=== PATIENT | female | born 1950 | race Caucasian/White ===

== ENCOUNTER 2020-09-05 00:20 | Emergency (ER) | payer MEDICARE ==
[2020-09-05] MEDS ORDERED: TYLENOL 325 MG PO STA (00:49)
[2020-09-05 01:07] LABS: Absolute Neutrophil Ct (ANC) 4.28 (1.4-6.9); BASOPHIL % 0.2 % (0.0-0.4); Basophil (Absolute #) 0.02 (0-0.4); Eosinophil % 3.4 % (0.00-5.0); Eosinophil (Absolute #) 0.28 (0-0.5); Hematocrit 42.3 % (35-47); Hemoglobin 13.6 gm/dl (12.0-16.0); Lymphocyte (Absolute #) 2.92 (1.0-4.6); Lymphocytes % 35.1 % (24.0-44.0); Mean Cell Volume 93.6 fl (78-100); Mean Corpuscular Hemoglobin 30.1 pg (26-32); Mean Corpuscular Hgb Concent. 32.2 g/dl (32-36); Mean Platelet Volume 10.4 fl (7.5-11.0); Monocyte (Absolute #) 0.81 (0.0-1.3); Monocytes % 9.7 % (0.0-12.0); Neutrophil % 51.6 % (36.0-66.0); Platelet Count 196 K/mm3 (150-450); Red Blood Count 4.52 M/mm3 (4.1-5.4); Red Cell Distribution Width 13.3 % (11.5-14.0); White Blood Count 8.3 K/mm3 (4.0-10.5)
[2020-09-05] MEDS ORDERED: TYLENOL 325 MG ONE (01:12)
[2020-09-05 01:13] LABS: INR 1.17 (0.8-3.0); PROTIME 13.2 SECONDS (9.95-12.35)
[2020-09-05 01:15] LABS: PTT 29.7 SECONDS (25.3-37.0)
[2020-09-05 01:17] LABS: ALBUMIN 4.3 g/dL (3.5-5.0); ALKALINE PHOSPHATASE 110 U/L (38-126); ANION GAP 9.4 MEQ/L (5-15); BLOOD UREA NITROGEN 16 mg/dL (7-17); CHLORIDE 99 mmol/L (98-107); Calcium 9.7 mg/dL (8.4-10.2); Carbon Dioxide 31 mmol/L (22-30); Creatinine 1 0.66 mg/dL (0.52-1.04); EST GLOMERULAR FILTRATION RATE > 60.0 ML/MIN; Glucose 156 mg/dL (74-106); Potassium 3.4 mmol/L (3.5-5.1); SGOT/AST 32 U/L (14-36); SGPT/ALT 26 U/L (0-35); SODIUM 136 mmol/L (137-145); Total Protein 7.2 g/dL (6.3-8.2)
--- NOTE | 2020-09-05 02:11 | ERPHSYRPT ---
- History of Present Illness Time Seen by Provider: 09/05/20 00:28 Source: patient Exam Limitations: no limitations Patient Subjective Stated Complaint: pt c/o headache Triage Nursing Assessment: pt c/o headache to rt posterior side, s/p acute right MCA stroke on 08/29/20. Pt was just released on 08/31/20 from [facility]. will obtain med records from [facility]. Pt states, "headache woke me up from sleep, it's an intermittent headache, just a pain, not throbbing or anything". Glascow Coma scale is 0. Physician History: 70 years old female with history of hypertension, hyperlipidemia, diabetes mellitus, hypothyroidism with recent right MCA stroke 08/29/2020 with residual visual symptoms who was discharged from [facility] 08/31/2020 presented in the ER with sudden onset right temporal headache which woke her up from sleep almost an hour prior to arrival. Patient described this as a sharp nature pain moderat e intensity without any significant aggravating or relieving factors. Denies any associated numbness tingling or focal weakness. No difficulty speech. She has visual disturbance from her previous stroke which is not any worse than usual since then. Denies any difficulty walking. No neck pain or stiffness. Denies any fever chills or recent sick contact. Patient reports last time when she had stroke was having headache for almost 2 weeks similar to this. Timing/Duration: hour(s) (1), sudden, worse Quality: sharpness Head Pain Location: parietal Severity of Pain-Max: moderate Severity of Pain-Current: moderate Associated Symptoms: visual disturbance, No confusion, No dizziness, No facial pain, No fever/chills, No light-headedness, No loss of consciousness, No nausea/vomiting, No nasal congestion, No nasal drainage, No neck pain, No nu mbness in legs/feet, No sweating, No seizures, No sinus infection, No sensitive to light, No speech problems, No stiff neck, No trouble walking, No weakness Previous symptoms: same symptoms as today Allergies/Adverse Reactions: erythromycin base Allergy (Verified 09/05/20 01:05) Anaphylactic Reaction iodine Allergy (Verified 09/05/20 01:05) Anaphylactic Reaction procaine [From Novocain] Allergy (Verified 09/05/20 01:03) Anaphylactic Reaction azithromycin [From Zithromax] Adverse Reaction (Verified 09/05/20 01:03) Rash Penicillins Adverse Reaction (Verified 09/05/20 01:03) Rash Sulfa (Sulfonamide Antibiotics) Adverse Reaction (Verified 09/05/20 01:03) Rash Home Medications: Atenolol 50 mg [Tenormin 50 mg] 50 mg DAILY 11/07/15 [History] Metformin HCl 500 mg [Glucophage 500 MG] 500 mg BID 11/07/15 [History] Amlodipine Besylate 5 mg [Norvasc 5 mg] 5 mg PO DAILY 09/05/20 [History] Aspirin 81 mg PO DAILY 09/05/20 [History] Atorvastatin Calcium 80 mg PO HS 09/05/20 [History] Azelastine HCl 1 drop BID PRN 09/05/20 [History] Clopidogrel Bisulfate 75 mg [PLAVIX 75 MG Tablet] 75 mg PO DAILY 09/05/20 [History] Glimepiride 1 mg PO DAILY 09/05/20 [History] Latanoprost/Pf [Latanoprost 0.005% Eye Drop] 1 drop DAILY 09/05/20 [History] Losartan Potassium 50 mg [Cozaar 50 MG] 50 mg PO DAILY 09/05/20 [History] Naproxen Sodium 550 mg PO BID PRN 09/05/20 [History] Hx Tetanus, Diphtheria Vaccination/Date Given: Yes Hx Influenza Vaccination/Date Given: Yes Hx Pneumococcal Vaccination/Date Given: Yes Immunizations Up to Date: No Travel Risk - International Travel Have you traveled outside of the country in past 3 weeks: No - Coronavirus Screening Are you exhibiting any of the following symptoms?: No Close contact with a COVID-19 positive Pt in past 14-21 Days: No - Review of Systems Constitutional: No Symptoms Eyes: Vision Changes, Double Vision Ears, Nose, & Throat: No Symptoms Respiratory: No Symptoms Cardiac: No Symptoms Abdominal/Gastrointestinal: No Symptoms Genitourinary Symptoms: No Symptoms Musculoskeletal: No Symptoms Skin: No Symptoms Neurological: Headache Psychological: No Symptoms Endocrine: No Symptoms Hematologic/Lymphatic: No Symptoms Immunological/Allergic: No Symptoms - Past Medical History Pertinent Past Medical History: Yes Neurological History: Stroke ENT History: Other Cardiac History: High Cholesterol, Hypertension Respiratory History: No Pertinent History Endocrine Medical History: Diabetes Type II, Hypothyroidism Musculoskeletal History: Osteoarthritis GI Medical History: GERD History: No Pertinent History Psycho-Social History: No Pertinent History Female Reproductive Disorders: No Pertinent History Other Medical History: hearing loss - Past Surgical History Past Surgical History: Yes Neuro Surgical History: No Pertinent History Cardiac: No Pertinent History Respiratory: No Pertinent History Gastrointestinal: Cholecystectomy Genitourinary: No Pertinent History Female Surgical History: Section Other Surgical History: tonsils - Social History Smoking Status: Never smoker Exposure to second hand smoke: No Drug Use: none Patient Lives Alone: No - Nursing Vital Signs Nursing Vital Signs: Initial Vital Signs Temperature 98.5 F 09/05/20 00:26 Pulse Rate 72 09/05/20 00:26 Respiratory Rate 18 09/05/20 00:26 Blood Pressure 196/81 09/05/20 00:26 O2 Sat by Pulse Oximetry 99 09/05/20 00:26 Pain Scale Pain Intensity 5 - Physical Exam General Appearance: no apparent distress Eye Exam: PERRL/EOMI, eyes nml inspection Ears, Nose, Throat Exam: normal ENT inspection, TMs normal, pharynx normal Neck Exam: normal inspection, non-tender, supple, full range of motion Respiratory Exam: normal breath sounds, lungs clear Cardiovascular Exam: regular rate/rhythm, normal heart sounds Gastrointestinal/Abdominal Exam: soft, normal bowel sounds Back Exam: normal inspection, normal range of motion Extremity Exam: normal inspection, normal range of motion Mental Status Exam: alert, oriented x 3, 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 Exam: normal hearing, normal speech, PERRL, No abnormal eye position Coordination/Gait Exam: normal finger to nose, normal gait, normal cerebellar function, negative Romberg's sign Motor/Sensory Exam: no motor deficit, no sensory deficit, no pronator drift, negative Babinski's sign DTR Exam: bicep (R): 2+, bicep (L): 2+, knee (R): 2+, knee (L): 2+ Skin Exam: normal color SpO2 Interpretation: normal SpO2: 100 O2 Delivery: Room Air - Course EKG Interpreted by Me: RATE (70), Sinus Rhythm, NORMAL AXIS, NORMAL INTERVALS, Other (Nonspecific ST and T wave changes) Ordered Tests: Active Orders 24 hr Category Date Time Status Alterations Tailor STAT Care 09/05/20 00:36 Active EKG-ER Only STAT Care 09/05/20 00:35 Active IV Insertion STAT Care 09/05/20 00:35 Active NPO (ED) STAT Care 09/05/20 00:35 Active POCT Glucose Check STAT Care 09/05/20 00:35 Active HEAD WITHOUT CONTRAST [CT] Stat Exams 09/05/20 00:36 Taken CBC W DIFF Stat Lab 09/05/20 01:03 Completed CMP Stat Lab 09/05/20 01:03 Completed PROTIME WITH INR Stat Lab 09/05/20 01:03 Completed PTT Stat Lab 09/05/20 01:03 Completed UA W/RFX UR CULTURE Stat Lab 09/05/20 00:35 Ordered Medication Summary Discontinued Medications Generic Name Dose Route Start Last Admin Trade Name Freq PRN Reason Stop Dose Admin Acetaminophen 975 mg 09/05/20 00:49 09/05/20 01:13 Tylenol 325 Mg PO 09/05/20 00:50 975 mg STAT STA Administration Acetaminophen Confirm 09/05/20 01:12 Tylenol 325 Mg Administered 09/05/20 01:13 Dose 975 mg .ROUTE .STK-MED ONE Lab/Rad Data: Laboratory Result Diagrams 09/05/20 01:03 09/05/20 01:03 Laboratory Results 09/05/20 09/05/20 09/05/20 Range/Units 01:03 01:03 01:03 WBC 8.3 (4.0-10.5) K/mm3 RBC 4.52 (4.1-5.4) M/mm3 Hgb 13.6 (12.0-16.0) gm/dl Hct 42.3 (35-47) % MCV 93.6 (78-100) fl MCH 30.1 (26-32) pg MCHC 32.2 (32-36) g/dl RDW 13.3 (11.5-14.0) % Plt Count 196 (150-450) K/mm3 MPV 10.4 (7.5-11.0) fl Gran % 51.6 (36.0-66.0) % Eos # (Auto) 0.28 (0-0.5) Absolute Lymphs (auto) 2.92 (1.0-4.6) Absolute Monos (auto) 0.81 (0.0-1.3) Lymphocytes % 35.1 (24.0-44.0) % Monocytes % 9.7 (0.0-12.0) % Eosinophils % 3.4 (0.00-5.0) % Basophils % 0.2 (0.0-0.4) % Absolute Granulocytes 4.28 (1.4-6.9) Basophils # 0.02 (0-0.4) PT 13.2 H (9.95-12.35) SECONDS INR 1.17 (0.8-3.0) APTT 29.7 (25.3-37.0) SECONDS Sodium 136 L (137-145) mmol/L Potassium 3.4 L (3.5-5.1) mmol/L Chloride 99 (98-107) mmol/L Carbon Dioxide 31 H (22-30) mmol/L Anion Gap 9.4 (5-15) MEQ/L BUN 16 (7-17) mg/dL Creatinine 0.66 (0.52-1.04) mg/dL Estimated GFR > 60.0 ML/MIN Glucose 156 H (74-106) mg/dL Calcium 9.7 (8.4-10.2) mg/dL Total Bilirubin 2.10 H (0.2-1.3) mg/dL AST 32 (14-36) U/L ALT 26 (0-35) U/L Alkaline Phosphatase 110 (38-126) U/L Serum Total Protein 7.2 (6.3-8.2) g/dL Albumin 4.3 (3.5-5.0) g/dL - Progress Progress: improved Air Movement: good Progress Note: 09/05/20 02:15 70 years old is evaluated for sudden onset right parietal headache with symptoms similar to last time when she had MCA stroke almost a week ago. She is made stroke activated. Prompt CT head without contrast is obtained which is negative for intracranial bleed, midline shift or mass-effect. Baseline labs are grossly unremarkable. Given Tylenol, on reevaluation her headache is much better. [facility] neurology consult is obtained commended 81 mg aspirin, ESR/CRP and observation admission with repeat MRI in the morning. I have offered admission to patient in here but she does not want to stay here, wants to go to [facility] where she was treated for her stroke. I have discussed with [facility] hospitalist and patient is accepted for transfer. 01/14/21 02:17 Blood Culture(s) Obtained: No Antibiotics given: No Discussed with DrKaylynn: Other (Dr. Mcgee [facility] neurology) Counseled pt/family regarding: lab results, diagnosis, rad results - Departure Departure Disposition: Transfer Clinical Impression: Stroke-like symptom Condition: Stable Critical Care Time: Yes Critical Care Time(excluding separately billable procedures): Critical 30-74 mins Referrals: Provider,Unknown [Primary Care Provider] -
[2020-09-05] MEDS ORDERED: BABY ASPIRIN 81 MG CHEW PO ONE (02:17)
[2020-09-05 03:01] LABS: Appearance CLEAR (CLEAR); Bacteria MANY /HPF (NEGATIVE); Bilirubin NEGATIVE (NEGATIVE); Blood NEGATIVE Ery/ul (0-5); Epithelial Cells RARE /HPF (FEW); Glucose NEGATIVE (NEGATIVE); Ketones NEGATIVE (NEGATIVE); Leukocyte Esterase SMALL (NEGATIVE); Mucus SLIGHT /HPF (NEGATIVE); Nitrite NEGATIVE (NEGATIVE); Non-Squamous Epithelial Cells RARE /HPF (FEW); Protein,Urine Dip NEGATIVE (Negative); RBC 0-2 /HPF (0-2); Urobilinogen NEGATIVE mg/dL (0-1)
[2020-09-05 03:09] VITALS: BP 164/78; PULSE 64; O2SAT 99
--- NOTE | 2020-09-05 09:21 | XRAY ---
Indication: Right-sided headache with recent stroke 1 week ago. Multiple contiguous axial images obtained through the head without contrast. Comparison: September 23, 2008. Age-appropriate global atrophy with new mild periventricular degenerative micro-ischemia bilaterally. Right temporal lobe demonstrates new patchy subcortical hypoattenuation presumed known infarct as clinically reported. No acute intracranial hemorrhage, abnormal extra-axial fluid collection, or mass effect. Fourth ventricle is midline without hydrocephalus. Bony calvarium intact. Visualized paranasal sinuses and mastoid air cells are clear. Impression: 1. New right temporal lobe subcortical hypoattenuation presumed known infarct. No acute hemorrhage or mass effect. 2. Atrophy and degenerative micro-ischemia within normal limits for patient's age. Comment: Preliminary interpretation was made by [facility]. No critical discrepancy.
== END 2020-09-05 03:22 | disposition short-term general hospital (02) ==
LOC: ED 00:20
DX: R51.9 Headache, unspecified (principal); I10 Essential (primary) hypertension; E78.5 Hyperlipidemia, unspecified; E11.9 Type 2 diabetes mellitus without complications; E03.9 Hypothyroidism, unspecified; I25.2 Old myocardial infarction; E78.00 Pure hypercholesterolemia, unspecified; Z79.899 Other long term (current) drug therapy
CPT/HCPCS: 36000; 36415; 70450; 80053; 81001; 84484; 85025; 85610; 85652; 85730; 86140; 87077; 87086; 87186; 93005; 93041; 99285; 99291; Q3014; A9270-GY

== ENCOUNTER 2024-11-07 14:59 | Emergency (ER) | payer MEDICARE ==
[2024-11-07 15:10] VITALS: TEMP 97.6
--- NOTE | 2024-11-07 15:52 | ERPHSYRPT ---
- History of Present Illness Time Seen by Provider: 11/07/24 15:20 Source: patient Exam Limitations: no limitations Patient Subjective Stated Complaint: Pt states "I have a fx in my right knee and on wednesday night my right hip really started to hurt." Triage Nursing Assessment: Pt presented alert and oriented X 3, skin pwd. Pt ambulates with a cane and a limp PT right hip tender, non bruised. good CSM X 4 Physician History: This is a 74-year-old white female patient brought into the emergency department by private vehicle with a complaint of right hip pain. Patient did fracture her proximal tibia and tore her meniscus in her right knee in the recent past. In the last 2 days, she started having significant pain in her right hip. She has been walking with a cane. She describes the pain as sharp and constant. She states that she did not fall or have trauma to her right hip. Patient has a history of diabetes, hypertension and hyperlipidemia Occurred: days ago (2) Quality: constant, sharpness Severity of Pain-Max: moderate (When ambulating) Severity of Pain-Current: moderate (When ambulating) Lower Extremities Pain: hip: right Modifying Factors: Improves With: movement Associated Symptoms: other (Can bear weight. Hurts to bear weight) Allergies/Adverse Reactions: erythromycin base Allergy (Verified 09/05/20 01:05) Anaphylactic Reaction iodine Allergy (Verified 09/05/20 01:05) Anaphylactic Reaction procaine [From Novocain] Allergy (Verified 09/05/20 01:03) Anaphylactic Reaction azithromycin [From Zithromax] Adverse Reaction (Verified 09/05/20 01:03) Rash Penicillins Adverse Reaction (Verified 09/05/20 01:03) Rash Sulfa (Sulfonamide Antibiotics) Adverse Reaction (Verified 09/05/20 01:03) Rash Home Medications: Atenolol 50 mg [Tenormin 50 mg] 50 mg DAILY 11/07/15 [History] Metformin HCl 500 mg [Glucophage 500 MG] 500 mg BID 11/07/15 [History] Amlodipine Besylate 5 mg [Norvasc 5 mg] 5 mg PO DAILY 09/05/20 [History] Aspirin 81 mg PO DAILY 09/05/20 [History] Atorvastatin Calcium 80 mg PO HS 09/05/20 [History] Azelastine HCl 1 drop BID PRN 09/05/20 [History] Clopidogrel Bisulfate [PLAVIX Tablet] 75 mg PO DAILY 09/05/20 [History] Glimepiride 1 mg PO DAILY 09/05/20 [History] Latanoprost/Pf [Latanoprost 0.005% Eye Drop] 1 drop DAILY 09/05/20 [History] Losartan Potassium 50 mg [Cozaar 50 MG] 50 mg PO DAILY 09/05/20 [History] Naproxen Sodium 550 mg PO BID PRN 09/05/20 [History] Hx Tetanus, Diphtheria Vaccination/Date Given: Yes Hx Influenza Vaccination/Date Given: Yes Hx Pneumococcal Vaccination/Date Given: Yes Immunizations Up to Date: No Travel Risk - International Travel Have you traveled outside of the country in past 3 weeks: No - Emerging Infectious Disease Are you exhibiting symptoms associated with any current EIDs: No - Review of Systems Constitutional: No Symptoms Eyes: No Symptoms Ears, Nose, & Throat: No Symptoms Respiratory: No Symptoms Cardiac: No Symptoms Abdominal/Gastrointestinal: No Symptoms Genitourinary Symptoms: No Symptoms Musculoskeletal: Joint Pain (Right hip pain when ambulating) Skin: No Symptoms Neurological: No Symptoms Psychological: No Symptoms Endocrine: No Symptoms Hematologic/Lymphatic: No Symptoms Immunological/Allergic: No Symptoms All Other Systems: Reviewed and Negative - Past Medical History Pertinent Past Medical History: Yes Neurological History: Stroke ENT History: Other Cardiac History: High Cholesterol, Hypertension Respiratory History: No Pertinent History Endocrine Medical History: Diabetes Type II, Hypothyroidism Musculoskeletal History: Arthritis, Fractures GI Medical History: GERD History: No Pertinent History Psycho-Social History: No Pertinent History Female Reproductive Disorders: No Pertinent History Other Medical History: R DROP FOOT FROM PREVIOUS INJURY >20 YEARS AGO, GALLBLADDER REMOVAL - Past Surgical History Past Surgical History: Yes Neuro Surgical History: No Pertinent History Cardiac: No Pertinent History Respiratory: No Pertinent History Gastrointestinal: Cholecystectomy Genitourinary: No Pertinent History Female Surgical History: Section Other Surgical History: tonsils - Social History Smoking Status: Never smoker Exposure to second hand smoke: No Drug Use: none - Social Determinants of Health Will the patient participate in the screening: Declined to provide - Nursing Vital Signs Nursing Vital Signs: Initial Vital Signs Temperature 97.6 F 11/07/24 15:03 Pulse Rate 67 11/07/24 15:03 Respiratory Rate 18 11/07/24 15:03 Blood Pressure 194/92 11/07/24 15:03 O2 Sat by Pulse Oximetry 98 11/07/24 15:03 Pain Scale Pain Intensity 8 - Physical Exam General Appearance: no apparent distress, alert, anxiety, thin Eyes, Ears, Nose, Throat Exam: normal ENT inspection, moist mucous membranes Neck Exam: normal inspection, non-tender, supple, full range of motion Cardiovascular/Respiratory Exam: chest non-tender, no respiratory distress Back Exam: normal inspection, normal range of motion, No CVA tenderness, No vertebral tenderness Hips Exam: right: bone tenderness, soft tissue tenderness, left: non-tender, bilateral: normal inspection, normal range of motion, no evidence of injury Legs Exam: bilateral leg: non-tender, normal inspection, normal range of motion, no evidence of injury Knees Exam: bilateral knee: non-tender, normal inspection, normal range of motion, no evidence of injury Ankle Exam: bilateral ankle: non-tender, normal inspection, normal range of motion, no evidence of injury Foot Exam: bilateral foot: non-tender, normal inspection, normal range of motion, no evidence of injury Neuro/Tendon Exam: normal sensation, normal motor functions, normal tendon functions Mental Status Exam: alert, oriented x 3, cooperative Skin Exam: normal color, warm, dry SpO2 Interpretation: normal SpO2: 98 O2 Delivery: Room Air - Course Nursing assessment & vital signs reviewed: Yes Ordered Tests: Active Orders 24 hr Category Date Time Status HIP UNI (2V) INCL PEL IF DONE Stat Exams 11/07/24 15:20 Completed - Progress Progress: unchanged Progress Note: 11/07/24 15:51 My medical decision making and the assignment of low complexity to this patient's medical issue today is based on review of the patient's past medical history, review of patient's medication list, reviewed patient drug allergy list, history present illness and physical findings on examination. The workup in this patient includes x-ray of the patient's right hip and pelvis. Differential diagnosis includes but is not limited to fracture/dislocation right hip, right hip contusion, pelvis fracture/dislocation 11/07/24 16:29 The right hip and pelvis x-ray was interpreted by the radiologist and I reviewed the impression. The impression states no acute fracture or dislocation. 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 11/07/24 16:40 I spoke with the patient regarding pain control. She does not want any oral narcotics here she prefers an injection of steroid intramuscularly here in the emergency department. She has had tramadol in the past which has worked well for her. She also has tolerated prednisone in the past. She would like both a prescription for oral tramadol and oral prednisone to be sent to her pharmacy. Counseled pt/family regarding: diagnosis, need for follow-up, rad results Medical Desision Making - Independent Historian Additional History obtained from: Spouse - Diagnostic Testing Diagnostic test were ordered, analyzed, and reviewed by me: Yes Radiological Interpretation: Reviewed by me, Teleradiologist Report - Risk of complications The pt has a mod risk of morbidity or mortality based on: Need for prescription drug management - Departure Departure Disposition: Home Clinical Impression: Right hip pain Condition: Stable Critical Care Time: No Referrals: Darshana VELIZ [Primary Care Provider] - Follow up/PCP as directed Additional Instructions: May alternate ice and heat to tender right hip. Do this 3 times a day for the next 3 days. Call your prescribing provider tomorrow, 11/08/2024, to make arrangements for follow-up appointment for further evaluation management. Take your medications as prescribed. Stop your naproxen while taking the prednisone. Once you complete the prednisone regimen, you may restart your naproxen Prescriptions: Prednisone 10 mg [Deltasone 10 mg] 10 mg PO TID #12 tablet Tramadol HCl 50 mg [Ultram 50 mg] 50 mg PO BID PRN PRN #10 tablet PRN Reason: Moderate To Severe Pain
[2024-11-07 16:08] VITALS: PULSE 59
--- NOTE | 2024-11-07 16:26 | XRAY ---
Indication: Right hip pain. Comparison: None AP pelvis and 2 view right hip demonstrates osteopenia and moderate lower lumbar degenerative spondylosis. No other bony, articular, or soft tissue abnormalities.
[2024-11-07] MEDS ORDERED: solu-MEDROL ONE (16:48)
[2024-11-07] MEDS: solu-MEDROL 125 MG, Sterile H2O 10 ml 2 ML IM ONE (16:52)
[2024-11-07 17:06] VITALS: BP 189/73; O2SAT 100
[2024-11-07 17:07] VITALS: RESP 12
== END 2024-11-07 17:15 | disposition home or self-care (01) ==
LOC: ED 14:59
DX: M25.551 Pain in right hip (principal); E11.9 Type 2 diabetes mellitus without complications; I10 Essential (primary) hypertension; E78.5 Hyperlipidemia, unspecified; Z79.84 Long term (current) use of oral hypoglycemic drugs; Z79.02 Long term (current) use of antithrombotics/antiplatelets; Z79.52 Long term (current) use of systemic steroids; Z79.891 Long term (current) use of opiate analgesic; Z79.899 Other long term (current) drug therapy
CPT/HCPCS: 73502; 96372; 99283; J2919

== ENCOUNTER 2025-06-05 11:34 | Observation (INO) | payer MEDICARE ==
--- NOTE | 2025-06-05 11:49 | ERPHSYRPT ---
- History of Present Illness Time Seen by Provider: 06/05/25 11:37 Physician History: This is a 75-year-old female on "blood thinners" who is fallen 3 times today. Patient denies syncope. Patient does not know why she is falling. She states she struck her head and the back occipital region but is denying headache. Denies neck pain. She denies any chest pain or anginal equivalent type symptoms. No focal neurologic changes. No numbness, tingling, speech or swallowing difficulty. Patient has been moving all extremities. She denies any cough, fever, chills. No nausea, vomiting or diarrhea. Denies urinary symptoms. Patient states she is hard of hearing due to having "wax in my ears". Allergies/Adverse Reactions: erythromycin base Allergy (Verified 06/05/25 11:37) Anaphylactic Reaction iodine Allergy (Verified 06/05/25 11:37) Anaphylactic Reaction procaine [From Novocain] Allergy (Verified 06/05/25 11:37) Anaphylactic Reaction azithromycin [From Zithromax] Adverse Reaction (Verified 06/05/25 11:37) Rash Penicillins Adverse Reaction (Verified 06/05/25 11:37) Rash Sulfa (Sulfonamide Antibiotics) Adverse Reaction (Verified 06/05/25 11:37) Rash Home Medications: Atenolol 50 mg [Tenormin 50 mg] 50 mg PO DAILY 11/07/15 [History] Metformin HCl 500 mg [Glucophage 500 MG] 500 mg PO BID 11/07/15 [History] Aspirin 81 mg PO DAILY 09/05/20 [History] Azelastine HCl 1 drop DROPS BID PRN 09/05/20 [History] Clopidogrel Bisulfate [PLAVIX Tablet] 75 mg PO DAILY 09/05/20 [History] Glimepiride 1.5 mg PO DAILY 09/05/20 [History] Losartan Potassium 50 mg [Cozaar 50 MG] 100 mg PO DAILY 09/05/20 [History] Naproxen Sodium 550 mg PO BID 09/05/20 [History] Cholecalciferol (Vitamin D3) [Vitamin D3] 50 mcg PO DAILY 06/05/25 [History] Cyclobenzaprine HCl 5 mg PO HS PRN 06/05/25 [History] Ezetimibe 10 mg [Zetia 10 MG] 10 mg PO HS 06/05/25 [History] Hydrochlorothiazide 25 mg [hydroDIURIL 25 MG] 25 mg PO DAILY 06/05/25 [History] Levothyroxine Sodium 88 Mcg [Synthroid 88 Mcg] 88 mcg PO DAILY 06/05/25 [History] Hx Tetanus, Diphtheria Vaccination/Date Given: Yes Hx Influenza Vaccination/Date Given: Yes Hx Pneumococcal Vaccination/Date Given: Yes Travel Risk - Emerging Infectious Disease Are you exhibiting symptoms associated with any current EIDs: No - Review of Systems All Other Systems: Reviewed and Negative (As per HPI otherwise negative) - Past Medical History Pertinent Past Medical History: Yes Neurological History: Stroke ENT History: Other Cardiac History: High Cholesterol, Hypertension Respiratory History: No Pertinent History Endocrine Medical History: Diabetes Type II, Hypothyroidism Musculoskeletal History: Arthritis, Fractures GI Medical History: GERD History: No Pertinent History Psycho-Social History: No Pertinent History Female Reproductive Disorders: No Pertinent History Other Medical History: R DROP FOOT FROM PREVIOUS INJURY >20 YEARS AGO, GALLBLADDER REMOVAL - Past Surgical History Past Surgical History: Yes Neuro Surgical History: No Pertinent History Cardiac: No Pertinent History Respiratory: No Pertinent History Gastrointestinal: Cholecystectomy Genitourinary: No Pertinent History Female Surgical History: Section Other Surgical History: tonsils - Social History Smoking Status: Never smoker Exposure to second hand smoke: No Drug Use: none - Social Determinants of Health Will the patient participate in the screening: Declined to provide - Nursing Vital Signs Nursing Vital Signs: Initial Vital Signs Temperature 96.8 F 06/05/25 11:38 Pulse Rate 64 06/05/25 11:38 Respiratory Rate 18 06/05/25 11:38 Blood Pressure 211/94 06/05/25 11:38 O2 Sat by Pulse Oximetry 98 06/05/25 11:38 Pain Scale Pain Intensity 5 - Physical Exam SpO2: 98 Comments: 06/05/25 11:48 General: Well-nourished well-developed. No apparent distress. Strong urine smell. HEENT: Normocephalic atraumatic no obvious facial or neck deformity or injury. Cerumen in right ear. Left ear some cerumen around the TM. Neck: Supple. No deformity or mass noted. CV: RRR NL Perfusion. No edema Resp: No Respiratory distress or adventitious breath sounds Abd: ND SNT MSK: No deformity. Patient has bruising of bilateral knee Patellar region as well as bruising in her right proximal tibia. She has most of her tenderness over the right patella and proximal tibia. Patient otherwise has full range of motion of all joints without pain including the spine. Neuro: Alert and [place] x4. No gross focal neurologic changes Psych: No SI, HI or grave disability Ordered Tests: Active Orders 24 hr Category Date Time Status EKG-ER Only STAT Care 06/05/25 11:42 Active IV Insertion STAT Care 06/05/25 11:42 Active Observation [Place in Observation] ROUTINE Care 06/05/25 14:31 Active Pulse Oximetry (ED) STAT Care 06/05/25 11:42 Active Pulse Oximetry (ED) STAT Care 06/05/25 12:27 Active Straigth Cath [Cath for Specimen-Straight] STAT Care 06/05/25 11:44 Active Telemetry q6h Care 06/05/25 14:33 Active CERVICAL SPINE WO CONTRAST [CT] Stat Exams 06/05/25 11:40 Completed CHEST 1 VIEW (PORTABLE) Stat Exams 06/05/25 11:38 Completed HEAD WITHOUT CONTRAST [CT] Stat Exams 06/05/25 11:40 Completed KNEE (3 VIEWS) Stat Exams 06/05/25 11:38 Completed KNEE (3 VIEWS) Stat Exams 06/05/25 11:39 Completed LOWER LEG Stat Exams 06/05/25 11:41 Completed CBC W DIFF Stat Lab 06/05/25 12:05 Completed CMP Stat Lab 06/05/25 12:05 Completed CULTURE,URINE Stat Lab 06/05/25 11:43 Received ETHYL ALCOHOL Stat Lab 06/05/25 12:05 Completed Lactic Acid Stat Lab 06/05/25 11:42 Completed MAGNESIUM Stat Lab 06/05/25 12:05 Completed PROTIME WITH INR Stat Lab 06/05/25 12:05 Completed PTT Stat Lab 06/05/25 12:05 Completed TROPONIN Q4H Lab 06/05/25 12:05 Completed TROPONIN Q4H Lab 06/05/25 15:45 Ordered UA W/RFX UR CULTURE Stat Lab 06/05/25 11:43 Completed Medication Summary Generic Name Dose Route Start Last Admin Trade Name Freq PRN Reason Stop Dose Admin Ceftriaxone Sodium 1 gm in 100 mls @ 200 mls/hr 06/06/25 10:00 Rocephin 1 Gm / 100 Ml Nacl IV 07/06/25 09:59 [id number] [facility] Lab/Rad Data: Laboratory Result Diagrams 06/05/25 12:05 06/05/25 12:05 Laboratory Results 06/05/25 06/05/25 06/05/25 Range/Units 12:05 12:05 12:05 WBC (3.98-10.04) x10^3/uL RBC (3.93-5.22) x10^6/uL Hgb (11.2-15.7) g/dL Hct (34.1-44.9) % MCV (79.4-94.8) fL MCH (25.6-32.2) pg MCHC (32.2-35.5) g/dL RDW (11.7-14.4) % Plt Count (182-369) x10^3/uL MPV (9.4-12.3) fL Gran % (34.0-71.1) % Immature Gran % (Auto) (0.001-0.429) % Nucleat RBC Rel Count (0.00-0.2) % Eos # (Auto) (0.04-0.36) x10^3/uL Immature Gran # (Auto) (0.001-0.031) x10^3u/L Absolute Lymphs (auto) (1.18-3.74) x10^3/uL Absolute Monos (auto) (0.24-0.86) x10^3/uL Absolute Nucleated RBC (0.00-0.012) x10^3u/L Lymphocytes % (19.3-51.7) % Monocytes % (4.7-12.5) % Eosinophils % (0.7-5.8) % Basophils % (0.1-1.2) % Absolute Granulocytes (1.56-6.13) x10^3/uL Basophils # (0.01-0.08) x10^3/uL PT 10.8 (9.4-12.5) SECONDS INR 0.96 (0.8-3.0) APTT 22.6 L (25.1-36.5) SECONDS Sodium 136 (135-145) mmol/L Potassium 4.3 (3.5-5.1) mmol/L Chloride 98 (98-107) mmol/L Carbon Dioxide 30 (22-30) mmol/L Anion Gap 12.2 (5-15) MEQ/L BUN 19 H (7-17) mg/dL Creatinine 0.89 (0.52-1.04) mg/dL Estimated GFR 67.6 ML/MIN Glucose 222 H (74-106) mg/dL Lactic Acid (0.4-2.0) Calcium 9.5 (8.4-10.2) mg/dL Magnesium 1.6 (1.6-2.3) mg/dL Total Bilirubin 2.00 H (0.2-1.3) mg/dL AST 37 H (14-36) U/L ALT 39 H (0-35) U/L Alkaline Phosphatase 162 H (38-126) U/L Troponin I < 0.012 (0.000-0.033) ng/mL Serum Total Protein 6.8 (6.3-8.2) g/dL Albumin 4.1 (3.5-5.0) g/dL Urine Color (Yellow) Urine Appearance (Clear) Urine pH (4.6-8.0) Ur Specific [place] (1.005-1.030) Urine Protein (Negative) Urine Glucose (UA) (Negative) mg/dL Urine Ketones (Negative) Urine Blood (Negative) Urine Nitrite (Negative) Urine Bilirubin (Negative) Urine Urobilinogen (0.2) mg/dL Ur Leukocyte Esterase (Negative) U Hyaline Cast (Auto) (0-2) /LPF Urine Microscopic RBC (0-5) /HPF Urine Microscopic WBC (0-5) /HPF Ur Epithelial Cells (None Seen) /HPF Urine Bacteria (None Seen) /HPF Urine Culture Reflexed (NO) Ethyl Alcohol < 10 (0-10) mg/dL 06/05/25 06/05/25 06/05/25 Range/Units 12:05 11:43 11:42 WBC 10.9 H (3.98-10.04) x10^3/uL RBC 4.16 (3.93-5.22) x10^6/uL Hgb 12.5 (11.2-15.7) g/dL Hct 39.0 (34.1-44.9) % MCV 93.8 (79.4-94.8) fL MCH 30.0 (25.6-32.2) pg MCHC 32.1 L (32.2-35.5) g/dL RDW 13.2 (11.7-14.4) % Plt Count 204 (182-369) x10^3/uL MPV 9.6 (9.4-12.3) fL Gran % 72.3 H (34.0-71.1) % Immature Gran % (Auto) 0.4 (0.001-0.429) % Nucleat RBC Rel Count 0.0 (0.00-0.2) % Eos # (Auto) 0.31 (0.04-0.36) x10^3/uL Immature Gran # (Auto) 0.04 H (0.001-0.031) x10^3u/L Absolute Lymphs (auto) 1.92 (1.18-3.74) x10^3/uL Absolute Monos (auto) 0.70 (0.24-0.86) x10^3/uL Absolute Nucleated RBC 0.00 (0.00-0.012) x10^3u/L Lymphocytes % 17.6 L (19.3-51.7) % Monocytes % 6.4 (4.7-12.5) % Eosinophils % 2.8 (0.7-5.8) % Basophils % 0.5 (0.1-1.2) % Absolute Granulocytes 7.86 H (1.56-6.13) x10^3/uL Basophils # 0.05 (0.01-0.08) x10^3/uL PT (9.4-12.5) SECONDS INR (0.8-3.0) APTT (25.1-36.5) SECONDS Sodium (135-145) mmol/L Potassium (3.5-5.1) mmol/L Chloride (98-107) mmol/L Carbon Dioxide (22-30) mmol/L Anion Gap (5-15) MEQ/L BUN (7-17) mg/dL Creatinine (0.52-1.04) mg/dL Estimated GFR ML/MIN Glucose (74-106) mg/dL Lactic Acid 1.7 (0.4-2.0) Calcium (8.4-10.2) mg/dL Magnesium (1.6-2.3) mg/dL Total Bilirubin (0.2-1.3) mg/dL AST (14-36) U/L ALT (0-35) U/L Alkaline Phosphatase (38-126) U/L Troponin I (0.000-0.033) ng/mL Serum Total Protein (6.3-8.2) g/dL Albumin (3.5-5.0) g/dL Urine Color Dark Yellow A (Yellow) Urine Appearance Clear (Clear) Urine pH 5.0 (4.6-8.0) Ur Specific [place] 1.025 (1.005-1.030) Urine Protein 100 A (Negative) Urine Glucose (UA) 100 A (Negative) mg/dL Urine Ketones Negative (Negative) Urine Blood Negative (Negative) Urine Nitrite Negative (Negative) Urine Bilirubin Negative (Negative) Urine Urobilinogen 1.0 A (0.2) mg/dL Ur Leukocyte Esterase Negative (Negative) U Hyaline Cast (Auto) 3-5 A (0-2) /LPF Urine Microscopic RBC 0-2 (0-5) /HPF Urine Microscopic WBC 0-2 (0-5) /HPF Ur Epithelial Cells Rare (None Seen) /HPF Urine Bacteria Moderate A (None Seen) /HPF Urine Culture Reflexed ORDERED SEPARATELY (NO) Ethyl Alcohol (0-10) mg/dL - Progress Progress Note: 06/05/25 14:30 Patient having unwitnessed syncopal versus presyncopal episodes. She has a bruise that she cannot explain. I feel she needs to be evaluated for monitoring and stability as I do not feel she can be on her own at home. She has had no family arrive or other caregivers. I also feel she could benefit from echocardiogram overnight monitoring. Blood pressure will be addressed. I have spoken to hospitalist who accept patient for observation admission. 06/05/25 14:52 2:50 PM: Spoke with patient on follow-up in a friend's now available. Apparently this morning she had some numbness in the forearm and hand. Initially denied any numbness or tingling on exam. Symptoms have resolved. Patient does have history of hypertension. Did not take her medications today. Will give a single dose of hydralazine. Will not lower the pressure greatly due to patient may have had a TIA as she does have a history of strokes. Currently NIH stroke scale is 0. 06/05/25 14:54 - Departure Departure Disposition: Observation Clinical Impression: Falls frequently, Tingling of left upper extremity Syncope Qualifiers: Syncope type: unspecified Qualified Code(s): R55 - Syncope and collapse UTI (urinary tract infection) Qualifiers: Urinary tract infection type: site unspecified Hematuria presence: without hematuria Qualified Code(s): N39.0 - Urinary tract infection, site not specified Hypertension Qualifiers: Hypertension type: unspecified Qualified Code(s): I10 - Essential (primary) hypertension Condition: Stable Critical Care Time: Yes Critical Care Time(excluding separately billable procedures): Critical 30-74 mins Referrals: Darshana VELIZ [Primary Care Provider, UNKNOWN] - Follow up/PCP as directed
[2025-06-05 12:09] LABS: BASOPHIL % 0.5 % (0.1-1.2); Basophil (Absolute #) 0.05 x10^3/uL (0.01-0.08); Eosinophil (Absolute #) 0.31 x10^3/uL (0.04-0.36); Hematocrit 39.0 % (34.1-44.9); Hemoglobin 12.5 g/dL (11.2-15.7); IMMATURE GRAN # 0.04 x10^3u/L (0.001-0.031); IMMATURE GRAN % 0.4 % (0.001-0.429); Lymphocyte (Absolute #) 1.92 x10^3/uL (1.18-3.74); Mean Corpuscular Hemoglobin 30.0 pg (25.6-32.2); Mean Corpuscular Hgb Concent. 32.1 g/dL (32.2-35.5); Monocyte (Absolute #) 0.70 x10^3/uL (0.24-0.86); NUCLEATED RBC # 0.00 x10^3u/L (0.00-0.012); NUCLEATED RBC % 0.0 % (0.00-0.2); Platelet Count 204 x10^3/uL (182-369); Red Blood Count 4.16 x10^6/uL (3.93-5.22); White Blood Count 10.9 x10^3/uL (3.98-10.04)
[2025-06-05 12:23] LABS: INR 0.96 (0.8-3.0); PROTIME 10.8 SECONDS (9.4-12.5); PTT 22.6 SECONDS (25.1-36.5)
[2025-06-05 12:30] LABS: Calcium 9.5 mg/dL (8.4-10.2); Carbon Dioxide 30 mmol/L (22-30); Creatinine 1 0.89 mg/dL (0.52-1.04); EST GLOMERULAR FILTRATION RATE 67.6 ML/MIN; ETHYL ALCOHOL < 10 mg/dL (0-10); Glucose 222 mg/dL (74-106); Potassium 4.3 mmol/L (3.5-5.1); SGOT/AST 37 U/L (14-36); SGPT/ALT 39 U/L (0-35); Total Protein 6.8 g/dL (6.3-8.2)
[2025-06-05 13:08] LABS: Glucose, Urine 100 mg/dL (Negative); Protein,Urine Dip 100 (Negative); RBC 0-2 /HPF (0-5); WBC 0-2 /HPF (0-5)
--- NOTE | 2025-06-05 13:56 | XRAY ---
Indication: Fall. Comparison: None 3 view left knee demonstrates osteopenia, minimal medial joint space narrowing, and tiny suprapatella spurring. Tiny lateral supracondylar heterotopic ossifications either degenerative versus sequela old injury/inflammation. No acute findings.
--- NOTE | 2025-06-05 13:57 | XRAY ---
Indication: Fall. Comparison: None 3 view right knee demonstrates osteopenia, moderate/advanced tricompartmental degenerative changes greatest medial compartment, tiny nonspecific effusion, and anterior medial subcutaneous soft tissue swelling/edema. No other bony, articular, or soft tissue abnormalities.
--- NOTE | 2025-06-05 13:59 | XRAY ---
Indication: Pain following fall. Comparison: None 2 view right lower leg demonstrates osteopenia, right knee degenerative arthropathy reported separately, and tiny plantar heel spur. No other bony, articular, or soft tissue abnormalities.
--- NOTE | 2025-06-05 13:59 | XRAY ---
Indication: Syncope. Comparison: May 30, 2019 Portable chest inflated with a few tiny calcified granulomas. No focal infiltrate, consolidation, or large effusion. Heart not enlarged for AP portable technique. Bony thorax intact again with osteopenia and mild degenerative changes. Impression: Nonacute chest with chronic features.
--- NOTE | 2025-06-05 14:03 | XRAY ---
Indication: Fall. Head injury. Blood thinner therapy. Multiple contiguous axial images obtained through the head without contrast. Comparison: September 05, 2020 Again age-appropriate global atrophy and mild periventricular degenerative microischemia bilaterally. Previous right temporal lobe infarct has matured with progressive encephalomalacia. No acute intracranial hemorrhage, hydrocephalus, or mass effect. 4th ventricle is midline. Bony calvarium intact. Visualized paranasal sinuses and mastoid air cells are clear. Impression: Nonacute senile brain with remote right temporal lobe infarct.
--- NOTE | 2025-06-05 14:05 | XRAY ---
Indication: Fall. Trauma. Multiple contiguous axial images obtained through the cervical spine. Sagittal and coronal reformatted images obtained. Comparison: Cervical radiograph November 03, 2018. Osseous structures remain demineralized. Axial images negative for acute fracture, suspicious bony lesions, or spinal canal stenosis. Mild multilevel degenerative facet hypertrophy, [id number]. Sagittal and coronal reformatted images demonstrates minimal lordotic reversal, positional versus paraspinal spasm. Progressive worsening C5-C6 disc space narrowing with minimal endplate spurring. No acute compression fracture, subluxation, or jumped facet. Normal appearing craniocervical junction. Visualized noncontrasted soft tissues demonstrates mild bilateral carotid calcifications. Lung apices clear. Impression: Negative acute fracture/subluxation. Lordotic reversal, positional versus paraspinal spasm. Chronic findings including osteopenia, C5-C6 degenerative disc disease, and bilateral carotid calcifications.
[2025-06-05] MEDS ORDERED: APRESOLINE 20 MG/ML INJ ONE (14:56)
[2025-06-05] MEDS ORDERED: ROCEPHIN 1 GM / 100 ML NaCl 1 GM/100 ML IVPB IV ONE (14:57)
[2025-06-05] MEDS: APRESOLINE 20 MG/ML INJ IV ONE (15:04)
[2025-06-05] MEDS: ROCEPHIN 1 GM / 100 ML NaCl 1 GM/100 ML IVPB IV SCH (15:16)
[2025-06-05] MEDS ORDERED: TYLENOL EXTRA STRENGTH 500 MG ONE (15:19)
[2025-06-05] MEDS: TYLENOL EXTRA STRENGTH 500 MG PO STA (15:20)
--- NOTE | 2025-06-05 16:28 | PCM.HP ---
<ISRRAEL ALVARADO - Last Filed: 06/05/25 16:23> History of Present Illness - Chief Complaint Chief Complaint: multipule falls/Left arm numbness, dizziness Date: 06/05/25 History of Present Illness: is a 75 year old female with a pmhx of prior cerebrovascular accident, hypertension, hyperlipidemia, type 2 diabetes mellitus, hypothyroidism, GERD, and arthritis, who presented to the emergency department on 06/05/25, after experiencing 2falls earlier in the day. She reports that the first episode occurred when she stood up to use the restroom, at which time she became lightheaded and dizzy, and upon taking a few steps, she fell to the ground. 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 She denies any loss of consciousness or head strike with either fall but does report striking her back. She has since experienced intermittent left arm numbness but denies any other focal neurological symptoms, including slurred speech, word-finding difficulty, vision changes, or weakness. No chest pain, palpitations, or shortness of breath were reported. She denies dysuria or urinary frequency. On arrival to the ED, she was alert, oriented, and hemodynamically stable aside from severe hypertension (BP 225/79 mmHg). She received hydralazine 10 mg IV with partial improvement. She does report that she has not had her HTN meds today. Neurologic exam revealed no focal deficits and intact strength in all extremities. CT head showed no acute intracranial process, but did reveal remote right temporal lobe encephalomalacia consistent with prior infarct. Chest X-ray, bilateral knee, and tibia/fibula X-rays showed no acute findings. Laboratory studies revealed mild leukocytosis (WBC 10.9 ) and mild cholestatic liver enzyme elevation (total bilirubin 2.0 , AST 37 , ALT 39 , alkaline phosphatase 162 ) similar to prior visits. Electrolytes and renal function were normal. Urinalysis demonstrated moderate bacteria without pyuria or nitrites. She received hydralazine and ceftriaxone in ED. Admission for evaluation dizziness, recurrent falls, left arm numbness, and hypertensive urgency. - Review of Systems Constitutional: No Symptoms Eyes: No Symptoms Ears, Nose, & Throat: No Symptoms Respiratory: No Symptoms Cardiac: No Symptoms Abdominal/Gastrointestinal: No Symptoms Genitourinary Symptoms: No Symptoms Musculoskeletal: Other (Left leg pain) Skin: No Symptoms Neurological: Dizziness, Parasthesia (left arm) Psychological: No Symptoms Endocrine: No Symptoms Hematologic/Lymphatic: No Symptoms Immunological/Allergic: No Symptoms Medications & Allergies Home Medications: Home Medication List Atenolol 50 mg [Tenormin 50 mg] 50 mg PO DAILY 11/07/15 [History Confirmed 06/05/25] Metformin HCl 500 mg [Glucophage 500 MG] 500 mg PO BID 11/07/15 [History Confirmed 06/05/25] Aspirin 81 mg PO DAILY 09/05/20 [History Confirmed 06/05/25] Azelastine HCl 1 drop DROPS BID PRN 09/05/20 [History Confirmed 06/05/25] Clopidogrel Bisulfate [PLAVIX Tablet] 75 mg PO DAILY 09/05/20 [History Confirmed 06/05/25] Glimepiride 1.5 mg PO DAILY 09/05/20 [History Confirmed 06/05/25] Losartan Potassium 50 mg [Cozaar 50 MG] 100 mg PO DAILY 09/05/20 [History Confirmed 06/05/25] Naproxen Sodium 550 mg PO BID 09/05/20 [History Confirmed 06/05/25] Cholecalciferol (Vitamin D3) [Vitamin D3] 50 mcg PO DAILY 06/05/25 [History Confirmed 06/05/25] Cyclobenzaprine HCl 5 mg PO HS PRN 06/05/25 [History Confirmed 06/05/25] Ezetimibe 10 mg [Zetia 10 MG] 10 mg PO HS 06/05/25 [History Confirmed 06/05/25] Hydrochlorothiazide 25 mg [hydroDIURIL 25 MG] 25 mg PO DAILY 06/05/25 [History Confirmed 06/05/25] Levothyroxine Sodium 88 Mcg [Synthroid 88 Mcg] 88 mcg PO DAILY 06/05/25 [History Confirmed 06/05/25] Allergies/Adverse Reactions: Allergies Allergy/AdvReac Type Severity Reaction Status Date / Time erythromycin base Allergy Anaphylactic Verified 06/05/25 11:37 Reaction iodine Allergy Anaphylactic Verified 06/05/25 11:37 Reaction procaine [From Novocain] Allergy Anaphylactic Verified 06/05/25 11:37 Reaction azithromycin [From Zithromax] AdvReac Rash Verified 06/05/25 11:37 Penicillins AdvReac Rash Verified 06/05/25 11:37 Sulfa (Sulfonamide AdvReac Rash Verified 06/05/25 11:37 Antibiotics) - Past Medical History Past Medical History: Yes Neurological History: Stroke ENT History: Other Cardiac History: High Cholesterol, Hypertension Respiratory History: No Pertinent History Endocrine Medical History: Diabetes Type II, Hypothyroidism Musculoskelatal History: Arthritis, Fractures GI Medical History: GERD History: No Pertinent History Pyscho-Social History: No Pertinent History Reproductive Disorders: No Pertinent History Comment: broken fibia two years ago / right leg - Past Surgical History Past Surgical History: Yes Neuro Surgical History: No Pertinent History Cardiac History: No Pertinent History Respiratory Surgery: No Pertinent History GI Surgical History: Cholecystectomy Genitourinary Surgical Hx: No Pertinent History Female Surgical History: Section Other Surgical History: tonsils Significant Family History: heart disease - Social History Smoking Status: Never smoker Exposure to second hand smoke: No Alcohol: None Drug Use: none - Social Determinants of Health Will the patient participate in the screening: Declined to provide - Physical Exam Vital Signs: Vital Signs - 24 hr Temp Pulse Resp BP BP Pulse Ox 06/05/25 15:33 97.9 F 77 16 193/82 98 06/05/25 15:27 188/73 06/05/25 14:55 98 06/05/25 14:45 216/84 98 06/05/25 13:01 201/76 06/05/25 13:00 63 12 100 06/05/25 12:50 60 19 87 L 06/05/25 12:40 96 06/05/25 12:32 66 15 98 06/05/25 12:30 98 06/05/25 12:10 63 15 225/79 96 06/05/25 11:42 98 06/05/25 11:40 61 14 208/69 98 06/05/25 11:38 96.8 F 64 18 211/94 98 General Appearance: no apparent distress Neurologic Exam: alert, oriented x 3, cooperative, sensory deficit (left arm) Eye Exam: PERRL/EOMI Ears, Nose, Throat Exam: normal ENT inspection Neck Exam: normal inspection Respiratory Exam: normal breath sounds, lungs clear Cardiovascular Exam: regular rate/rhythm, normal heart sounds Gastrointestinal/Abdomen Exam: soft, normal bowel sounds Pelvic Exam: not done Rectal Exam: deferred Back Exam: normal inspection Extremity Exam: normal inspection Skin Exam: normal color Results - Labs Lab/Micro Results: Lab Results-Last 24 Hours 06/05/25 06/05/25 06/05/25 Range/Units 11:42 11:43 12:05 WBC 10.9 H (3.98-10.04) x10^3/uL RBC 4.16 (3.93-5.22) x10^6/uL Hgb 12.5 (11.2-15.7) g/dL Hct 39.0 (34.1-44.9) % MCV 93.8 (79.4-94.8) fL MCH 30.0 (25.6-32.2) pg MCHC 32.1 L (32.2-35.5) g/dL RDW 13.2 (11.7-14.4) % Plt Count 204 (182-369) x10^3/uL MPV 9.6 (9.4-12.3) fL Gran % 72.3 H (34.0-71.1) % Immature Gran % (Auto) 0.4 (0.001-0.429) % Nucleat RBC Rel Count 0.0 (0.00-0.2) % Eos # (Auto) 0.31 (0.04-0.36) x10^3/uL Immature Gran # (Auto) 0.04 H (0.001-0.031) x10^3u/L Absolute Lymphs (auto) 1.92 (1.18-3.74) x10^3/uL Absolute Monos (auto) 0.70 (0.24-0.86) x10^3/uL Absolute Nucleated RBC 0.00 (0.00-0.012) x10^3u/L Lymphocytes % 17.6 L (19.3-51.7) % Monocytes % 6.4 (4.7-12.5) % Eosinophils % 2.8 (0.7-5.8) % Basophils % 0.5 (0.1-1.2) % Absolute Granulocytes 7.86 H (1.56-6.13) x10^3/uL Basophils # 0.05 (0.01-0.08) x10^3/uL PT (9.4-12.5) SECONDS INR (0.8-3.0) APTT (25.1-36.5) SECONDS Sodium (135-145) mmol/L Potassium (3.5-5.1) mmol/L Chloride (98-107) mmol/L Carbon Dioxide (22-30) mmol/L Anion Gap (5-15) MEQ/L BUN (7-17) mg/dL Creatinine (0.52-1.04) mg/dL Estimated GFR ML/MIN Glucose (74-106) mg/dL Lactic Acid 1.7 (0.4-2.0) Calcium (8.4-10.2) mg/dL Magnesium (1.6-2.3) mg/dL Total Bilirubin (0.2-1.3) mg/dL AST (14-36) U/L ALT (0-35) U/L Alkaline Phosphatase (38-126) U/L Troponin I (0.000-0.033) ng/mL Serum Total Protein (6.3-8.2) g/dL Albumin (3.5-5.0) g/dL Urine Color Dark Yellow A (Yellow) Urine Appearance Clear (Clear) Urine pH 5.0 (4.6-8.0) Ur Specific [place] 1.025 (1.005-1.030) Urine Protein 100 A (Negative) Urine Glucose (UA) 100 A (Negative) mg/dL Urine Ketones Negative (Negative) Urine Blood Negative (Negative) Urine Nitrite Negative (Negative) Urine Bilirubin Negative (Negative) Urine Urobilinogen 1.0 A (0.2) mg/dL Ur Leukocyte Esterase Negative (Negative) U Hyaline Cast (Auto) 3-5 A (0-2) /LPF Urine Microscopic RBC 0-2 (0-5) /HPF Urine Microscopic WBC 0-2 (0-5) /HPF Ur Epithelial Cells Rare (None Seen) /HPF Urine Bacteria Moderate A (None Seen) /HPF Urine Culture Reflexed ORDERED SEPARATELY (NO) Ethyl Alcohol (0-10) mg/dL 06/05/25 06/05/25 06/05/25 Range/Units 12:05 12:05 12:05 WBC (3.98-10.04) x10^3/uL RBC (3.93-5.22) x10^6/uL Hgb (11.2-15.7) g/dL Hct (34.1-44.9) % MCV (79.4-94.8) fL MCH (25.6-32.2) pg MCHC (32.2-35.5) g/dL RDW (11.7-14.4) % Plt Count (182-369) x10^3/uL MPV (9.4-12.3) fL Gran % (34.0-71.1) % Immature Gran % (Auto) (0.001-0.429) % Nucleat RBC Rel Count (0.00-0.2) % Eos # (Auto) (0.04-0.36) x10^3/uL Immature Gran # (Auto) (0.001-0.031) x10^3u/L Absolute Lymphs (auto) (1.18-3.74) x10^3/uL Absolute Monos (auto) (0.24-0.86) x10^3/uL Absolute Nucleated RBC (0.00-0.012) x10^3u/L Lymphocytes % (19.3-51.7) % Monocytes % (4.7-12.5) % Eosinophils % (0.7-5.8) % Basophils % (0.1-1.2) % Absolute Granulocytes (1.56-6.13) x10^3/uL Basophils # (0.01-0.08) x10^3/uL PT 10.8 (9.4-12.5) SECONDS INR 0.96 (0.8-3.0) APTT 22.6 L (25.1-36.5) SECONDS Sodium 136 (135-145) mmol/L Potassium 4.3 (3.5-5.1) mmol/L Chloride 98 (98-107) mmol/L Carbon Dioxide 30 (22-30) mmol/L Anion Gap 12.2 (5-15) MEQ/L BUN 19 H (7-17) mg/dL Creatinine 0.89 (0.52-1.04) mg/dL Estimated GFR 67.6 ML/MIN Glucose 222 H (74-106) mg/dL Lactic Acid (0.4-2.0) Calcium 9.5 (8.4-10.2) mg/dL Magnesium 1.6 (1.6-2.3) mg/dL Total Bilirubin 2.00 H (0.2-1.3) mg/dL AST 37 H (14-36) U/L ALT 39 H (0-35) U/L Alkaline Phosphatase 162 H (38-126) U/L Troponin I < 0.012 (0.000-0.033) ng/mL Serum Total Protein 6.8 (6.3-8.2) g/dL Albumin 4.1 (3.5-5.0) g/dL Urine Color (Yellow) Urine Appearance (Clear) Urine pH (4.6-8.0) Ur Specific [place] (1.005-1.030) Urine Protein (Negative) Urine Glucose (UA) (Negative) mg/dL Urine Ketones (Negative) Urine Blood (Negative) Urine Nitrite (Negative) Urine Bilirubin (Negative) Urine Urobilinogen (0.2) mg/dL Ur Leukocyte Esterase (Negative) U Hyaline Cast (Auto) (0-2) /LPF Urine Microscopic RBC (0-5) /HPF Urine Microscopic WBC (0-5) /HPF Ur Epithelial Cells (None Seen) /HPF Urine Bacteria (None Seen) /HPF Urine Culture Reflexed (NO) Ethyl Alcohol < 10 (0-10) mg/dL 10/14/25 Range/Units 15:14 WBC (3.98-10.04) x10^3/uL RBC (3.93-5.22) x10^6/uL Hgb (11.2-15.7) g/dL Hct (34.1-44.9) % MCV (79.4-94.8) fL MCH (25.6-32.2) pg MCHC (32.2-35.5) g/dL RDW (11.7-14.4) % Plt Count (182-369) x10^3/uL MPV (9.4-12.3) fL Gran % (34.0-71.1) % Immature Gran % (Auto) (0.001-0.429) % Nucleat RBC Rel Count (0.00-0.2) % Eos # (Auto) (0.04-0.36) x10^3/uL Immature Gran # (Auto) (0.001-0.031) x10^3u/L Absolute Lymphs (auto) (1.18-3.74) x10^3/uL Absolute Monos (auto) (0.24-0.86) x10^3/uL Absolute Nucleated RBC (0.00-0.012) x10^3u/L Lymphocytes % (19.3-51.7) % Monocytes % (4.7-12.5) % Eosinophils % (0.7-5.8) % Basophils % (0.1-1.2) % Absolute Granulocytes (1.56-6.13) x10^3/uL Basophils # (0.01-0.08) x10^3/uL PT (9.4-12.5) SECONDS INR (0.8-3.0) APTT (25.1-36.5) SECONDS Sodium (135-145) mmol/L Potassium (3.5-5.1) mmol/L Chloride (98-107) mmol/L Carbon Dioxide (22-30) mmol/L Anion Gap (5-15) MEQ/L BUN (7-17) mg/dL Creatinine (0.52-1.04) mg/dL Estimated GFR ML/MIN Glucose (74-106) mg/dL Lactic Acid (0.4-2.0) Calcium (8.4-10.2) mg/dL Magnesium (1.6-2.3) mg/dL Total Bilirubin (0.2-1.3) mg/dL AST (14-36) U/L ALT (0-35) U/L Alkaline Phosphatase (38-126) U/L Troponin I < 0.012 (0.000-0.033) ng/mL Serum Total Protein (6.3-8.2) g/dL Albumin (3.5-5.0) g/dL Urine Color (Yellow) Urine Appearance (Clear) Urine pH (4.6-8.0) Ur Specific [place] (1.005-1.030) Urine Protein (Negative) Urine Glucose (UA) (Negative) mg/dL Urine Ketones (Negative) Urine Blood (Negative) Urine Nitrite (Negative) Urine Bilirubin (Negative) Urine Urobilinogen (0.2) mg/dL Ur Leukocyte Esterase (Negative) U Hyaline Cast (Auto) (0-2) /LPF Urine Microscopic RBC (0-5) /HPF Urine Microscopic WBC (0-5) /HPF Ur Epithelial Cells (None Seen) /HPF Urine Bacteria (None Seen) /HPF Urine Culture Reflexed (NO) Ethyl Alcohol (0-10) mg/dL - Radiology Impressions Radiology Exams & Impressions: Radiology Procedures Category Date Time Status CERVICAL SPINE WO CONTRAST [CT] Stat Exams 06/05/25 11:40 Completed CHEST 1 VIEW (PORTABLE) Stat Exams 06/05/25 11:[address] ANGIOGRAPHY NECK [CT] Stat Exams 06/05/25 16:03 Ordered CTA HEAD W AND/OR WO CONTRAST [CT] Stat Exams 06/05/25 16:03 Ordered ECHO W/2D AND DOPPLER [US] Stat Exams 06/05/25 16:04 Ordered HEAD WITHOUT CONTRAST [CT] Stat Exams 06/05/25 11:40 Completed KNEE (3 VIEWS) Stat Exams 06/05/25 11:38 Completed KNEE (3 VIEWS) Stat Exams 06/05/25 11:39 Completed LOWER LEG Stat Exams 06/05/25 11:41 Completed MRI BRAIN W/O CONTRAST [MRI] Stat Exams 06/05/25 16:03 Ordered Assessment/Plan (1) Near syncope Current Visit: Yes Status: Acute Assessment & Plan: - positional dizziness and lightheadedness upon standing, raising concern for an orthostatic component, though neurologic cause cannot be excluded given left arm paresthesia. -CT head negative for acute process, prior infarct noted. -Tele -MRI brain and CTA head/neck to evaluate for ischemia or vascular stenosis -Echocardiogram -Orthostatic vitals -Neurology consultation for evaluation of transient left arm numbness and prior stroke. -Neuro checks every 4 hours; fall precautions. -PT/OT evaluation for balance and gait safety. (2) Tingling of left upper extremity Current Visit: Yes Status: Acute Assessment & Plan: -see near syncope for plan Code(s): R20.2 - PARESTHESIA OF SKIN (3) Hypertensive urgency Current Visit: Yes Status: Acute Assessment & Plan: -SBP peaked at 225 mmHg; improved following hydralazine 10 mg IV. No evidence of end-organ damage. -Resume home antihypertensives -PRN IV hydralazine for SBP >180 mmHg. -Avoid rapid BP reduction; gradual goal <160 systolic within 24 hours. -Monitor neurologic status during BP management. Code(s): I16.0 - HYPERTENSIVE URGENCY (4) Fall Current Visit: Yes Status: Acute Assessment & Plan: -CT head showed no acute intracranial process, but did reveal remote right temporal lobe encephalomalacia consistent with prior infarct. - Chest X-ray, bilateral knee, and tibia/fibula X-rays showed no acute findings -PT/OT -See plan for near syncopal episode Code(s): W19.XXXA - UNSPECIFIED FALL, INITIAL ENCOUNTER (5) Transaminitis Current Visit: Yes Status: Acute Assessment & Plan: -Mild cholestatic pattern without symptoms. -CMP -trend -Review medications for hepatotoxicity. -Consider RUQ ultrasound if bilirubin or ALP rises Code(s): R74.01 - ELEVATION OF LEVELS OF LIVER TRANSAMINASE LEVELS (6) DMII (diabetes mellitus, type 2) Current Visit: Yes Status: Acute Assessment & Plan: -ADA diet -SSI -A1c (7) Hypothyroid Current Visit: Yes Status: Acute Assessment & Plan: -Check TSH -Continue levothyroxine- adjust as needed Code(s): E03.9 - HYPOTHYROIDISM, UNSPECIFIED (8) Remote history of stroke Current Visit: Yes Status: Acute Assessment & Plan: -continue plavix, ASA, and Zetia Code(s): Z86.73 - PRSNL HX OF TIA (TIA), AND CEREB INFRC W/O RESID DEFICITS (9) HLD (hyperlipidemia) Current Visit: Yes Status: Acute Assessment & Plan: -continue zetia Code(s): E78.5 - HYPERLIPIDEMIA, UNSPECIFIED (10) Arthritis Current Visit: Yes Status: Acute Assessment & Plan: -continue home meds Code(s): M19.90 - UNSPECIFIED OSTEOARTHRITIS, UNSPECIFIED SITE (11) UTI (urinary tract infection) Current Visit: Yes Status: Acute Qualifiers: Urinary tract infection type: site unspecified Hematuria presence: without hematuria Qualified Code(s): N39.0 - Urinary tract infection, site not specified Assessment & Plan: -treated in ED with ceftriaxone, UA with demonstrated moderate bacteria without pyuria or nitrites. -Patient asymptomatic -Hold further antibiotics- follow culture VTE: Plavix/ASA/SCD PPI: protonix Dispo: 1-2 days Code status: Full Code Plan of care time spent > 40 mins Code(s): N39.0 - URINARY TRACT INFECTION, SITE NOT SPECIFIED Telemedicine Encounter - Telemedicine Encounter Telemedicine Encounter: "The entirety of this encounter was performed via Telemedicine" This visit was performed using real-time audio and video connection between my location and thepatients locationwith the assistance of a surrogateat the patients location. Written or verbal consent was obtained from the patient/guardian to perform this visit usingsynchrAttention Sciencestelemedicine technology. Any patient questions regarding the telemedicine interaction were answered. <SHIVA SENIOR - Last Filed: 06/05/25 19:43> History of Present Illness - Chief Complaint History of Present Illness: is a 75 year old female. - Physical Exam Vital Signs: Vital Signs - 24 hr Temp Pulse Resp BP BP Pulse Ox 06/05/25 17:21 92 H 152/72 06/05/25 15:33 97.9 F 77 16 193/82 98 06/05/25 15:27 188/73 06/05/25 14:55 98 06/05/25 14:45 216/84 98 06/05/25 13:01 201/76 06/05/25 13:00 63 12 100 06/05/25 12:50 60 19 87 L 06/05/25 12:40 96 06/05/25 12:32 66 15 98 06/05/25 12:30 98 06/05/25 12:10 63 15 225/79 96 06/05/25 11:42 98 06/05/25 11:40 61 14 208/69 98 06/05/25 11:38 96.8 F 64 18 211/94 98 Results - Labs Lab/Micro Results: Lab Results-Last 24 Hours 06/05/25 06/05/25 06/05/25 Range/Units 11:42 11:42 11:43 WBC (3.98-10.04) x10^3/uL RBC (3.93-5.22) x10^6/uL Hgb (11.2-15.7) g/dL Hct (34.1-44.9) % MCV (79.4-94.8) fL MCH (25.6-32.2) pg MCHC (32.2-35.5) g/dL RDW (11.7-14.4) % Plt Count (182-369) x10^3/uL MPV (9.4-12.3) fL Gran % (34.0-71.1) % Immature Gran % (Auto) (0.001-0.429) % Nucleat RBC Rel Count (0.00-0.2) % Eos # (Auto) (0.04-0.36) x10^3/uL Immature Gran # (Auto) (0.001-0.031) x10^3u/L Absolute Lymphs (auto) (1.18-3.74) x10^3/uL Absolute Monos (auto) (0.24-0.86) x10^3/uL Absolute Nucleated RBC (0.00-0.012) x10^3u/L Lymphocytes % (19.3-51.7) % Monocytes % (4.7-12.5) % Eosinophils % (0.7-5.8) % Basophils % (0.1-1.2) % Absolute Granulocytes (1.56-6.13) x10^3/uL Basophils # (0.01-0.08) x10^3/uL PT (9.4-12.5) SECONDS INR (0.8-3.0) APTT (25.1-36.5) SECONDS Sodium (135-145) mmol/L Potassium (3.5-5.1) mmol/L Chloride (98-107) mmol/L Carbon Dioxide (22-30) mmol/L Anion Gap (5-15) MEQ/L BUN (7-17) mg/dL Creatinine (0.52-1.04) mg/dL Estimated GFR ML/MIN Glucose (74-106) mg/dL Lactic Acid 1.7 (0.4-2.0) Calcium (8.4-10.2) mg/dL Magnesium (1.6-2.3) mg/dL Total Bilirubin (0.2-1.3) mg/dL AST (14-36) U/L ALT (0-35) U/L Alkaline Phosphatase (38-126) U/L Troponin I (0.000-0.033) ng/mL Serum Total Protein (6.3-8.2) g/dL Albumin (3.5-5.0) g/dL TSH 3rd Generation 4.781 H (0.470-4.680) mIU/L Urine Color Dark Yellow A (Yellow) Urine Appearance Clear (Clear) Urine pH 5.0 (4.6-8.0) Ur Specific [place] 1.025 (1.005-1.030) Urine Protein 100 A (Negative) Urine Glucose (UA) 100 A (Negative) mg/dL Urine Ketones Negative (Negative) Urine Blood Negative (Negative) Urine Nitrite Negative (Negative) Urine Bilirubin Negative (Negative) Urine Urobilinogen 1.0 A (0.2) mg/dL Ur Leukocyte Esterase Negative (Negative) U Hyaline Cast (Auto) 3-5 A (0-2) /LPF Urine Microscopic RBC 0-2 (0-5) /HPF Urine Microscopic WBC 0-2 (0-5) /HPF Ur Epithelial Cells Rare (None Seen) /HPF Urine Bacteria Moderate A (None Seen) /HPF Urine Culture Reflexed ORDERED SEPARATELY (NO) Ethyl Alcohol (0-10) mg/dL 06/05/25 06/05/25 06/05/25 Range/Units 12:05 12:05 12:05 WBC 10.9 H (3.98-10.04) x10^3/uL RBC 4.16 (3.93-5.22) x10^6/uL Hgb 12.5 (11.2-15.7) g/dL Hct 39.0 (34.1-44.9) % MCV 93.8 (79.4-94.8) fL MCH 30.0 (25.6-32.2) pg MCHC 32.1 L (32.2-35.5) g/dL RDW 13.2 (11.7-14.4) % Plt Count 204 (182-369) x10^3/uL MPV 9.6 (9.4-12.3) fL Gran % 72.3 H (34.0-71.1) % Immature Gran % (Auto) 0.4 (0.001-0.429) % Nucleat RBC Rel Count 0.0 (0.00-0.2) % Eos # (Auto) 0.31 (0.04-0.36) x10^3/uL Immature Gran # (Auto) 0.04 H (0.001-0.031) x10^3u/L Absolute Lymphs (auto) 1.92 (1.18-3.74) x10^3/uL Absolute Monos (auto) 0.70 (0.24-0.86) x10^3/uL Absolute Nucleated RBC 0.00 (0.00-0.012) x10^3u/L Lymphocytes % 17.6 L (19.3-51.7) % Monocytes % 6.4 (4.7-12.5) % Eosinophils % 2.8 (0.7-5.8) % Basophils % 0.5 (0.1-1.2) % Absolute Granulocytes 7.86 H (1.56-6.13) x10^3/uL Basophils # 0.05 (0.01-0.08) x10^3/uL PT 10.8 (9.4-12.5) SECONDS INR 0.96 (0.8-3.0) APTT 22.6 L (25.1-36.5) SECONDS Sodium 136 (135-145) mmol/L Potassium 4.3 (3.5-5.1) mmol/L Chloride 98 (98-107) mmol/L Carbon Dioxide 30 (22-30) mmol/L Anion Gap 12.2 (5-15) MEQ/L BUN 19 H (7-17) mg/dL Creatinine 0.89 (0.52-1.04) mg/dL Estimated GFR 67.6 ML/MIN Glucose 222 H (74-106) mg/dL Lactic Acid (0.4-2.0) Calcium 9.5 (8.4-10.2) mg/dL Magnesium 1.6 (1.6-2.3) mg/dL Total Bilirubin 2.00 H (0.2-1.3) mg/dL AST 37 H (14-36) U/L ALT 39 H (0-35) U/L Alkaline Phosphatase 162 H (38-126) U/L Troponin I (0.000-0.033) ng/mL Serum Total Protein 6.8 (6.3-8.2) g/dL Albumin 4.1 (3.5-5.0) g/dL TSH 3rd Generation (0.470-4.680) mIU/L Urine Color (Yellow) Urine Appearance (Clear) Urine pH (4.6-8.0) Ur Specific [place] (1.005-1.030) Urine Protein (Negative) Urine Glucose (UA) (Negative) mg/dL Urine Ketones (Negative) Urine Blood (Negative) Urine Nitrite (Negative) Urine Bilirubin (Negative) Urine Urobilinogen (0.2) mg/dL Ur Leukocyte Esterase (Negative) U Hyaline Cast (Auto) (0-2) /LPF Urine Microscopic RBC (0-5) /HPF Urine Microscopic WBC (0-5) /HPF Ur Epithelial Cells (None Seen) /HPF Urine Bacteria (None Seen) /HPF Urine Culture Reflexed (NO) Ethyl Alcohol < 10 (0-10) mg/dL 06/05/25 06/05/25 Range/Units 12:05 15:14 WBC (3.98-10.04) x10^3/uL RBC (3.93-5.22) x10^6/uL Hgb (11.2-15.7) g/dL Hct (34.1-44.9) % MCV (79.4-94.8) fL MCH (25.6-32.2) pg MCHC (32.2-35.5) g/dL RDW (11.7-14.4) % Plt Count (182-369) x10^3/uL MPV (9.4-12.3) fL Gran % (34.0-71.1) % Immature Gran % (Auto) (0.001-0.429) % Nucleat RBC Rel Count (0.00-0.2) % Eos # (Auto) (0.04-0.36) x10^3/uL Immature Gran # (Auto) (0.001-0.031) x10^3u/L Absolute Lymphs (auto) (1.18-3.74) x10^3/uL Absolute Monos (auto) (0.24-0.86) x10^3/uL Absolute Nucleated RBC (0.00-0.012) x10^3u/L Lymphocytes % (19.3-51.7) % Monocytes % (4.7-12.5) % Eosinophils % (0.7-5.8) % Basophils % (0.1-1.2) % Absolute Granulocytes (1.56-6.13) x10^3/uL Basophils # (0.01-0.08) x10^3/uL PT (9.4-12.5) SECONDS INR (0.8-3.0) APTT (25.1-36.5) SECONDS Sodium (135-145) mmol/L Potassium (3.5-5.1) mmol/L Chloride (98-107) mmol/L Carbon Dioxide (22-30) mmol/L Anion Gap (5-15) MEQ/L BUN (7-17) mg/dL Creatinine (0.52-1.04) mg/dL Estimated GFR ML/MIN Glucose (74-106) mg/dL Lactic Acid (0.4-2.0) Calcium (8.4-10.2) mg/dL Magnesium (1.6-2.3) mg/dL Total Bilirubin (0.2-1.3) mg/dL AST (14-36) U/L ALT (0-35) U/L Alkaline Phosphatase (38-126) U/L Troponin I < 0.012 < 0.012 (0.000-0.033) ng/mL Serum Total Protein (6.3-8.2) g/dL Albumin (3.5-5.0) g/dL TSH 3rd Generation (0.470-4.680) mIU/L Urine Color (Yellow) Urine Appearance (Clear) Urine pH (4.6-8.0) Ur Specific [place] (1.005-1.030) Urine Protein (Negative) Urine Glucose (UA) (Negative) mg/dL Urine Ketones (Negative) Urine Blood (Negative) Urine Nitrite (Negative) Urine Bilirubin (Negative) Urine Urobilinogen (0.2) mg/dL Ur Leukocyte Esterase (Negative) U Hyaline Cast (Auto) (0-2) /LPF Urine Microscopic RBC (0-5) /HPF Urine Microscopic WBC (0-5) /HPF Ur Epithelial Cells (None Seen) /HPF Urine Bacteria (None Seen) /HPF Urine Culture Reflexed (NO) Ethyl Alcohol (0-10) mg/dL - Radiology Impressions Radiology Exams & Impressions: Radiology Procedures Category Date Time Status CAROTID BILATERAL [US] Stat Exams 06/06/25 07:00 Ordered CERVICAL SPINE WO CONTRAST [CT] Stat Exams 06/05/25 11:40 Completed CHEST 1 VIEW (PORTABLE) Stat Exams 06/05/25 11:38 Completed ECHO W/2D AND DOPPLER [US] Stat Exams 06/06/25 07:00 Ordered HEAD WITHOUT CONTRAST [CT] Stat Exams 06/05/25 11:40 Completed KNEE (3 VIEWS) Stat Exams 06/05/25 11:38 Completed KNEE (3 VIEWS) Stat Exams 06/05/25 11:39 Completed LOWER LEG Stat Exams 06/05/25 11:41 Completed MRI BRAIN W/O CONTRAST [MRI] Stat Exams 06/06/25 07:00 Ordered - Other Procedures and Tests Respiratory Therapy 06/05/25 16:44 EKG REPEAT IN AM Telemedicine Encounter - Telemedicine Encounter Telemedicine Encounter: "The entirety of this encounter was performed via Telemedicine" This visit was performed using real-time audio and video connection between my location and thepatients locationwith the assistance of a surrogateat the patients location. Written or verbal consent was obtained from the patient/guardian to perform this visit using[employer] technology. Any patient questions regarding the telemedicine interaction were answered. CAREN Encounter - CAREN Encounter Attestation CAREN Encounter Attestation: "MALI Banda andhavediscussed pertinent aspects of their care with Isrrael Galeas agree with the history, physical exam (any modifications based on my personal exam will be noted below), assessment, and plan as outlined in original note. Please see immediately below for my summary of findings and additional assessment and plan along with any meaningful corrections/explanations to the Subjective/Objective portions of the CAREN note will be noted." My portion of the encounter took place via telemedicine. -Patient presenting with dizziness, multiple falls and left arm numbness that started this morning. History of prior stroke, will order MRI to rule out a possible acute stroke. Patient reports compliance with aspirin and plavix. ?syncope, will monitor on tele and check orthostatics.
[2025-06-05] MEDS ORDERED: Zofran 4 MG/2 ML VIAL IV PRN (16:44)
[2025-06-05] MEDS ORDERED: APRESOLINE 20 MG/ML INJ IV PRN (16:44)
[2025-06-05] MEDS ORDERED: Cyclobenzaprine 10 MG PO PRN (16:55)
[2025-06-05] MEDS ORDERED: MEDICATION INTERVENTION MC SCH (17:00)
[2025-06-05] MEDS ORDERED: NON-FORMULARY ITEM (Azelastine Hcl [Azelastine Hcl] 6 ML Drops) DROPS SCH (17:00)
[2025-06-05] MEDS: ECOTRIN 81 MG PO SCH (17:15)
[2025-06-05] MEDS: Protonix 40MG Tablet PO SCH (17:15)
[2025-06-05] MEDS: Cozaar 50 MG PO SCH (17:15)
[2025-06-05] MEDS: PLAVIX Tablet PO SCH (17:15)
[2025-06-05] MEDS: hydroDIURIL 25 MG PO SCH (17:15)
[2025-06-05] MEDS: SYNTHROID 88 MCG PO SCH (17:16)
[2025-06-05] MEDS: TENORMIN 50 MG PO SCH (17:21)
[2025-06-05] MEDS: Zetia 10 MG PO SCH (21:01)
[2025-06-05] MEDS: HUMALOG SQ PRN (21:01)
[2025-06-06] MEDS: TYLENOL 325 MG PO PRN (01:24)
[2025-06-06] MEDS: Lidoderm Patch 5% TOP ONE (04:28)
[2025-06-06 04:56] LABS: BASOPHIL % 0.4 % (0.1-1.2); Basophil (Absolute #) 0.04 x10^3/uL (0.01-0.08); Eosinophil (Absolute #) 0.28 x10^3/uL (0.04-0.36); Hematocrit 37.0 % (34.1-44.9); Hemoglobin 11.8 g/dL (11.2-15.7); IMMATURE GRAN # 0.05 x10^3u/L (0.001-0.031); IMMATURE GRAN % 0.5 % (0.001-0.429); Lymphocyte (Absolute #) 2.85 x10^3/uL (1.18-3.74); Mean Corpuscular Hemoglobin 30.1 pg (25.6-32.2); Mean Corpuscular Hgb Concent. 31.9 g/dL (32.2-35.5); Monocyte (Absolute #) 0.96 x10^3/uL (0.24-0.86); NUCLEATED RBC # 0.00 x10^3u/L (0.00-0.012); NUCLEATED RBC % 0.0 % (0.00-0.2); Platelet Count 209 x10^3/uL (182-369); Red Blood Count 3.92 x10^6/uL (3.93-5.22); White Blood Count 10.4 x10^3/uL (3.98-10.04)
[2025-06-06 05:03] LABS: Calcium 9.3 mg/dL (8.4-10.2); Carbon Dioxide 29.0 mmol/L (22-30); Creatinine 1 1.08 mg/dL (0.52-1.04); EST GLOMERULAR FILTRATION RATE 53.6 ML/MIN; Glucose 150.0 mg/dL (74-106); Potassium 3.7 mmol/L (3.5-5.1); SGOT/AST 28.0 U/L (14-36); SGPT/ALT 32.0 U/L (0-35); Total Protein 6.5 g/dL (6.3-8.2)
--- NOTE | 2025-06-06 08:51 | PCM.CONS ---
History of Present Illness - Reason for Consult Chief Complaint: multipule falls/Left arm numbness, dizziness Date of Consultation Date: 06/06/25 Reason for Consult: Stroke Requesting Provider: SHIVA DUDLEY MD Consulting Provider: EL NAZARIO MD History of Present Illness: [facility] Consultation Reason for Consultation: Stroke Chief complaint: Fall LKW: 06/05/2025 at 9 AM HPI: This is a 75-year-old right-handed white female with past medical history of hypertension, diabetes, CVA about 4 years ago (right temporal head region) without any residual deficits presented to the hospital because of falls. According to patient, yesterday morning at around 9 AM she fell and could not get up. Prior to fall, she was dizzy and with the fall she hit her head on the dresser. She asked her for the help and with the help of walker, she went to the restroom and fell again because of the wheels of the walker gave way. She did not pass out. In the ER, reportedly her blood pressure was high with systolic more than 200. She was initially treated for suspected UTI. She had elevation of total bilirubin and alkaline phosphatase with total bilirubin of 1.60 and ALP of 144. Labs reviewed from today which showed WBC of 10.4 hemoglobin 11.8 hematocrit 37.0 platelet count of 209. Sodium 136 potassium 3.7 chloride 91 bicarb 29. BUN 20 creatinine 1.08. She got a CAT scan which was negative for acute process but it did show old right temporal stroke. Echocardiogram, carotid Doppler and MRI brain is pending. She was not a candidate for thrombolytic because symptom onset is more than 4- 1/2 hours. : Med Hx, Surgical Hx, Family Hx, Social hx reviewed Labs, Vitals, imaging personally reviewed. Review of Systems: 12-point review of systems is negative unless mentioned in HPI Physical Exam: (done with the help of RN) Constitutional: Gen: NAD, pleasant, well nourished HEENT: NC/AT MAGGI, Neurologic Exam: Higher Functions: AA&Ox3; Tracks; Regards Follows simple and complex commands Communicates fluently and appropriately Language : Comprehension is intact; no aphasia; no dysarthria; repetition is intact; naming is normal; CN II : Visual elkins are full; CN III, IV, : EOMI; pursuit is smooth; no nystagmus CN V : Facial sensation is full and symmetric CN VII : Facial movement is full and symmetric CN VIII : hearing intact BL CN IX, X : unable to assess CN XI : SCM 5/5 BL CN XII : Tongue protrudes midline Sensory : intact to soft touch Motor : Strength 5/5 UE and LE BL, 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 Level of consciousness (LOC): 0=alert;1=arousable by minor stimulation;2=obtunded or needs strong stimulation to attend;3=unresponsive or reflex responses only (0) 1b. LOC Questions: 0=answers both;1=answers one;2=answers neither (0) 1c. LOC Commands: 0=performs both tasks;1=performs one task;2=performs neither task (0) 2. Best Gaze: 0=normal;1=partial gaze palsy;2=forced deviation or total gaze paresis (0) 3. Visual: 0=normal;1=partial hemianopia;2=complete hemianopia;3=blind (0) 4. Facial palsy: 0=normal;1=minor paresis;2=partial paralysis;3=complete paralysis FOR 5 AND 6 BELOW: 0=normal;1=drifts but maintains in air;2=unable to maintain in air;3=moves but unable to lift against gravity;4=no movement (1)0 (_)1 (_)2 (_)3 (_)4 (_)NA 5a. Motor arm-left (0)0 (_)1 (_)2 (_)3 (_)4 (_)NA 5b. Motor arm-right (0)0 (_)1 (_)2 (_)3 (_)4 (_)NA 6a. Motor leg-left (0)0 (_)1 (_)2 (_)3 (_)4 (_)NA 6ba. Motor leg-right (1) 7. Limb ataxia:0=absent;1=unilateral;2=bilateral; NA=unable to test (0) 8. Sensory: 0=normal;1=mild-moderate loss;2-severe or total loss (0) 9. Best language: 0=normal;1=mild-moderate aphasia, some deficits apparent but able to communicate;2=severe aphasia, fragmentary expression only, unable to communicate well;3=global aphasia, mute and no comprehension (0) 10. Dysarthria: 0=normal;1=mild-moderate, slurs some words;2=severe, speech mostly unintelligible; NA=unable to test (e.g.,intubation) (0) 11. Extinction/Inattention: 0=normal;1=visual,tactile,auditory or other extinction to bilateral simultaneous stimulation, but no severe neglect;2=answers neither Assessment: 75-year-old female presented to the hospital with repeated falls yesterday. 1. Fall: Patient fell twice yesterday. Prior to falling, patient felt dizzy and fell on the ground and was having trouble getting up. She asked her for help and then with the help of walker, she went to the restroom and fell again. She did not pass out. Denies lateralizing weakness prior to fall. 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 Had a stroke in the past. CAT scan negative for acute process Carotid Doppler echocardiogram and MRI brain is pending. Possible new stroke versus stroke recrudescence versus metabolic etiology vs hypertensive urgency She is on aspirin and Plavix along with Zetia which she takes as her home medications 2. Elevated T. bili and alk phos Plan: Stroke workup is pending Resume home antiplatelet therapy The above anti-platelet recommendation may change pending the stroke workup such as echo and MRI Stroke labs Stroke education Risk factor modification PT OT ST DVT prophylaxis-CULLEN/SCDs Communicated plan with Dr. Dudley Thank you for allowing us to participate in this patients care. Please call [facility] with questions, concerns, or change in patients neurological status. This consult was performed via secure telemedicine 2 way audio/visual platform, patient consent obtained. This note was partially generated using a Dictation system, and there may be some incorrect words, spellings, and punctuation that were not noted in checking the note before saving. For clarifications, please call [facility]. Medications & Allergies Home Medications: Home Medication List Atenolol 50 mg [Tenormin 50 mg] 50 mg PO DAILY 11/07/15 [History Confirmed 06/05/25] Metformin HCl 500 mg [Glucophage 500 MG] 500 mg PO BID 11/07/15 [History Confirmed 06/05/25] Aspirin 81 mg PO DAILY 09/05/20 [History Confirmed 06/05/25] Azelastine HCl 1 drop DROPS BID PRN 09/05/20 [History Confirmed 06/05/25] Clopidogrel Bisulfate [PLAVIX Tablet] 75 mg PO DAILY 09/05/20 [History Confirmed 06/05/25] Glimepiride 1.5 mg PO DAILY 09/05/20 [History Confirmed 06/05/25] Losartan Potassium 50 mg [Cozaar 50 MG] 100 mg PO DAILY 09/05/20 [History Confirmed 06/05/25] Naproxen Sodium 550 mg PO BID 09/05/20 [History Confirmed 06/05/25] Cholecalciferol (Vitamin D3) [Vitamin D3] 50 mcg PO DAILY 06/05/25 [History Confirmed 06/05/25] Cyclobenzaprine HCl 5 mg PO HS PRN 06/05/25 [History Confirmed 06/05/25] Ezetimibe 10 mg [Zetia 10 MG] 10 mg PO HS 06/05/25 [History Confirmed 06/05/25] Hydrochlorothiazide 25 mg [hydroDIURIL 25 MG] 25 mg PO DAILY 06/05/25 [History Confirmed 06/05/25] Levothyroxine Sodium 88 Mcg [Synthroid 88 Mcg] 88 mcg PO DAILY 06/05/25 [History Confirmed 06/05/25] Allergies/Adverse Reactions: Allergies Allergy/AdvReac Type Severity Reaction Status Date / Time erythromycin base Allergy Anaphylactic Verified 06/05/25 11:37 Reaction iodine Allergy Anaphylactic Verified 06/05/25 11:37 Reaction procaine [From Novocain] Allergy Anaphylactic Verified 06/05/25 11:37 Reaction azithromycin [From Zithromax] AdvReac Rash Verified 06/05/25 11:37 Penicillins AdvReac Rash Verified 06/05/25 11:37 Sulfa (Sulfonamide AdvReac Rash Verified 06/05/25 11:37 Antibiotics) - Past Medical History Past Medical History: Yes Neurological History: Stroke ENT History: Other Cardiac History: High Cholesterol, Hypertension Respiratory History: No Pertinent History Endocrine Medical History: Diabetes Type II, Hypothyroidism Musculoskelatal History: Arthritis, Fractures GI Medical History: GERD History: No Pertinent History Pyscho-Social History: No Pertinent History Reproductive Disorders: No Pertinent History Comment: broken fibia two years ago / right leg - Past Surgical History Past Surgical History: Yes Neuro Surgical History: No Pertinent History Cardiac History: No Pertinent History Respiratory Surgery: No Pertinent History GI Surgical History: Cholecystectomy Genitourinary Surgical Hx: No Pertinent History Female Surgical History: Section Other Surgical History: tonsils Significant Family History: heart disease - Social History Smoking Status: Never smoker Exposure to second hand smoke: No Alcohol: None Drug Use: none - Social Determinants of Health Will the patient participate in the screening: Declined to provide - Physical Exam Vital Signs: Vital Signs - 24 hr Temp Pulse Resp BP BP Pulse Ox 06/06/25 07:14 98.2 F 67 16 131/60 98 06/06/25 04:00 98.3 F 69 12 134/62 95 06/05/25 23:48 98.4 F 70 17 187/82 96 06/05/25 19:51 98.4 F 80 19 179/72 98 06/05/25 17:21 92 H 152/72 06/05/25 15:33 97.9 F 77 16 193/82 98 06/05/25 15:27 188/73 06/05/25 14:55 98 06/05/25 14:45 216/84 98 06/05/25 13:01 201/76 06/05/25 13:00 63 12 100 06/05/25 12:50 60 19 87 L 06/05/25 12:40 96 06/05/25 12:32 66 15 98 06/05/25 12:30 98 06/05/25 12:10 63 15 225/79 96 06/05/25 11:42 98 06/05/25 11:40 61 14 208/69 98 06/05/25 11:38 96.8 F 64 18 211/94 98 Results - Labs Lab/Micro Results: Lab Results-Last 24 Hours 10/14/25 10/14/25 10/14/25 Range/Units 11:42 11:42 11:43 WBC (3.98-10.04) x10^3/uL RBC (3.93-5.22) x10^6/uL Hgb (11.2-15.7) g/dL Hct (34.1-44.9) % MCV (79.4-94.8) fL MCH (25.6-32.2) pg MCHC (32.2-35.5) g/dL RDW (11.7-14.4) % Plt Count (182-369) x10^3/uL MPV (9.4-12.3) fL Gran % (34.0-71.1) % Immature Gran % (Auto) (0.001-0.429) % Nucleat RBC Rel Count (0.00-0.2) % Eos # (Auto) (0.04-0.36) x10^3/uL Immature Gran # (Auto) (0.001-0.031) x10^3u/L Absolute Lymphs (auto) (1.18-3.74) x10^3/uL Absolute Monos (auto) (0.24-0.86) x10^3/uL Absolute Nucleated RBC (0.00-0.012) x10^3u/L Lymphocytes % (19.3-51.7) % Monocytes % (4.7-12.5) % Eosinophils % (0.7-5.8) % Basophils % (0.1-1.2) % Absolute Granulocytes (1.56-6.13) x10^3/uL Basophils # (0.01-0.08) x10^3/uL PT (9.4-12.5) SECONDS INR (0.8-3.0) APTT (25.1-36.5) SECONDS Sodium (135-145) mmol/L Potassium (3.5-5.1) mmol/L Chloride (98-107) mmol/L Carbon Dioxide (22-30) mmol/L Anion Gap (5-15) MEQ/L BUN (7-17) mg/dL Creatinine (0.52-1.04) mg/dL Estimated GFR ML/MIN Glucose (74-106) mg/dL POC Glucometer (74 to 106) mg/dL Hemoglobin A1c (4.5-6.0) % Lactic Acid 1.7 (0.4-2.0) Calcium (8.4-10.2) mg/dL Magnesium (1.6-2.3) mg/dL Total Bilirubin (0.2-1.3) mg/dL AST (14-36) U/L ALT (0-35) U/L Alkaline Phosphatase (38-126) U/L Troponin I (0.000-0.033) ng/mL Serum Total Protein (6.3-8.2) g/dL Albumin (3.5-5.0) g/dL TSH 3rd Generation 4.781 H (0.470-4.680) mIU/L Urine Color Dark Yellow A (Yellow) Urine Appearance Clear (Clear) Urine pH 5.0 (4.6-8.0) Ur Specific [place] 1.025 (1.005-1.030) Urine Protein 100 A (Negative) Urine Glucose (UA) 100 A (Negative) mg/dL Urine Ketones Negative (Negative) Urine Blood Negative (Negative) Urine Nitrite Negative (Negative) Urine Bilirubin Negative (Negative) Urine Urobilinogen 1.0 A (0.2) mg/dL Ur Leukocyte Esterase Negative (Negative) U Hyaline Cast (Auto) 3-5 A (0-2) /LPF Urine Microscopic RBC 0-2 (0-5) /HPF Urine Microscopic WBC 0-2 (0-5) /HPF Ur Epithelial Cells Rare (None Seen) /HPF Urine Bacteria Moderate A (None Seen) /HPF Urine Culture Reflexed ORDERED SEPARATELY (NO) Ethyl Alcohol (0-10) mg/dL 06/05/25 06/05/25 06/05/25 Range/Units 12:05 12:05 12:05 WBC 10.9 H (3.98-10.04) x10^3/uL RBC 4.16 (3.93-5.22) x10^6/uL Hgb 12.5 (11.2-15.7) g/dL Hct 39.0 (34.1-44.9) % MCV 93.8 (79.4-94.8) fL MCH 30.0 (25.6-32.2) pg MCHC 32.1 L (32.2-35.5) g/dL RDW 13.2 (11.7-14.4) % Plt Count 204 (182-369) x10^3/uL MPV 9.6 (9.4-12.3) fL Gran % 72.3 H (34.0-71.1) % Immature Gran % (Auto) 0.4 (0.001-0.429) % Nucleat RBC Rel Count 0.0 (0.00-0.2) % Eos # (Auto) 0.31 (0.04-0.36) x10^3/uL Immature Gran # (Auto) 0.04 H (0.001-0.031) x10^3u/L Absolute Lymphs (auto) 1.92 (1.18-3.74) x10^3/uL Absolute Monos (auto) 0.70 (0.24-0.86) x10^3/uL Absolute Nucleated RBC 0.00 (0.00-0.012) x10^3u/L Lymphocytes % 17.6 L (19.3-51.7) % Monocytes % 6.4 (4.7-12.5) % Eosinophils % 2.8 (0.7-5.8) % Basophils % 0.5 (0.1-1.2) % Absolute Granulocytes 7.86 H (1.56-6.13) x10^3/uL Basophils # 0.05 (0.01-0.08) x10^3/uL PT 10.8 (9.4-12.5) SECONDS INR 0.96 (0.8-3.0) APTT 22.6 L (25.1-36.5) SECONDS Sodium 136 (135-145) mmol/L Potassium 4.3 (3.5-5.1) mmol/L Chloride 98 (98-107) mmol/L Carbon Dioxide 30 (22-30) mmol/L Anion Gap 12.2 (5-15) MEQ/L BUN 19 H (7-17) mg/dL Creatinine 0.89 (0.52-1.04) mg/dL Estimated GFR 67.6 ML/MIN Glucose 222 H (74-106) mg/dL POC Glucometer (74 to 106) mg/dL Hemoglobin A1c (4.5-6.0) % Lactic Acid (0.4-2.0) Calcium 9.5 (8.4-10.2) mg/dL Magnesium 1.6 (1.6-2.3) mg/dL Total Bilirubin 2.00 H (0.2-1.3) mg/dL AST 37 H (14-36) U/L ALT 39 H (0-35) U/L Alkaline Phosphatase 162 H (38-126) U/L Troponin I (0.000-0.033) ng/mL Serum Total Protein 6.8 (6.3-8.2) g/dL Albumin 4.1 (3.5-5.0) g/dL TSH 3rd Generation (0.470-4.680) mIU/L Urine Color (Yellow) Urine Appearance (Clear) Urine pH (4.6-8.0) Ur Specific [place] (1.005-1.030) Urine Protein (Negative) Urine Glucose (UA) (Negative) mg/dL Urine Ketones (Negative) Urine Blood (Negative) Urine Nitrite (Negative) Urine Bilirubin (Negative) Urine Urobilinogen (0.2) mg/dL Ur Leukocyte Esterase (Negative) U Hyaline Cast (Auto) (0-2) /LPF Urine Microscopic RBC (0-5) /HPF Urine Microscopic WBC (0-5) /HPF Ur Epithelial Cells (None Seen) /HPF Urine Bacteria (None Seen) /HPF Urine Culture Reflexed (NO) Ethyl Alcohol < 10 (0-10) mg/dL 06/05/25 06/05/25 06/05/25 Range/Units 12:05 12:05 15:14 WBC (3.98-10.04) x10^3/uL RBC (3.93-5.22) x10^6/uL Hgb (11.2-15.7) g/dL Hct (34.1-44.9) % MCV (79.4-94.8) fL MCH (25.6-32.2) pg MCHC (32.2-35.5) g/dL RDW (11.7-14.4) % Plt Count (182-369) x10^3/uL MPV (9.4-12.3) fL Gran % (34.0-71.1) % Immature Gran % (Auto) (0.001-0.429) % Nucleat RBC Rel Count (0.00-0.2) % Eos # (Auto) (0.04-0.36) x10^3/uL Immature Gran # (Auto) (0.001-0.031) x10^3u/L Absolute Lymphs (auto) (1.18-3.74) x10^3/uL Absolute Monos (auto) (0.24-0.86) x10^3/uL Absolute Nucleated RBC (0.00-0.012) x10^3u/L Lymphocytes % (19.3-51.7) % Monocytes % (4.7-12.5) % Eosinophils % (0.7-5.8) % Basophils % (0.1-1.2) % Absolute Granulocytes (1.56-6.13) x10^3/uL Basophils # (0.01-0.08) x10^3/uL PT (9.4-12.5) SECONDS INR (0.8-3.0) APTT (25.1-36.5) SECONDS Sodium (135-145) mmol/L Potassium (3.5-5.1) mmol/L Chloride (98-107) mmol/L Carbon Dioxide (22-30) mmol/L Anion Gap (5-15) MEQ/L BUN (7-17) mg/dL Creatinine (0.52-1.04) mg/dL Estimated GFR ML/MIN Glucose (74-106) mg/dL POC Glucometer (74 to 106) mg/dL Hemoglobin A1c 7.09 H (4.5-6.0) % Lactic Acid (0.4-2.0) Calcium (8.4-10.2) mg/dL Magnesium (1.6-2.3) mg/dL Total Bilirubin (0.2-1.3) mg/dL AST (14-36) U/L ALT (0-35) U/L Alkaline Phosphatase (38-126) U/L Troponin I < 0.012 < 0.012 (0.000-0.033) ng/mL Serum Total Protein (6.3-8.2) g/dL Albumin (3.5-5.0) g/dL TSH 3rd Generation (0.470-4.680) mIU/L Urine Color (Yellow) Urine Appearance (Clear) Urine pH (4.6-8.0) Ur Specific [place] (1.005-1.030) Urine Protein (Negative) Urine Glucose (UA) (Negative) mg/dL Urine Ketones (Negative) Urine Blood (Negative) Urine Nitrite (Negative) Urine Bilirubin (Negative) Urine Urobilinogen (0.2) mg/dL Ur Leukocyte Esterase (Negative) U Hyaline Cast (Auto) (0-2) /LPF Urine Microscopic RBC (0-5) /HPF Urine Microscopic WBC (0-5) /HPF Ur Epithelial Cells (None Seen) /HPF Urine Bacteria (None Seen) /HPF Urine Culture Reflexed (NO) Ethyl Alcohol (0-10) mg/dL 06/05/25 06/06/25 06/06/25 Range/Units 20:58 04:35 04:35 WBC 10.4 H (3.98-10.04) x10^3/uL RBC 3.92 L (3.93-5.22) x10^6/uL Hgb 11.8 (11.2-15.7) g/dL Hct 37.0 (34.1-44.9) % MCV 94.4 (79.4-94.8) fL MCH 30.1 (25.6-32.2) pg MCHC 31.9 L (32.2-35.5) g/dL RDW 13.6 (11.7-14.4) % Plt Count 209 (182-369) x10^3/uL MPV 9.9 (9.4-12.3) fL Gran % 59.6 (34.0-71.1) % Immature Gran % (Auto) 0.5 H (0.001-0.429) % Nucleat RBC Rel Count 0.0 (0.00-0.2) % Eos # (Auto) 0.28 (0.04-0.36) x10^3/uL Immature Gran # (Auto) 0.05 H (0.001-0.031) x10^3u/L Absolute Lymphs (auto) 2.85 (1.18-3.74) x10^3/uL Absolute Monos (auto) 0.96 H (0.24-0.86) x10^3/uL Absolute Nucleated RBC 0.00 (0.00-0.012) x10^3u/L Lymphocytes % 27.5 (19.3-51.7) % Monocytes % 9.3 (4.7-12.5) % Eosinophils % 2.7 (0.7-5.8) % Basophils % 0.4 (0.1-1.2) % Absolute Granulocytes 6.18 H (1.56-6.13) x10^3/uL Basophils # 0.04 (0.01-0.08) x10^3/uL PT (9.4-12.5) SECONDS INR (0.8-3.0) APTT (25.1-36.5) SECONDS Sodium 136 (135-145) mmol/L Potassium 3.7 (3.5-5.1) mmol/L Chloride 99 (98-107) mmol/L Carbon Dioxide 29 (22-30) mmol/L Anion Gap 11.9 (5-15) MEQ/L BUN 21 H (7-17) mg/dL Creatinine 1.08 H (0.52-1.04) mg/dL Estimated GFR 53.6 ML/MIN Glucose 150 H (74-106) mg/dL POC Glucometer 329 H (74 to 106) mg/dL Hemoglobin A1c (4.5-6.0) % Lactic Acid (0.4-2.0) Calcium 9.3 (8.4-10.2) mg/dL Magnesium (1.6-2.3) mg/dL Total Bilirubin 1.60 H (0.2-1.3) mg/dL AST 28 (14-36) U/L ALT 32 (0-35) U/L Alkaline Phosphatase 144 H (38-126) U/L Troponin I (0.000-0.033) ng/mL Serum Total Protein 6.5 (6.3-8.2) g/dL Albumin 3.8 (3.5-5.0) g/dL TSH 3rd Generation (0.470-4.680) mIU/L Urine Color (Yellow) Urine Appearance (Clear) Urine pH (4.6-8.0) Ur Specific [place] (1.005-1.030) Urine Protein (Negative) Urine Glucose (UA) (Negative) mg/dL Urine Ketones (Negative) Urine Blood (Negative) Urine Nitrite (Negative) Urine Bilirubin (Negative) Urine Urobilinogen (0.2) mg/dL Ur Leukocyte Esterase (Negative) U Hyaline Cast (Auto) (0-2) /LPF Urine Microscopic RBC (0-5) /HPF Urine Microscopic WBC (0-5) /HPF Ur Epithelial Cells (None Seen) /HPF Urine Bacteria (None Seen) /HPF Urine Culture Reflexed (NO) Ethyl Alcohol (0-10) mg/dL 06/06/25 Range/Units 07:30 WBC (3.98-10.04) x10^3/uL RBC (3.93-5.22) x10^6/uL Hgb (11.2-15.7) g/dL Hct (34.1-44.9) % MCV (79.4-94.8) fL MCH (25.6-32.2) pg MCHC (32.2-35.5) g/dL RDW (11.7-14.4) % Plt Count (182-369) x10^3/uL MPV (9.4-12.3) fL Gran % (34.0-71.1) % Immature Gran % (Auto) (0.001-0.429) % Nucleat RBC Rel Count (0.00-0.2) % Eos # (Auto) (0.04-0.36) x10^3/uL Immature Gran # (Auto) (0.001-0.031) x10^3u/L Absolute Lymphs (auto) (1.18-3.74) x10^3/uL Absolute Monos (auto) (0.24-0.86) x10^3/uL Absolute Nucleated RBC (0.00-0.012) x10^3u/L Lymphocytes % (19.3-51.7) % Monocytes % (4.7-12.5) % Eosinophils % (0.7-5.8) % Basophils % (0.1-1.2) % Absolute Granulocytes (1.56-6.13) x10^3/uL Basophils # (0.01-0.08) x10^3/uL PT (9.4-12.5) SECONDS INR (0.8-3.0) APTT (25.1-36.5) SECONDS Sodium (135-145) mmol/L Potassium (3.5-5.1) mmol/L Chloride (98-107) mmol/L Carbon Dioxide (22-30) mmol/L Anion Gap (5-15) MEQ/L BUN (7-17) mg/dL Creatinine (0.52-1.04) mg/dL Estimated GFR ML/MIN Glucose (74-106) mg/dL POC Glucometer 177 H (74 to 106) mg/dL Hemoglobin A1c (4.5-6.0) % Lactic Acid (0.4-2.0) Calcium (8.4-10.2) mg/dL Magnesium (1.6-2.3) mg/dL Total Bilirubin (0.2-1.3) mg/dL AST (14-36) U/L ALT (0-35) U/L Alkaline Phosphatase (38-126) U/L Troponin I (0.000-0.033) ng/mL Serum Total Protein (6.3-8.2) g/dL Albumin (3.5-5.0) g/dL TSH 3rd Generation (0.470-4.680) mIU/L Urine Color (Yellow) Urine Appearance (Clear) Urine pH (4.6-8.0) Ur Specific [place] (1.005-1.030) Urine Protein (Negative) Urine Glucose (UA) (Negative) mg/dL Urine Ketones (Negative) Urine Blood (Negative) Urine Nitrite (Negative) Urine Bilirubin (Negative) Urine Urobilinogen (0.2) mg/dL Ur Leukocyte Esterase (Negative) U Hyaline Cast (Auto) (0-2) /LPF Urine Microscopic RBC (0-5) /HPF Urine Microscopic WBC (0-5) /HPF Ur Epithelial Cells (None Seen) /HPF Urine Bacteria (None Seen) /HPF Urine Culture Reflexed (NO) Ethyl Alcohol (0-10) mg/dL Microbiology 06/05/25 11:43 Urine Culture - Preliminary Catherized NO GROWTH TO DATE Accuchecks Date 06/06/25 Time 07:31 - Radiology Impressions Radiology Exams & Impressions: Radiology Procedures Category Date Time Status CAROTID BILATERAL [US] Stat Exams 06/06/25 07:00 Ordered CERVICAL SPINE WO CONTRAST [CT] Stat Exams 06/05/25 11:40 Completed CHEST 1 VIEW (PORTABLE) Stat Exams 06/05/25 11:38 Completed ECHO W/2D AND DOPPLER [US] Stat Exams 06/06/25 07:00 Ordered HEAD WITHOUT CONTRAST [CT] Stat Exams 06/05/25 11:40 Completed KNEE (3 VIEWS) Stat Exams 06/05/25 11:38 Completed KNEE (3 VIEWS) Stat Exams 06/05/25 11:39 Completed LOWER LEG Stat Exams 06/05/25 11:41 Completed MRI BRAIN W/O CONTRAST [MRI] Stat Exams 06/06/25 07:00 Ordered
[2025-06-06] MEDS ORDERED: ROCEPHIN 1 GM / 100 ML NaCl 1 GM/100 ML IVPB IV SCH (10:00)
--- NOTE | 2025-06-06 11:03 | XRAY ---
Indication: Dizziness. Two-dimensional sonogram and color Doppler imaging carotid arteries of the neck performed. Comparison: None Examination right carotid circulation demonstrates minimal calcified plaquing carotid bulb. Widely patent common carotid, internal carotid, and external carotid arteries. PSV CCA is 76 cm/sec. PSV ICA is 109 cm/sec. ICA/CCA ratio is 1.4. Normal antegrade vertebral artery flow. Examination left carotid circulation demonstrates mild heterogeneous plaquing carotid bulb slightly extending into origin/proximal internal carotid artery. Widely patent common carotid and external carotid arteries. PSV CCA is 54 cm/sec. PSV ICA is 80 cm/sec. ICA/CCA ratio is 1.5. Normal antegrade vertebral artery flow. Impression: Minimal/mild scattered arteriosclerotic disease bilaterally as detailed. Velocity measurements and ratios are negative for hemodynamically significant flow-limiting stenosis.
--- NOTE | 2025-06-06 16:06 | XRAY ---
Indication: Left arm numbness. Dizziness. Sagittal, coronal, and axial MRI brain performed without contrast using T1, T2, FLAIR, diffusion, and ADC sequences. Comparison: None Age-appropriate global atrophy and mild periventricular degenerative microischemia signal bilaterally. Lesser degenerative micro ischemia signal seen brainstem. Right frontal lobe demonstrates small focus old infarct with surrounding gliosis. Diffusion images demonstrates 11 x 7 mm focus restricted signal right thalamus favoring acute ischemia. No acute intracranial hemorrhage, hydrocephalus, or mass effect. 4th ventricle is midline. 7/8 cranial nerve complex bilaterally symmetric. Normal flow void signal within the major intracerebral circulation. Normal appearing craniocervical junction and sella turcica. Paranasal sinuses are clear. Impression: 1. Small 11 x 7 mm focus acute ischemia right thalamus. No acute hemorrhage/mass effect. 2. Atrophy, degenerative microischemia, and remote right temporal lobe infarct.
--- NOTE | 2025-06-06 17:20 | PCM.NOTE ---
Date and Time: 06/06/25 1715 Subjective Assessment: Ms. Villarreal is a 75-year-old female with a history of prior cerebrovascular accident, hypertension, hyperlipidemia, type 2 diabetes mellitus, hypothyroidism, gastroesophageal reflux disease, and arthritis, who presented to the emergency department on 06/05/25 after experiencing two falls earlier in the day. The first occurred upon standing to use the restroom when she became lightheaded and dizzy, and the second when her walker rolled forward, causing her to lose balance. She denied loss of consciousness or head strike but reported striking her back. Since then, she has experienced intermittent left arm numbness without other focal neurological symptoms. On arrival, she was alert and oriented, hemodynamically stable aside from severe hypertension (BP 225/79 mmHg), which improved with IV hydralazine and is now well controlled with resumption of her home antihypertensive medications. Neurologic examination revealed no focal weakness or deficits. CT head showed no acute intracranial process but did demonstrate remote right temporal lobe encephalomalacia consistent with prior infarct. MRI brain revealed a small 11 7 mm focus of acute ischemia in the right thalamus without hemorrhage or mass effect, along with atrophy, chronic microvascular ischemic changes, and remote temporal lobe infarct. Carotid ultrasound demonstrated mild to minimal scattered atherosclerotic disease bilaterally with no hemodynamically significant stenosis. Laboratory studies were overall unremarkable, with total bilirubin now 1.6 mg/dL (improved from 2.0), AST and ALT within normal limits, and alkaline phosphatase 144 U/L (reduced from 162). Electrolytes and renal function remain normal, and urine culture was negative despite moderate bacteria on urinalysis. Neurology reviewed the imaging and recommended a CTA of the head and neck, for which the patient will be premedicated due to her iodine contrast allergy, and advised continuation of Plavix, aspirin, and Zetia. They also recommended an outpatient CASSI (not available at this facility) and a 30-day cardiac event monitor to be placed prior to discharge with cardiology follow-up. Occupational therapy evaluated the patient and recommended outpatient therapy, which will be arranged prior to discharge. Possible discharge tomorrow is anticipated pending CTA results and neurology follow-up. 06/06/25: Met with patient bedside. Endorses continued numbness and weakness in her LUE. PT/OT has evaluated patient with recommendations for OP PT/OT. Neurology consulted on MRI findings as stated above. Plan for potential discharge tomorrow with OP follow up with cardiology and neurology pending CTA head/neck and further recommendations from neurology. - Review of Systems Constitutional: No Symptoms Eyes: No Symptoms Ears, Nose, & Throat: No Symptoms Respiratory: No Symptoms Cardiac: No Symptoms Abdominal/Gastrointestinal: No Symptoms Genitourinary Symptoms: No Symptoms Musculoskeletal: No Symptoms Skin: No Symptoms Neurological: Parasthesia (LUE) Psychological: No Symptoms Endocrine: No Symptoms Hematologic/Lymphatic: No Symptoms Immunological/Allergic: No Symptoms Objective Exam General Appearance: no apparent distress Neurologic Exam: alert, oriented x 3, cooperative, other (Weakness to LUE 3/5 photoflash powder mixer strength) Skin Exam: normal color Eye Exam: PERRL Ears, Nose, Throat Exam: normal ENT inspection Neck Exam: normal inspection Respiratory Exam: normal breath sounds, lungs clear Cardiovascular Exam: regular rate/rhythm, normal heart sounds Gastrointestinal/Abdomen Exam: soft, normal bowel sounds Extremity Exam: normal inspection Back Exam: normal inspection Pelvic Exam: deferred Rectal Exam: deferred Objective Data Vital Signs: Vital Signs - 24 hr Temp Pulse Resp BP BP Pulse Ox 06/06/25 16:00 98.5 F 68 16 132/60 95 06/06/25 11:26 98.5 F 70 16 135/60 97 06/06/25 09:01 72 143/64 06/06/25 07:14 98.2 F 67 16 131/60 98 06/06/25 04:00 98.3 F 69 12 134/62 95 06/05/25 23:48 98.4 F 70 17 187/82 96 06/05/25 19:51 98.4 F 80 19 179/72 98 06/05/25 17:21 92 H 152/72 Pain Assessment - Last Documented Pain Intensity 3 Pain Scale Used 0-10 Pain Scale Intake and Output: Intake & Output 06/04/25 06/05/25 06/06/25 06/07/25 11:59 11:59 11:59 11:59 Intake Total 780 480 Output Total 845 Balance -65 480 Weight 88.4 kg 88.4 kg Lab Results: Lab Results-Last 24 Hours 06/05/25 06/05/25 06/05/25 Range/Units 11:42 12:05 20:58 WBC (3.98-10.04) x10^3/uL RBC (3.93-5.22) x10^6/uL Hgb (11.2-15.7) g/dL Hct (34.1-44.9) % MCV (79.4-94.8) fL MCH (25.6-32.2) pg MCHC (32.2-35.5) g/dL RDW (11.7-14.4) % Plt Count (182-369) x10^3/uL MPV (9.4-12.3) fL Gran % (34.0-71.1) % Immature Gran % (Auto) (0.001-0.429) % Nucleat RBC Rel Count (0.00-0.2) % Eos # (Auto) (0.04-0.36) x10^3/uL Immature Gran # (Auto) (0.001-0.031) x10^3u/L Absolute Lymphs (auto) (1.18-3.74) x10^3/uL Absolute Monos (auto) (0.24-0.86) x10^3/uL Absolute Nucleated RBC (0.00-0.012) x10^3u/L Lymphocytes % (19.3-51.7) % Monocytes % (4.7-12.5) % Eosinophils % (0.7-5.8) % Basophils % (0.1-1.2) % Absolute Granulocytes (1.56-6.13) x10^3/uL Basophils # (0.01-0.08) x10^3/uL Sodium (135-145) mmol/L Potassium (3.5-5.1) mmol/L Chloride (98-107) mmol/L Carbon Dioxide (22-30) mmol/L Anion Gap (5-15) MEQ/L BUN (7-17) mg/dL Creatinine (0.52-1.04) mg/dL Estimated GFR ML/MIN Glucose (74-106) mg/dL POC Glucometer 329 H (74 to 106) mg/dL Hemoglobin A1c 7.09 H (4.5-6.0) % Calcium (8.4-10.2) mg/dL Total Bilirubin (0.2-1.3) mg/dL AST (14-36) U/L ALT (0-35) U/L Alkaline Phosphatase (38-126) U/L Serum Total Protein (6.3-8.2) g/dL Albumin (3.5-5.0) g/dL TSH 3rd Generation 4.781 H (0.470-4.680) mIU/L 06/06/25 06/06/25 06/06/25 Range/Units 04:35 04:35 07:30 WBC 10.4 H (3.98-10.04) x10^3/uL RBC 3.92 L (3.93-5.22) x10^6/uL Hgb 11.8 (11.2-15.7) g/dL Hct 37.0 (34.1-44.9) % MCV 94.4 (79.4-94.8) fL MCH 30.1 (25.6-32.2) pg MCHC 31.9 L (32.2-35.5) g/dL RDW 13.6 (11.7-14.4) % Plt Count 209 (182-369) x10^3/uL MPV 9.9 (9.4-12.3) fL Gran % 59.6 (34.0-71.1) % Immature Gran % (Auto) 0.5 H (0.001-0.429) % Nucleat RBC Rel Count 0.0 (0.00-0.2) % Eos # (Auto) 0.28 (0.04-0.36) x10^3/uL Immature Gran # (Auto) 0.05 H (0.001-0.031) x10^3u/L Absolute Lymphs (auto) 2.85 (1.18-3.74) x10^3/uL Absolute Monos (auto) 0.96 H (0.24-0.86) x10^3/uL Absolute Nucleated RBC 0.00 (0.00-0.012) x10^3u/L Lymphocytes % 27.5 (19.3-51.7) % Monocytes % 9.3 (4.7-12.5) % Eosinophils % 2.7 (0.7-5.8) % Basophils % 0.4 (0.1-1.2) % Absolute Granulocytes 6.18 H (1.56-6.13) x10^3/uL Basophils # 0.04 (0.01-0.08) x10^3/uL Sodium 136 (135-145) mmol/L Potassium 3.7 (3.5-5.1) mmol/L Chloride 99 (98-107) mmol/L Carbon Dioxide 29 (22-30) mmol/L Anion Gap 11.9 (5-15) MEQ/L BUN 21 H (7-17) mg/dL Creatinine 1.08 H (0.52-1.04) mg/dL Estimated GFR 53.6 ML/MIN Glucose 150 H (74-106) mg/dL POC Glucometer 177 H (74 to 106) mg/dL Hemoglobin A1c (4.5-6.0) % Calcium 9.3 (8.4-10.2) mg/dL Total Bilirubin 1.60 H (0.2-1.3) mg/dL AST 28 (14-36) U/L ALT 32 (0-35) U/L Alkaline Phosphatase 144 H (38-126) U/L Serum Total Protein 6.5 (6.3-8.2) g/dL Albumin 3.8 (3.5-5.0) g/dL TSH 3rd Generation (0.470-4.680) mIU/L 06/06/25 06/06/25 Range/Units 11:33 16:23 WBC (3.98-10.04) x10^3/uL RBC (3.93-5.22) x10^6/uL Hgb (11.2-15.7) g/dL Hct (34.1-44.9) % MCV (79.4-94.8) fL MCH (25.6-32.2) pg MCHC (32.2-35.5) g/dL RDW (11.7-14.4) % Plt Count (182-369) x10^3/uL MPV (9.4-12.3) fL Gran % (34.0-71.1) % Immature Gran % (Auto) (0.001-0.429) % Nucleat RBC Rel Count (0.00-0.2) % Eos # (Auto) (0.04-0.36) x10^3/uL Immature Gran # (Auto) (0.001-0.031) x10^3u/L Absolute Lymphs (auto) (1.18-3.74) x10^3/uL Absolute Monos (auto) (0.24-0.86) x10^3/uL Absolute Nucleated RBC (0.00-0.012) x10^3u/L Lymphocytes % (19.3-51.7) % Monocytes % (4.7-12.5) % Eosinophils % (0.7-5.8) % Basophils % (0.1-1.2) % Absolute Granulocytes (1.56-6.13) x10^3/uL Basophils # (0.01-0.08) x10^3/uL Sodium (135-145) mmol/L Potassium (3.5-5.1) mmol/L Chloride (98-107) mmol/L Carbon Dioxide (22-30) mmol/L Anion Gap (5-15) MEQ/L BUN (7-17) mg/dL Creatinine (0.52-1.04) mg/dL Estimated GFR ML/MIN Glucose (74-106) mg/dL POC Glucometer 275 H 249 H (74 to 106) mg/dL Hemoglobin A1c (4.5-6.0) % Calcium (8.4-10.2) mg/dL Total Bilirubin (0.2-1.3) mg/dL AST (14-36) U/L ALT (0-35) U/L Alkaline Phosphatase (38-126) U/L Serum Total Protein (6.3-8.2) g/dL Albumin (3.5-5.0) g/dL TSH 3rd Generation (0.470-4.680) mIU/L Radiology Exams: Radiology Procedures Category Date Time Status CAROTID BILATERAL [US] Stat Exams 06/06/25 07:00 Completed CERVICAL SPINE WO CONTRAST [CT] Stat Exams 06/05/25 11:40 Completed CHEST 1 VIEW (PORTABLE) Stat Exams 06/05/25 11:[address] ANGIOGRAPHY NECK [CT] Routine Exams 06/07/25 09:00 Ordered CTA HEAD W AND/OR WO CONTRAST [CT] Routine Exams 06/07/25 09:00 Ordered ECHO W/2D AND DOPPLER [US] Stat Exams 06/06/25 07:00 Taken HEAD WITHOUT CONTRAST [CT] Stat Exams 06/05/25 11:40 Completed KNEE (3 VIEWS) Stat Exams 06/05/25 11:38 Completed KNEE (3 VIEWS) Stat Exams 06/05/25 11:39 Completed LOWER LEG Stat Exams 06/05/25 11:41 Completed MRI BRAIN W/O CONTRAST [MRI] Stat Exams 06/06/25 07:00 Completed Medications: Medications Generic Name Dose Route Start Last Admin Trade Name Brennanq PRN Reason Stop Dose Admin Acetaminophen 650 mg 06/05/25 16:44 06/06/25 14:56 Acetaminophen 325 Mg Tablet PO 07/05/25 16:43 650 mg Q4H PRN PRN Administration PAIN, FEVER, HEADACHE Aspirin 81 mg 06/05/25 17:00 06/06/25 09:00 Aspirin 81 Mg Tablet.Ec PO 07/05/25 16:59 81 mg DAILY MARCELA Administration Atenolol 50 mg 06/05/25 17:00 06/06/25 09:01 Atenolol 50 Mg Tablet PO 07/05/25 16:59 50 mg DAILY MARCELA Administration Clopidogrel Bisulfate 75 mg 06/05/25 17:00 06/06/25 09:00 Clopidogrel Bisulfate 75 Mg Tablet PO 07/05/25 16:59 75 mg DAILY MARCELA Administration Cyclobenzaprine HCl 5 mg 06/05/25 16:55 Cyclobenzaprine Hcl 10 Mg Tablet PO 07/05/25 16:54 HS PRN PRN INSOMNIA Diphenhydramine HCl 50 mg 06/07/25 08:00 Diphenhydramine Hcl 50 Mg/Ml Vial IV 06/07/25 08:01 0800 MARCELA Ezetimibe 10 mg 06/05/25 22:00 06/05/25 21:01 Ezetimibe 10 Mg Tab PO 07/05/25 21:59 10 mg HS MARCELA Administration Hydrochlorothiazide 25 mg 06/05/25 17:00 06/06/25 09:03 Hydrochlorothiazide 25 Mg Tablet PO 07/05/25 16:59 25 mg DAILY MARCELA Administration Insulin Human Lispro 0 unit 06/05/25 16:44 06/06/25 16:35 Insulin Lispro 1 Unit SQ 07/05/25 16:43 5 unit UD PRN Administration HYPERGLYCEMIA Levothyroxine Sodium 88 mcg 06/05/25 17:00 06/06/25 09:04 Levothyroxine Sodium 88 Mcg Tablet PO 07/05/25 16:59 88 mcg DAILY MARCELA Administration Losartan Potassium 100 mg 06/05/25 17:00 06/06/25 09:00 Losartan Potassium 50 Mg Tablet PO 07/05/25 16:59 100 mg DAILY MARCELA Administration Miscellaneous Information 1 each 06/05/25 17:00 Medication Intervention 1 Each Each 07/05/25 16:59 .RN TO CHECK MARCELA Ondansetron HCl 4 mg 06/05/25 16:44 Ondansetron Hcl 4 Mg/2 Ml Vial IV 07/05/25 16:43 Q6H PRN PRN NAUSEA/VOMITING Pantoprazole Sodium 40 mg 06/05/25 17:00 06/06/25 09:03 Protonix (Pantoprazole) 40 Mg Tablet PO 07/05/25 16:59 40 mg DAILY MARCELA Administration Prednisone 50 mg 06/06/25 18:00 Prednisone 20 Mg Tablet PO 06/07/25 08:01 0200,0800,1800 MARCELA Discontinued Medications Generic Name Dose Route Start Last Admin Trade Name Freq PRN Reason Stop Dose Admin Acetaminophen 1,000 mg 06/05/25 15:10 06/05/25 15:20 Acetaminophen 500 Mg Tablet PO 06/05/25 15:11 1,000 mg STAT STA Administration Acetaminophen Confirm 06/05/25 15:19 Acetaminophen 500 Mg Tablet Administered 06/05/25 15:20 Dose 1,000 mg .ROUTE .STK-MED ONE Hydralazine HCl 10 mg 06/05/25 14:51 06/05/25 15:04 Hydralazine Hcl 20 Mg/Ml Vial IV 06/05/25 14:52 10 mg STAT ONE Administration Hydralazine HCl Confirm 06/05/25 14:56 Hydralazine Hcl 20 Mg/Ml Vial Administered 06/05/25 14:57 Dose 20 mg .ROUTE .STK-MED ONE Hydralazine HCl 5 mg 06/05/25 16:44 Hydralazine Hcl 20 Mg/Ml Vial IV 07/05/25 16:43 Q4HPRN PRN HYPERTENSION Ceftriaxone Sodium 1 gm in 100 mls @ 200 mls/hr 06/06/25 10:00 06/05/25 15:16 Rocephin 1 Gm / 100 Ml Nacl IV 07/06/25 09:59 200 mls/hr Q24H10 MARCELA 200 mls/hr Administration Ceftriaxone Sodium Confirm 06/05/25 14:57 Rocephin 1 Gm / 100 Ml Nacl Administered 06/05/25 14:58 Dose 1 gm in 100 mls @ ud IV .STK-MED ONE Ceftriaxone Sodium 1 gm in 100 mls @ 200 mls/hr 06/06/25 10:00 Rocephin 1 Gm / 100 Ml Nacl IV 07/06/25 09:59 Q24H10 MARCELA Lidocaine 1 patch 06/06/25 04:30 06/06/25 04:28 Lidocaine Hcl 1 Patch Patch TOP 06/06/25 04:31 1 patch ONCE ONE Administration Multi-Disciplinary Progress Notes: Multi-Disciplinary Progress Notes 06/06/25 12:21 Radiology Note by PEE KEVIN TRANSTHORACIC ECHOCARDIOGRAM 06/06/2025 1. Normal biventricular wall thickness, chamber size, and systolic function. 2. Estimated left ventricular ejection fraction is 65%. 3. Normal diastolic function profile. 4. Mild aortic sclerosis without stenosis. Valves are otherwise structurally normal without evidence of a vegetation. 5. Doppler: No significant valvular regurgtiation. 6. Unable to estimate PA systolic pressure. 7. Normal right atrial pressure. 8. No pericardial effusion. 9. Impression: No obvious cardiac source of emboli. Pee Kevin MD [facility] Initialized on 06/06/25 12:21 - END OF NOTE 06/06/25 10:57 Case Management Note by Charmaine De Paz [employer] ORDERED VIA [facility] - PER ORDER AND PT'S CHOICE OF PROVIDER. THEY WILL DELIVER TO PT'S HOME. Initialized on 06/06/25 10:57 - END OF NOTE Assessment/Plan (1) Acute stroke due to ischemia Current Visit: Yes Status: Acute Assessment & Plan: - positional dizziness and lightheadedness upon standing, raising concern for an orthostatic component, though neurologic cause cannot be excluded given left arm paresthesia. -CT head negative for acute process, prior infarct noted. -Tele -MRI brain and CTA head/neck to evaluate for ischemia or vascular stenosis -Echocardiogram -Orthostatic vitals -Neurology consultation for evaluation of transient left arm numbness and prior stroke. -Neuro checks every 4 hours; fall precautions. -PT/OT evaluation for balance and gait safety. 06/06: -MRI findings revealed a small 11 7 mm focus of acute ischemia in the right thalamus without hemorrhage or mass effect, along with atrophy, chronic microvascular ischemic changes, and remote temporal lobe infarct. -Carotid ultrasound demonstrated mild to minimal scattered atherosclerotic disease bilaterally with no hemodynamically significant stenosis. -Neurology consulted - agree with plan- continue ASA/Plavix/Zetia- patient will need CASSI as OP and 30 day event monitor placed on discharge with cardiology/neurology follow up - Will get CTA head/neck- patient will need pre- medicated due to allergy per protocol - Prednisone 50mg at 15hours, 7hours, and 1 hour prior to exam at 9 a.m . Benadryl 50mg 1 hour prior to exams. Nursing notified and pharmacy has scheduled premedication (2) Tingling of left upper extremity Current Visit: Yes Status: Acute Assessment & Plan: -see near syncope for plan Code(s): R20.2 - PARESTHESIA OF SKIN (3) Hypertensive urgency Current Visit: Yes Status: Acute Assessment & Plan: -SBP peaked at 225 mmHg; improved following hydralazine 10 mg IV. No evidence of end-organ damage. -Resume home antihypertensives -PRN IV hydralazine for SBP >180 mmHg. -Avoid rapid BP reduction; gradual goal <160 systolic within 24 hours. -Monitor neurologic status during BP management. 06/06: - BP now stable with home medications Code(s): I16.0 - HYPERTENSIVE URGENCY (4) Fall Current Visit: Yes Status: Acute Assessment & Plan: -CT head showed no acute intracranial process, but did reveal remote right temporal lobe encephalomalacia consistent with prior infarct. - Chest X-ray, bilateral knee, and tibia/fibula X-rays showed no acute findings -PT/OT -See plan for near syncopal episode 06/06: -PT/OT have evaluated patient with recs for continued OP therapy Code(s): W19.XXXA - UNSPECIFIED FALL, INITIAL ENCOUNTER (5) Transaminitis Current Visit: Yes Status: Acute Assessment & Plan: -Mild cholestatic pattern without symptoms. -CMP -trend -Review medications for hepatotoxicity. -Consider RUQ ultrasound if bilirubin or ALP rises 06/06: -Reviewed -Tbili down-trending now at 1.60 AST and ALT WNL, ALP down-trending Code(s): R74.01 - ELEVATION OF LEVELS OF LIVER TRANSAMINASE LEVELS (6) DMII (diabetes mellitus, type 2) Current Visit: Yes Status: Acute Assessment & Plan: -ADA diet -SSI -A1c (7) Hypothyroid Current Visit: Yes Status: Acute Assessment & Plan: -Check TSH -Continue levothyroxine- adjust as needed Code(s): E03.9 - HYPOTHYROIDISM, UNSPECIFIED (8) Remote history of stroke Current Visit: Yes Status: Acute Assessment & Plan: -continue plavix, ASA, and Zetia Code(s): Z86.73 - PRSNL HX OF TIA (TIA), AND CEREB INFRC W/O RESID DEFICITS (9) HLD (hyperlipidemia) Current Visit: Yes Status: Acute Assessment & Plan: -continue zetia Code(s): E78.5 - HYPERLIPIDEMIA, UNSPECIFIED (10) Arthritis Current Visit: Yes Status: Acute Assessment & Plan: -continue home meds Code(s): M19.90 - UNSPECIFIED OSTEOARTHRITIS, UNSPECIFIED SITE (11) UTI (urinary tract infection) Current Visit: Yes Status: Acute Qualifiers: Urinary tract infection type: site unspecified Hematuria presence: without hematuria Qualified Code(s): N39.0 - Urinary tract infection, site not specified Assessment & Plan: -treated in ED with ceftriaxone, UA with demonstrated moderate bacteria without pyuria or nitrites. -Patient asymptomatic -Hold further antibiotics- follow culture 06/06: -Negative Ucult - no symptoms VTE: Plavix/ASA/SCD PPI: protonix Dispo: 1-2 days Code status: Full Code Plan of care time spent > 40 mins Code(s): I63.9 - CEREBRAL INFARCTION, UNSPECIFIED (2) Near syncope Current Visit: Yes Status: Acute (3) Tingling of left upper extremity Current Visit: Yes Status: Acute Code(s): R20.2 - PARESTHESIA OF SKIN (4) Hypertensive urgency Current Visit: Yes Status: Acute Code(s): I16.0 - HYPERTENSIVE URGENCY (5) Fall Current Visit: Yes Status: Acute Code(s): W19.XXXA - UNSPECIFIED FALL, INITIAL ENCOUNTER (6) Transaminitis Current Visit: Yes Status: Acute Code(s): R74.01 - ELEVATION OF LEVELS OF LIVER TRANSAMINASE LEVELS (7) DMII (diabetes mellitus, type 2) Current Visit: Yes Status: Acute (8) Hypothyroid Current Visit: Yes Status: Acute Code(s): E03.9 - HYPOTHYROIDISM, UNSPECIFIED (9) Remote history of stroke Current Visit: Yes Status: Acute Code(s): Z86.73 - PRSNL HX OF TIA (TIA), AND CEREB INFRC W/O RESID DEFICITS (10) HLD (hyperlipidemia) Current Visit: Yes Status: Acute Code(s): E78.5 - HYPERLIPIDEMIA, UNSPECIFIED (11) Arthritis Current Visit: Yes Status: Acute Code(s): M19.90 - UNSPECIFIED OSTEOARTHRITIS, UNSPECIFIED SITE (12) UTI (urinary tract infection) Current Visit: Yes Status: Acute Qualifiers: Urinary tract infection type: site unspecified Hematuria presence: without hematuria Qualified Code(s): N39.0 - Urinary tract infection, site not specified Code(s): N39.0 - URINARY TRACT INFECTION, SITE NOT SPECIFIED
[2025-06-06] MEDS: DELTASONE 20 MG PO SCH (17:41)
[2025-06-07 04:59] LABS: BASOPHIL % 0.2 % (0.1-1.2); Basophil (Absolute #) 0.02 x10^3/uL (0.01-0.08); Eosinophil (Absolute #) 0 x10^3/uL (0.04-0.36); Hematocrit 37.1 % (34.1-44.9); Hemoglobin 12.0 g/dL (11.2-15.7); IMMATURE GRAN # 0.06 x10^3u/L (0.001-0.031); IMMATURE GRAN % 0.5 % (0.001-0.429); Lymphocyte (Absolute #) 1.01 x10^3/uL (1.18-3.74); Mean Corpuscular Hemoglobin 30.2 pg (25.6-32.2); Mean Corpuscular Hgb Concent. 32.3 g/dL (32.2-35.5); Monocyte (Absolute #) 0.11 x10^3/uL (0.24-0.86); NUCLEATED RBC # 0.00 x10^3u/L (0.00-0.012); NUCLEATED RBC % 0.0 % (0.00-0.2); Platelet Count 222 x10^3/uL (182-369); Red Blood Count 3.98 x10^6/uL (3.93-5.22); White Blood Count 11.6 x10^3/uL (3.98-10.04)
[2025-06-07 05:12] LABS: Calcium 9.3 mg/dL (8.4-10.2); Carbon Dioxide 26.0 mmol/L (22-30); Creatinine 1 1.11 mg/dL (0.52-1.04); EST GLOMERULAR FILTRATION RATE 51.8 ML/MIN; Glucose 333.0 mg/dL (74-106); Potassium 4.0 mmol/L (3.5-5.1); SGOT/AST 24.0 U/L (14-36); SGPT/ALT 31.0 U/L (0-35); Total Protein 6.7 g/dL (6.3-8.2)
[2025-06-07] MEDS: HUMALOG SQ PRN (08:21)
[2025-06-07] MEDS: BENADRYL 50 MG/ML IV SCH (08:22)
--- NOTE | 2025-06-07 09:29 | PCM.NOTE ---
Date and Time: 06/07/25928 Subjective Assessment: Patient reports persistent left hand weakness. No new symptoms including new focal neurologic symptoms. HPI: This is a 75-year-old right-handed white female with past medical history of hypertension, diabetes, CVA about 4 years ago (right temporal head region) without any residual deficits presented to the hospital because of falls. According to patient, yesterday morning at around 9 AM she fell and could not get up. Prior to fall, she was dizzy and with the fall she hit her head on the dresser. She asked her for the help and with the help of walker, she went to the restroom and fell again because of the wheels of the walker gave way. She did not pass out. In the ER, reportedly her blood pressure was high with systolic more than 200. She was initially treated for suspected UTI. She had elevation of total bilirubin and alkaline phosphatase with total bilirubin of 1.60 and ALP of 144. Labs reviewed from today which showed WBC of 10.4 hemoglobin 11.8 hematocrit 37.0 platelet count of 209. Sodium 136 potassium 3.7 chloride 91 bicarb 29. BUN 20 creatinine 1.08. She got a CAT scan which was negative for acute process but it did show old right temporal stroke. Echocardiogram, carotid Doppler and MRI brain is pending. She was not a candidate for thrombolytic because symptom onset is more than 4- 1/2 hours. Objective Exam - Vital Signs Vital Signs: Vital Signs - 24 hr 06/06/25 06/06/25 06/06/25 11:26 16:00 19:47 Temperature 98.5 F 98.5 F 98.4 F Pulse Rate 70 68 67 Respiratory 16 16 18 Rate Blood Pressure 135/60 132/60 143/60 [Right Arm] O2 Sat by Pulse 97 95 99 Oximetry 06/07/25 06/07/25 06/07/25 00:00 04:00 07:46 Temperature 98.3 F 98.0 F 98.7 F Pulse Rate 72 81 105 H Respiratory 18 16 16 Rate Blood Pressure 173/74 145/65 173/73 [Right Arm] O2 Sat by Pulse 94 L 95 95 Oximetry - Physical Exam Tele-Neuro Physical Exam (Narrative): Physical Exam: (done with the help of RN) Constitutional: Gen: NAD, pleasant, well nourished HEENT: NC/AT MAGGI, Neurologic Exam: Higher Functions: AA&Ox3; Tracks; Regards Follows simple and complex commands Communicates fluently and appropriately Language : Comprehension is intact; no aphasia; no dysarthria; repetition is intact; naming is normal; CN II : Visual elkins are full; CN III, IV, : EOMI; pursuit is smooth; no nystagmus CN V : Facial sensation is full and symmetric CN VII : Facial movement is full and symmetric CN VIII : hearing intact BL CN IX, X : unable to assess CN XI : SCM 5/5 BL CN XII : Tongue protrudes midline Sensory : intact to soft touch Motor : Strength 5/5 UE and LE BL, 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 Level of consciousness (LOC): 0=alert;1=arousable by minor stimulation;2=obtunded or needs strong stimulation to attend;3=unresponsive or reflex responses only (0) 1b. LOC Questions: 0=answers both;1=answers one;2=answers neither (0) 1c. LOC Commands: 0=performs both tasks;1=performs one task;2=performs neither task (0) 2. Best Gaze: 0=normal;1=partial gaze palsy;2=forced deviation or total gaze paresis (0) 3. Visual: 0=normal;1=partial hemianopia;2=complete hemianopia;3=blind (0) 4. Facial palsy: 0=normal;1=minor paresis;2=partial paralysis;3=complete paralysis FOR 5 AND 6 BELOW: 0=normal;1=drifts but maintains in air;2=unable to maintain in air;3=moves but unable to lift against gravity;4=no movement (1)0 (_)1 (_)2 (_)3 (_)4 (_)NA 5a. Motor arm-left (0)0 (_)1 (_)2 (_)3 (_)4 (_)NA 5b. Motor arm-right (0)0 (_)1 (_)2 (_)3 (_)4 (_)NA 6a. Motor leg-left (0)0 (_)1 (_)2 (_)3 (_)4 (_)NA 6ba. Motor leg-right (0) 7. Limb ataxia:0=absent;1=unilateral;2=bilateral; NA=unable to test (0) 8. Sensory: 0=normal;1=mild-moderate loss;2-severe or total loss (0) 9. Best language: 0=normal;1=mild-moderate aphasia, some deficits apparent but able to communicate;2=severe aphasia, fragmentary expression only, unable to communicate well;3=global aphasia, mute and no comprehension (0) 10. Dysarthria: 0=normal;1=mild-moderate, slurs some words;2=severe, speech mostly unintelligible; NA=unable to test (e.g.,intubation) (0) 11. Extinction/Inattention: 0=normal;1=visual,tactile,auditory or other extinction to bilateral simultaneous stimulation, but no severe neglect;2=answers neither Objective Data - Labs Lab/Micro Results: Lab Results-Last 24 Hours 06/06/25 06/06/25 06/06/25 Range/Units 11:33 16:23 21:09 WBC (3.98-10.04) x10^3/uL RBC (3.93-5.22) x10^6/uL Hgb (11.2-15.7) g/dL Hct (34.1-44.9) % MCV (79.4-94.8) fL MCH (25.6-32.2) pg MCHC (32.2-35.5) g/dL RDW (11.7-14.4) % Plt Count (182-369) x10^3/uL MPV (9.4-12.3) fL Gran % (34.0-71.1) % Immature Gran % (Auto) (0.001-0.429) % Nucleat RBC Rel Count (0.00-0.2) % Eos # (Auto) (0.04-0.36) x10^3/uL Immature Gran # (Auto) (0.001-0.031) x10^3u/L Absolute Lymphs (auto) (1.18-3.74) x10^3/uL Absolute Monos (auto) (0.24-0.86) x10^3/uL Absolute Nucleated RBC (0.00-0.012) x10^3u/L Lymphocytes % (19.3-51.7) % Monocytes % (4.7-12.5) % Eosinophils % (0.7-5.8) % Basophils % (0.1-1.2) % Absolute Granulocytes (1.56-6.13) x10^3/uL Basophils # (0.01-0.08) x10^3/uL Sodium (135-145) mmol/L Potassium (3.5-5.1) mmol/L Chloride (98-107) mmol/L Carbon Dioxide (22-30) mmol/L Anion Gap (5-15) MEQ/L BUN (7-17) mg/dL Creatinine (0.52-1.04) mg/dL Estimated GFR ML/MIN Glucose (74-106) mg/dL POC Glucometer 275 H 249 H 303 H (74 to 106) mg/dL Calcium (8.4-10.2) mg/dL Total Bilirubin (0.2-1.3) mg/dL AST (14-36) U/L ALT (0-35) U/L Alkaline Phosphatase (38-126) U/L Serum Total Protein (6.3-8.2) g/dL Albumin (3.5-5.0) g/dL Procalcitonin (0.030-0.080) ng/mL 06/07/25 06/07/25 06/07/25 Range/Units 04:40 04:40 04:40 WBC 11.6 H (3.98-10.04) x10^3/uL RBC 3.98 (3.93-5.22) x10^6/uL Hgb 12.0 (11.2-15.7) g/dL Hct 37.1 (34.1-44.9) % MCV 93.2 (79.4-94.8) fL MCH 30.2 (25.6-32.2) pg MCHC 32.3 (32.2-35.5) g/dL RDW 13.5 (11.7-14.4) % Plt Count 222 (182-369) x10^3/uL MPV 10.2 (9.4-12.3) fL Gran % 89.7 H (34.0-71.1) % Immature Gran % (Auto) 0.5 H (0.001-0.429) % Nucleat RBC Rel Count 0.0 (0.00-0.2) % Eos # (Auto) 0 L (0.04-0.36) x10^3/uL Immature Gran # (Auto) 0.06 H (0.001-0.031) x10^3u/L Absolute Lymphs (auto) 1.01 L (1.18-3.74) x10^3/uL Absolute Monos (auto) 0.11 L (0.24-0.86) x10^3/uL Absolute Nucleated RBC 0.00 (0.00-0.012) x10^3u/L Lymphocytes % 8.7 L (19.3-51.7) % Monocytes % 0.9 L (4.7-12.5) % Eosinophils % 0.0 L (0.7-5.8) % Basophils % 0.2 (0.1-1.2) % Absolute Granulocytes 10.42 H (1.56-6.13) x10^3/uL Basophils # 0.02 (0.01-0.08) x10^3/uL Sodium 133 L (135-145) mmol/L Potassium 4.0 (3.5-5.1) mmol/L Chloride 98 (98-107) mmol/L Carbon Dioxide 26 (22-30) mmol/L Anion Gap 13.1 (5-15) MEQ/L BUN 27 H (7-17) mg/dL Creatinine 1.11 H (0.52-1.04) mg/dL Estimated GFR 51.8 ML/MIN Glucose 333 H (74-106) mg/dL POC Glucometer (74 to 106) mg/dL Calcium 9.3 (8.4-10.2) mg/dL Total Bilirubin 1.60 H (0.2-1.3) mg/dL AST 24 (14-36) U/L ALT 31 (0-35) U/L Alkaline Phosphatase 150 H (38-126) U/L Serum Total Protein 6.7 (6.3-8.2) g/dL Albumin 4.0 (3.5-5.0) g/dL Procalcitonin 0.062 (0.030-0.080) ng/mL 06/07/25 Range/Units 07:22 WBC (3.98-10.04) x10^3/uL RBC (3.93-5.22) x10^6/uL Hgb (11.2-15.7) g/dL Hct (34.1-44.9) % MCV (79.4-94.8) fL MCH (25.6-32.2) pg MCHC (32.2-35.5) g/dL RDW (11.7-14.4) % Plt Count (182-369) x10^3/uL MPV (9.4-12.3) fL Gran % (34.0-71.1) % Immature Gran % (Auto) (0.001-0.429) % Nucleat RBC Rel Count (0.00-0.2) % Eos # (Auto) (0.04-0.36) x10^3/uL Immature Gran # (Auto) (0.001-0.031) x10^3u/L Absolute Lymphs (auto) (1.18-3.74) x10^3/uL Absolute Monos (auto) (0.24-0.86) x10^3/uL Absolute Nucleated RBC (0.00-0.012) x10^3u/L Lymphocytes % (19.3-51.7) % Monocytes % (4.7-12.5) % Eosinophils % (0.7-5.8) % Basophils % (0.1-1.2) % Absolute Granulocytes (1.56-6.13) x10^3/uL Basophils # (0.01-0.08) x10^3/uL Sodium (135-145) mmol/L Potassium (3.5-5.1) mmol/L Chloride (98-107) mmol/L Carbon Dioxide (22-30) mmol/L Anion Gap (5-15) MEQ/L BUN (7-17) mg/dL Creatinine (0.52-1.04) mg/dL Estimated GFR ML/MIN Glucose (74-106) mg/dL POC Glucometer 329 H (74 to 106) mg/dL Calcium (8.4-10.2) mg/dL Total Bilirubin (0.2-1.3) mg/dL AST (14-36) U/L ALT (0-35) U/L Alkaline Phosphatase (38-126) U/L Serum Total Protein (6.3-8.2) g/dL Albumin (3.5-5.0) g/dL Procalcitonin (0.030-0.080) ng/mL Microbiology 06/05/25 11:43 Urine Culture - Preliminary Catherized NO GROWTH TO DATE Accuchecks Date 06/07/25 Date 06/06/25 Date 06/06/25 Date 06/06/25 Date 06/06/25 Time 07:46 Time 21:09 Time 21:21 Time 16:31 Time 11:36 - Other Procedures & Test Other Procedures & Test: MRI brain: 1. Small 11 x 7 mm focus acute ischemia right thalamus. No acute hemorrhage/mass effect. 2. Atrophy, degenerative microischemia, and remote right temporal lobe infarct. Carotid u/s: 1. Small 11 x 7 mm focus acute ischemia right thalamus. No acute hemorrhage/mass effect. 2. Atrophy, degenerative microischemia, and remote right temporal lobe infarct. CTA: Minimal/mild arteriosclerotic disease bilaterally - Radiology Orders Radiology Orders: Radiology Procedures Category Date Time Status CAROTID BILATERAL [US] Stat Exams 06/06/25 07:00 Completed CERVICAL SPINE WO CONTRAST [CT] Stat Exams 06/05/25 11:40 Completed CHEST 1 VIEW (PORTABLE) Stat Exams 06/05/25 11:[address] ANGIOGRAPHY NECK [CT] Routine Exams 06/07/25 09:00 Ordered CTA HEAD W AND/OR WO CONTRAST [CT] Routine Exams 06/07/25 09:00 Ordered ECHO W/2D AND DOPPLER [US] Stat Exams 06/06/25 07:00 Taken HEAD WITHOUT CONTRAST [CT] Stat Exams 06/05/25 11:40 Completed KNEE (3 VIEWS) Stat Exams 06/05/25 11:38 Completed KNEE (3 VIEWS) Stat Exams 06/05/25 11:39 Completed LOWER LEG Stat Exams 06/05/25 11:41 Completed MRI BRAIN W/O CONTRAST [MRI] Stat Exams 06/06/25 07:00 Completed Assessment & Plan - Encounter Encounter: Assessment: 75-year-old female presented to the hospital with repeated falls. 1. Fall: Patient fell twice prior to admission. Prior to falling, patient felt dizzy and fell on the ground and was having trouble getting up. She asked her for help and then with the help of walker, she went to the restroom and fell again. She did not pass out. Denies lateralizing weakness prior to fall. 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 Had a stroke in the past. CT scan negative for acute process Carotid Doppler echocardiogram pending. MRI shows acute right thalamic infarct and remote right temporal lobe infarct CTA shows mild ateriosclerotic disease She is on aspirin 81 and Plavix along with Zetia which she takes as her home medications Patient reports a history of remote (about 20 years ago) of one episode of transient atrial fibrillation in the setting a gallbladder surgery. Ambulatory telemetry at that time was reassuring. Plan: Stroke workup is pending Increase aspirin to 325mg daily Continue home plavix 75mg daily Recommend ambulatory telemetry to assess for atrial fibrillation Stroke education Risk factor modification PT OT ST DVT prophylaxis-CULLEN/SCDs "The entirety of this encounter was performed via Telemedicine using audio and visual "
--- NOTE | 2025-06-07 10:29 | XRAY ---
Indication: Stroke. Minimal/mild bilateral carotid calcifications seen on recent carotid ultrasound June 06, 2025. Conventional contrast-enhanced CTA neck performed using 80 cc Isovue 370 contrast. 2D sagittal and coronal reformatted images obtained. Additional 3D reformatted images obtained using separate workstation. Comparison: None Visualized aortic arch demonstrates anatomic variant for bovine arch. Minimal eccentric calcifications origin left subclavian artery without critical stenosis or obstruction. Examination right carotid circulation demonstrates widely patent common carotid and external carotid arteries. Minimal circumferential calcifications in carotid bulb. Origin/proximal internal carotid artery demonstrates mild eccentric calcifications. No critical stenosis/obstruction. Examination left carotid circulation also demonstrates widely patent common carotid and external carotid arteries. Minimal circumferential calcifications in carotid bulb and origin/proximal internal carotid artery without critical stenosis/obstruction. Vertebral arteries are bilaterally patent with the right larger in caliber. Visualized soft tissues are negative for pathologic lymphadenopathy. Parotid and submandibular glands are bilaterally symmetric. Atrophic thyroid enhances homogeneously. Supra and infraglottic airway widely patent. Osseous structures intact with minimal C4-C6 degenerative endplate spurring. Lung apices are clear. Impression: Minimal/mild arteriosclerotic disease bilaterally as detailed. Findings similar to carotid ultrasound exam 1 day earlier. Negative for critical stenosis/obstruction.
--- NOTE | 2025-06-07 10:33 | XRAY ---
Indication: Stroke. Conventional contrast-enhanced CTA head performed using 80 cc Isovue 370 contrast. 2D sagittal and coronal reformatted images obtained. Additional 3D reformatted images obtained using separate workstation. Comparison: None Distal internal carotid arteries are bilaterally symmetric with minimal scattered arteriosclerotic calcifications in both parasellar segments. No critical stenosis, obstruction, or AV malformation. Normal carotid terminus with normal branching A1 and M1 segments bilaterally. More distal anterior cerebral and middle cerebral arteries are normal in CTA appearance bilaterally. Posterior circulation demonstrates normal CTA appearance to the basilar, left/right posterior cerebral, and left/right superior cerebellar arteries. Venous sinuses/drainage unremarkable. Brain parenchyma is negative for abnormal intra or extra-axial enhancement. Impression: Minimal scattered arteriosclerotic disease both parasellar internal carotid arteries without critical stenosis/obstruction. Remaining CTA head with contrast exam is negative.
--- NOTE | 2025-06-07 12:01 | PCM.NOTE ---
Date and Time: 06/07/25 1153 Subjective Assessment: Ms. Villarreal is a 75-year-old female with a history of prior cerebrovascular accident, hypertension, hyperlipidemia, type 2 diabetes mellitus, hypothyroidism, gastroesophageal reflux disease, and arthritis, who presented to the emergency department on 06/05/25 after experiencing two falls earlier in the day. The first occurred upon standing to use the restroom when she became lightheaded and dizzy, and the second when her walker rolled forward, causing her to lose balance. She denied loss of consciousness or head strike but reported striking her back. Since then, she has experienced intermittent left arm numbness without other focal neurological symptoms. On arrival, she was alert and oriented, hemodynamically stable aside from severe hypertension (BP 225/79 mmHg), which improved with IV hydralazine and is now well controlled with resumption of her home antihypertensive medications. Neurologic examination revealed no focal weakness or deficits. CT head showed no acute intracranial process but did demonstrate remote right temporal lobe encephalomalacia consistent with prior infarct. MRI brain revealed a small 11 7 mm focus of acute ischemia in the right thalamus without hemorrhage or mass effect, along with atrophy, chronic microvascular ischemic changes, and remote temporal lobe infarct. Carotid ultrasound demonstrated mild to minimal scattered atherosclerotic disease bilaterally with no hemodynamically significant stenosis. Laboratory studies were overall unremarkable, with total bilirubin now 1.6 mg/dL (improved from 2.0), AST and ALT within normal limits, and alkaline phosphatase 144 U/L (reduced from 162). Electrolytes and renal function remain normal, and urine culture was negative despite moderate bacteria on urinalysis. Neurology reviewed the imaging and recommended a CTA of the head and neck, for which the patient will be premedicated due to her iodine contrast allergy, and advised continuation of Plavix, aspirin, and Zetia. They also recommended an outpatient CASSI (not available at this facility) and a 30-day cardiac event monitor to be placed prior to discharge with cardiology follow-up. Occupational therapy evaluated the patient and recommended outpatient therapy, which will be arranged prior to discharge. Possible discharge tomorrow is anticipated pending CTA results and neurology follow-up. 06/06/25: Met with patient bedside. Endorses continued numbness and weakness in her LUE. PT/OT has evaluated patient with recommendations for OP PT/OT. Neurology consulted on MRI findings as stated above. Plan for potential discharge tomorrow with OP follow up with cardiology and neurology pending CTA head/neck and further recommendations from neurology. 06/07/25: Patient evaluated at bedside and continues to demonstrate persistent left upper and lower extremity weakness, resulting in impaired mobility and decreased ability to perform activities of daily living independently. She requires continued skilled therapy for strength, balance, and functional recovery following recent cerebrovascular event workup. Patient expresses preference for discharge to [facility] ([facility]) for skilled rehabilitation. Case management is coordinating placement and authorization. Neurology re-consulted with CTA head and neck showing mild bilateral atherosclerotic disease without significant stenosis. Recommendations include increasing aspirin to 325 mg daily (from home dose of 81 mg), continuation of clopidogrel 75 mg daily and ezetimibe, initiation of PT/OT, and completion of CASSI and 30-day cardiac event monitor post-discharge. - Review of Systems Constitutional: No Symptoms Eyes: No Symptoms Ears, Nose, & Throat: No Symptoms Respiratory: No Symptoms Cardiac: No Symptoms Abdominal/Gastrointestinal: No Symptoms Genitourinary Symptoms: No Symptoms Musculoskeletal: Back Pain, Joint Pain Skin: No Symptoms Neurological: Focal Weakness (LUE/LLE), Gait Changes, Parasthesia (LUE ) Psychological: No Symptoms Endocrine: No Symptoms Hematologic/Lymphatic: No Symptoms Immunological/Allergic: No Symptoms Objective Exam General Appearance: no apparent distress Neurologic Exam: alert, oriented x 3, cooperative Skin Exam: normal color Wound Assessment: Skin/Wound Assessment Wound/Incision Assessment Start: 06/07/25 11:01 Text: Status: Active Freq: Q6H Protocol: Document 06/07/25 08:05 JV (Rec: 06/07/25 11:23 JV [id number]) Wound/Incision Assessment Right Knee Wound Assessment Shift Assessment Wound Type Skin Tear Wound Stage Non Pressure Wound Dressing Status Dry & Intact Primary Dressing mepilex Comment Drsg in place, no drainage noted Left Elbow Wound Assessment Shift Assessment Wound Type Skin Tear Wound Stage Non Pressure Wound Dressing Status Dry & Intact Drainage Description Sanguineous Primary Dressing mepilex Comment Drsg in place, minimal drainage noted Wound Photo Photo Taken No Eye Exam: PERRL Ears, Nose, Throat Exam: normal ENT inspection Neck Exam: normal inspection Respiratory Exam: normal breath sounds, lungs clear Cardiovascular Exam: regular rate/rhythm, normal heart sounds Gastrointestinal/Abdomen Exam: soft, normal bowel sounds Extremity Exam: parasthesia (LUE), limited range of motion (Left hand) Back Exam: normal inspection Pelvic Exam: deferred Rectal Exam: deferred Objective Data Vital Signs: Vital Signs - 24 hr Temp Pulse Resp BP Pulse Ox 06/07/25 07:46 98.7 F 105 H 16 173/73 95 06/07/25 04:00 98.0 F 81 16 145/65 95 06/07/25 00:00 98.3 F 72 18 173/74 94 L 06/06/25 19:47 98.4 F 67 18 143/60 99 06/06/25 16:00 98.5 F 68 16 132/60 95 Pain Assessment - Last Documented Pain Intensity 3 Pain Scale Used 0-10 Pain Scale Intake and Output: Intake & Output 06/04/25 06/05/25 06/06/25 06/07/25 11:59 11:59 11:59 11:59 Intake Total 780 840 Output Total 845 Balance -65 840 Weight 88.4 kg 88.4 kg Lab Results: Lab Results-Last 24 Hours 06/06/25 06/06/25 06/07/25 Range/Units 16:23 21:09 04:40 WBC 11.6 H (3.98-10.04) x10^3/uL RBC 3.98 (3.93-5.22) x10^6/uL Hgb 12.0 (11.2-15.7) g/dL Hct 37.1 (34.1-44.9) % MCV 93.2 (79.4-94.8) fL MCH 30.2 (25.6-32.2) pg MCHC 32.3 (32.2-35.5) g/dL RDW 13.5 (11.7-14.4) % Plt Count 222 (182-369) x10^3/uL MPV 10.2 (9.4-12.3) fL Gran % 89.7 H (34.0-71.1) % Immature Gran % (Auto) 0.5 H (0.001-0.429) % Nucleat RBC Rel Count 0.0 (0.00-0.2) % Eos # (Auto) 0 L (0.04-0.36) x10^3/uL Immature Gran # (Auto) 0.06 H (0.001-0.031) x10^3u/L Absolute Lymphs (auto) 1.01 L (1.18-3.74) x10^3/uL Absolute Monos (auto) 0.11 L (0.24-0.86) x10^3/uL Absolute Nucleated RBC 0.00 (0.00-0.012) x10^3u/L Lymphocytes % 8.7 L (19.3-51.7) % Monocytes % 0.9 L (4.7-12.5) % Eosinophils % 0.0 L (0.7-5.8) % Basophils % 0.2 (0.1-1.2) % Absolute Granulocytes 10.42 H (1.56-6.13) x10^3/uL Basophils # 0.02 (0.01-0.08) x10^3/uL Sodium (135-145) mmol/L Potassium (3.5-5.1) mmol/L Chloride (98-107) mmol/L Carbon Dioxide (22-30) mmol/L Anion Gap (5-15) MEQ/L BUN (7-17) mg/dL Creatinine (0.52-1.04) mg/dL Estimated GFR ML/MIN Glucose (74-106) mg/dL POC Glucometer 249 H 303 H (74 to 106) mg/dL Calcium (8.4-10.2) mg/dL Total Bilirubin (0.2-1.3) mg/dL AST (14-36) U/L ALT (0-35) U/L Alkaline Phosphatase (38-126) U/L Serum Total Protein (6.3-8.2) g/dL Albumin (3.5-5.0) g/dL Procalcitonin (0.030-0.080) ng/mL 06/07/25 06/07/25 06/07/25 Range/Units 04:40 04:40 07:22 WBC (3.98-10.04) x10^3/uL RBC (3.93-5.22) x10^6/uL Hgb (11.2-15.7) g/dL Hct (34.1-44.9) % MCV (79.4-94.8) fL MCH (25.6-32.2) pg MCHC (32.2-35.5) g/dL RDW (11.7-14.4) % Plt Count (182-369) x10^3/uL MPV (9.4-12.3) fL Gran % (34.0-71.1) % Immature Gran % (Auto) (0.001-0.429) % Nucleat RBC Rel Count (0.00-0.2) % Eos # (Auto) (0.04-0.36) x10^3/uL Immature Gran # (Auto) (0.001-0.031) x10^3u/L Absolute Lymphs (auto) (1.18-3.74) x10^3/uL Absolute Monos (auto) (0.24-0.86) x10^3/uL Absolute Nucleated RBC (0.00-0.012) x10^3u/L Lymphocytes % (19.3-51.7) % Monocytes % (4.7-12.5) % Eosinophils % (0.7-5.8) % Basophils % (0.1-1.2) % Absolute Granulocytes (1.56-6.13) x10^3/uL Basophils # (0.01-0.08) x10^3/uL Sodium 133 L (135-145) mmol/L Potassium 4.0 (3.5-5.1) mmol/L Chloride 98 (98-107) mmol/L Carbon Dioxide 26 (22-30) mmol/L Anion Gap 13.1 (5-15) MEQ/L BUN 27 H (7-17) mg/dL Creatinine 1.11 H (0.52-1.04) mg/dL Estimated GFR 51.8 ML/MIN Glucose 333 H (74-106) mg/dL POC Glucometer 329 H (74 to 106) mg/dL Calcium 9.3 (8.4-10.2) mg/dL Total Bilirubin 1.60 H (0.2-1.3) mg/dL AST 24 (14-36) U/L ALT 31 (0-35) U/L Alkaline Phosphatase 150 H (38-126) U/L Serum Total Protein 6.7 (6.3-8.2) g/dL Albumin 4.0 (3.5-5.0) g/dL Procalcitonin 0.062 (0.030-0.080) ng/mL 06/07/25 Range/Units 11:39 WBC (3.98-10.04) x10^3/uL RBC (3.93-5.22) x10^6/uL Hgb (11.2-15.7) g/dL Hct (34.1-44.9) % MCV (79.4-94.8) fL MCH (25.6-32.2) pg MCHC (32.2-35.5) g/dL RDW (11.7-14.4) % Plt Count (182-369) x10^3/uL MPV (9.4-12.3) fL Gran % (34.0-71.1) % Immature Gran % (Auto) (0.001-0.429) % Nucleat RBC Rel Count (0.00-0.2) % Eos # (Auto) (0.04-0.36) x10^3/uL Immature Gran # (Auto) (0.001-0.031) x10^3u/L Absolute Lymphs (auto) (1.18-3.74) x10^3/uL Absolute Monos (auto) (0.24-0.86) x10^3/uL Absolute Nucleated RBC (0.00-0.012) x10^3u/L Lymphocytes % (19.3-51.7) % Monocytes % (4.7-12.5) % Eosinophils % (0.7-5.8) % Basophils % (0.1-1.2) % Absolute Granulocytes (1.56-6.13) x10^3/uL Basophils # (0.01-0.08) x10^3/uL Sodium (135-145) mmol/L Potassium (3.5-5.1) mmol/L Chloride (98-107) mmol/L Carbon Dioxide (22-30) mmol/L Anion Gap (5-15) MEQ/L BUN (7-17) mg/dL Creatinine (0.52-1.04) mg/dL Estimated GFR ML/MIN Glucose (74-106) mg/dL POC Glucometer 370 H (74 to 106) mg/dL Calcium (8.4-10.2) mg/dL Total Bilirubin (0.2-1.3) mg/dL AST (14-36) U/L ALT (0-35) U/L Alkaline Phosphatase (38-126) U/L Serum Total Protein (6.3-8.2) g/dL Albumin (3.5-5.0) g/dL Procalcitonin (0.030-0.080) ng/mL Radiology Exams: Radiology Procedures Category Date Time Status CAROTID BILATERAL [US] Stat Exams 06/06/25 07:00 Completed CERVICAL SPINE WO CONTRAST [CT] Stat Exams 06/05/25 11:40 Completed CHEST 1 VIEW (PORTABLE) Stat Exams 06/05/25 11:[address] ANGIOGRAPHY NECK [CT] Routine Exams 06/07/25 09:00 Completed CTA HEAD W AND/OR WO CONTRAST [CT] Routine Exams 06/07/25 09:00 Completed ECHO W/2D AND DOPPLER [US] Stat Exams 06/06/25 07:00 Taken HEAD WITHOUT CONTRAST [CT] Stat Exams 06/05/25 11:40 Completed KNEE (3 VIEWS) Stat Exams 06/05/25 11:38 Completed KNEE (3 VIEWS) Stat Exams 06/05/25 11:39 Completed LOWER LEG Stat Exams 06/05/25 11:41 Completed MRI BRAIN W/O CONTRAST [MRI] Stat Exams 06/06/25 07:00 Completed Medications: Medications Generic Name Dose Route Start Last Admin Trade Name Freq PRN Reason Stop Dose Admin Acetaminophen 650 mg 06/05/25 16:44 06/07/25 08:22 Acetaminophen 325 Mg Tablet PO 07/05/25 16:43 650 mg Q4H PRN PRN Administration PAIN, FEVER, HEADACHE Aspirin 81 mg 06/05/25 17:00 06/07/25 11:13 Aspirin 81 Mg Tablet.Ec PO 07/05/25 16:59 81 mg DAILY MARCELA Administration Atenolol 50 mg 06/05/25 17:00 06/07/25 11:13 Atenolol 50 Mg Tablet PO 07/05/25 16:59 50 mg DAILY MARCELA Administration Clopidogrel Bisulfate 75 mg 06/05/25 17:00 06/07/25 11:13 Clopidogrel Bisulfate 75 Mg Tablet PO 07/05/25 16:59 75 mg DAILY MARCELA Administration Cyclobenzaprine HCl 5 mg 06/05/25 16:55 Cyclobenzaprine Hcl 10 Mg Tablet PO 07/05/25 16:54 HS PRN PRN INSOMNIA Ezetimibe 10 mg 10/14/25 22:00 06/06/25 21:36 Ezetimibe 10 Mg Tab PO 07/05/25 21:59 10 mg HS MARCELA Administration Hydrochlorothiazide 25 mg 06/05/25 17:00 06/06/25 09:03 Hydrochlorothiazide 25 Mg Tablet PO 07/05/25 16:59 25 mg DAILY MARCELA Administration Sodium Chloride 1,000 mls @ 100 mls/hr 06/07/25 05:30 06/07/25 08:38 Sodium Chloride 0.9% 1000 Ml IV 07/07/25 05:29 100 mls/hr .Q10H MARCELA Administration Insulin Human Lispro 0 unit 06/07/25 05:25 06/07/25 08:21 Insulin Lispro 1 Unit SQ 07/07/25 05:24 12 unit UD PRN Administration HYPERGLYCEMIA Insulin Human Lispro 8 unit 06/07/25 12:00 Insulin Lispro 1 Unit SQ 07/07/25 11:59 TIDWM MARCELA Levothyroxine Sodium 88 mcg 06/05/25 17:00 06/07/25 11:24 Levothyroxine Sodium 88 Mcg Tablet PO 07/05/25 16:59 88 mcg DAILY MARCELA Administration Losartan Potassium 100 mg 06/05/25 17:00 06/07/25 11:13 Losartan Potassium 50 Mg Tablet PO 07/05/25 16:59 100 mg DAILY MARCELA Administration Miscellaneous Information 1 each 06/05/25 17:00 Medication Intervention 1 Each Each 07/05/25 16:59 .RN TO CHECK [facility] Non-Formulary Medication 1 each 06/07/25 10:00 Hold Metformin Products For 48hrs 06/09/25 10:00 Q48H MARCELA Ondansetron HCl 4 mg 06/05/25 16:44 Ondansetron Hcl 4 Mg/2 Ml Vial IV 07/05/25 16:43 Q6H PRN PRN NAUSEA/VOMITING Pantoprazole Sodium 40 mg 06/05/25 17:00 06/07/25 11:13 Protonix (Pantoprazole) 40 Mg Tablet PO 07/05/25 16:59 40 mg DAILY MARCELA Administration Discontinued Medications Generic Name Dose Route Start Last Admin Trade Name Freq PRN Reason Stop Dose Admin Acetaminophen 1,000 mg 06/05/25 15:10 06/05/25 15:20 Acetaminophen 500 Mg Tablet PO 06/05/25 15:11 1,000 mg STAT STA Administration Acetaminophen Confirm 06/05/25 15:19 Acetaminophen 500 Mg Tablet Administered 06/05/25 15:20 Dose 1,000 mg .ROUTE .STK-MED ONE Diphenhydramine HCl 50 mg 06/07/25 08:00 06/07/25 08:22 Diphenhydramine Hcl 50 Mg/Ml Vial IV 06/07/25 08:01 50 mg 0800 MARCELA Administration Hydralazine HCl 10 mg 06/05/25 14:51 06/05/25 15:04 Hydralazine Hcl 20 Mg/Ml Vial IV 06/05/25 14:52 10 mg STAT ONE Administration Hydralazine HCl Confirm 06/05/25 14:56 Hydralazine Hcl 20 Mg/Ml Vial Administered 06/05/25 14:57 Dose 20 mg .ROUTE .STK-MED ONE Hydralazine HCl 5 mg 06/05/25 16:44 Hydralazine Hcl 20 Mg/Ml Vial IV 07/05/25 16:43 Q4HPRN PRN HYPERTENSION Ceftriaxone Sodium 1 gm in 100 mls @ 200 mls/hr 06/06/25 10:00 06/05/25 15:16 Rocephin 1 Gm / 100 Ml Nacl IV 07/06/25 09:59 200 mls/hr Q24H10 MARCELA 200 mls/hr Administration Ceftriaxone Sodium Confirm 06/05/25 14:57 Rocephin 1 Gm / 100 Ml Nacl Administered 06/05/25 14:58 Dose 1 gm in 100 mls @ ud IV .STK-MED ONE Ceftriaxone Sodium 1 gm in 100 mls @ 200 mls/hr 06/06/25 10:00 Rocephin 1 Gm / 100 Ml Nacl IV 07/06/25 09:59 Q24H10 MARCELA Insulin Human Lispro 0 unit 06/05/25 16:44 06/06/25 21:36 Insulin Lispro 1 Unit SQ 07/05/25 16:43 9 unit UD PRN Administration HYPERGLYCEMIA Lidocaine 1 patch 06/06/25 04:30 06/06/25 04:28 Lidocaine Hcl 1 Patch Patch TOP 06/06/25 04:31 1 patch ONCE ONE Administration Prednisone 50 mg 06/06/25 18:00 06/07/25 08:22 Prednisone 20 Mg Tablet PO 06/07/25 08:01 50 mg 0200,0800,1800 MARCELA Administration Multi-Disciplinary Progress Notes: Multi-Disciplinary Progress Notes 06/06/25 12:21 Radiology Note by JOE KEVIN TRANSTHORACIC ECHOCARDIOGRAM 06/06/2025 1. Normal biventricular wall thickness, chamber size, and systolic function. 2. Estimated left ventricular ejection fraction is 65%. 3. Normal diastolic function profile. 4. Mild aortic sclerosis without stenosis. Valves are otherwise structurally normal without evidence of a vegetation. 5. Doppler: No significant valvular regurgtiation. 6. Unable to estimate PA systolic pressure. 7. Normal right atrial pressure. 8. No pericardial effusion. 9. Impression: No obvious cardiac source of emboli. Joe Kevin MD [facility] Initialized on 06/06/25 12:21 - END OF NOTE Assessment/Plan (1) Acute stroke due to ischemia Current Visit: Yes Status: Acute Assessment & Plan: - positional dizziness and lightheadedness upon standing, raising concern for an orthostatic component, though neurologic cause cannot be excluded given left arm paresthesia. -CT head negative for acute process, prior infarct noted. -Tele -MRI brain and CTA head/neck to evaluate for ischemia or vascular stenosis -Echocardiogram -Orthostatic vitals -Neurology consultation for evaluation of transient left arm numbness and prior stroke. -Neuro checks every 4 hours; fall precautions. -PT/OT evaluation for balance and gait safety. 06/06: -MRI findings revealed a small 11 7 mm focus of acute ischemia in the right thalamus without hemorrhage or mass effect, along with atrophy, chronic microvascular ischemic changes, and remote temporal lobe infarct. -Carotid ultrasound demonstrated mild to minimal scattered atherosclerotic disease bilaterally with no hemodynamically significant stenosis. -Neurology consulted - agree with plan- continue ASA/Plavix/Zetia- patient will need CASSI as OP and 30 day event monitor placed on discharge with cardiology/neurology follow up - Will get CTA head/neck- patient will need pre- medicated due to allergy per protocol - Prednisone 50mg at 15hours, 7hours, and 1 hour prior to exam at 9 a.m . Benadryl 50mg 1 hour prior to exams. Nursing notified and pharmacy has scheduled premedication 06/07: -CMP/CBC reviewed -Neurology documentation reviewed - agree with plan -CTA head/neck reviewed mild bilateral atherosclerotic disease without significant stenosis;Increase aspirin to 325 mg daily (from home 81 mg);Continue clopidogrel 75 mg daily and ezetimibe. -Arrange CASSI and 30-day event monitor post-discharge for further embolic source evaluation. -Arrange SNF placement for rehab at [facility] ([facility])- pending authorization -Patient demonstrates persistent LUE/LLE weakness, impaired balance, and decreased functional independence in ambulation and ADLs. Requires ongoing skilled PT/OT for gait training, strengthening, and safety. SNF placement indicated for continued multidisciplinary rehabilitation and assistance with medication management, monitoring, and completion of diagnostic follow-up. (2) Tingling of left upper extremity Current Visit: Yes Status: Acute Assessment & Plan: -see near syncope for plan Code(s): R20.2 - PARESTHESIA OF SKIN (3) Hypertensive urgency Current Visit: Yes Status: Acute Assessment & Plan: -SBP peaked at 225 mmHg; improved following hydralazine 10 mg IV. No evidence of end-organ damage. -Resume home antihypertensives -PRN IV hydralazine for SBP >180 mmHg. -Avoid rapid BP reduction; gradual goal <160 systolic within 24 hours. -Monitor neurologic status during BP management. 06/06: - BP now stable with home medications Code(s): I16.0 - HYPERTENSIVE URGENCY (4) Fall Current Visit: Yes Status: Acute Assessment & Plan: -CT head showed no acute intracranial process, but did reveal remote right temporal lobe encephalomalacia consistent with prior infarct. - Chest X-ray, bilateral knee, and tibia/fibula X-rays showed no acute findings -PT/OT -See plan for near syncopal episode 06/06: -PT/OT have evaluated patient with recs for continued OP therapy 06/07: --Arrange SNF placement for rehab at [facility] ([facility])- pending authorization -Patient demonstrates persistent LUE/LLE weakness, impaired balance, and decreased functional independence in ambulation and ADLs. Requires ongoing skilled PT/OT for gait training, strengthening, and safety. SNF placement indicated for continued multidisciplinary rehabilitation and assistance with medication management, monitoring, and completion of diagnostic follow-up. (2) Tingling of left upper extremity Code(s): W19.XXXA - UNSPECIFIED FALL, INITIAL ENCOUNTER (5) Transaminitis Current Visit: Yes Status: Acute Assessment & Plan: -Mild cholestatic pattern without symptoms. -CMP -trend -Review medications for hepatotoxicity. -Consider RUQ ultrasound if bilirubin or ALP rises 06/06: -Reviewed -Tbili down-trending now at 1.60 AST and ALT WNL, ALP down-trending 06/07: -Stable with TBili at 1.60 AST, ALT wnl ALP at 150 Code(s): R74.01 - ELEVATION OF LEVELS OF LIVER TRANSAMINASE LEVELS (6) DMII (diabetes mellitus, type 2) Current Visit: Yes Status: Acute Assessment & Plan: -ADA diet -SSI increased to HD- add meal time 8 units- blood glucose level up due to pre treatment with prednisone for CT scan -monitor closely -A1c 7.09 good control (7) Hypothyroid Current Visit: Yes Status: Acute Assessment & Plan: -Check TSH -Continue levothyroxine- adjust as needed Code(s): E03.9 - HYPOTHYROIDISM, UNSPECIFIED (8) Remote history of stroke Current Visit: Yes Status: Acute Assessment & Plan: -continue plavix, ASA, and Zetia Code(s): Z86.73 - PRSNL HX OF TIA (TIA), AND CEREB INFRC W/O RESID DEFICITS (9) HLD (hyperlipidemia) Current Visit: Yes Status: Acute Assessment & Plan: -continue zetia Code(s): E78.5 - HYPERLIPIDEMIA, UNSPECIFIED (10) Arthritis Current Visit: Yes Status: Acute Assessment & Plan: -continue home meds Code(s): M19.90 - UNSPECIFIED OSTEOARTHRITIS, UNSPECIFIED SITE (11) UTI (urinary tract infection) Current Visit: Yes Status: Acute Qualifiers: Urinary tract infection type: site unspecified Hematuria presence: without hematuria Qualified Code(s): N39.0 - Urinary tract infection, site not specified Assessment & Plan: -treated in ED with ceftriaxone, UA with demonstrated moderate bacteria without pyuria or nitrites. -Patient asymptomatic -Hold further antibiotics- follow culture 06/06: -Negative Ucult - no symptoms VTE: Plavix/ASA/SCD PPI: protonix Dispo: 1-2 days Code status: Full Code Plan of care time spent > 40 mins Code(s): I63.9 - CEREBRAL INFARCTION, UNSPECIFIED (2) Near syncope Current Visit: Yes Status: Acute (3) Tingling of left upper extremity Current Visit: Yes Status: Acute Code(s): R20.2 - PARESTHESIA OF SKIN (4) Hypertensive urgency Current Visit: Yes Status: Acute Code(s): I16.0 - HYPERTENSIVE URGENCY (5) Fall Current Visit: Yes Status: Acute Code(s): W19.XXXA - UNSPECIFIED FALL, INITIAL ENCOUNTER (6) Transaminitis Current Visit: Yes Status: Acute Code(s): R74.01 - ELEVATION OF LEVELS OF LIVER TRANSAMINASE LEVELS (7) DMII (diabetes mellitus, type 2) Current Visit: Yes Status: Acute (8) Hypothyroid Current Visit: Yes Status: Acute Code(s): E03.9 - HYPOTHYROIDISM, UNSPECIFIED (9) Remote history of stroke Current Visit: Yes Status: Acute Code(s): Z86.73 - PRSNL HX OF TIA (TIA), AND CEREB INFRC W/O RESID DEFICITS (10) HLD (hyperlipidemia) Current Visit: Yes Status: Acute Code(s): E78.5 - HYPERLIPIDEMIA, UNSPE CIFIED (11) Arthritis Current Visit: Yes Status: Acute Code(s): M19.90 - UNSPECIFIED OSTEOARTHRITIS, UNSPECIFIED SITE (12) UTI (urinary tract infection) Current Visit: Yes Status: Acute Qualifiers: Urinary tract infection type: site unspecified Hematuria presence: without hematuria Qualified Code(s): N39.0 - Urinary tract infection, site not speci fied Code(s): N39.0 - URINARY TRACT INFECTION, SITE NOT SPECIFIED
[2025-06-07] MEDS: HUMALOG SQ SCH (12:16)
[2025-06-07] MEDS: HOLD METFORMIN PRODUCTS FOR 48 HOURS MC SCH (17:19)
[2025-06-08 05:12] LABS: BASOPHIL % 0.1 % (0.1-1.2); Basophil (Absolute #) 0.02 x10^3/uL (0.01-0.08); Eosinophil (Absolute #) 0.01 x10^3/uL (0.04-0.36); Hematocrit 33.6 % (34.1-44.9); Hemoglobin 10.6 g/dL (11.2-15.7); IMMATURE GRAN # 0.11 x10^3u/L (0.001-0.031); IMMATURE GRAN % 0.7 % (0.001-0.429); Lymphocyte (Absolute #) 2.66 x10^3/uL (1.18-3.74); Mean Corpuscular Hemoglobin 30.0 pg (25.6-32.2); Mean Corpuscular Hgb Concent. 31.5 g/dL (32.2-35.5); Monocyte (Absolute #) 1.37 x10^3/uL (0.24-0.86); NUCLEATED RBC # 0.00 x10^3u/L (0.00-0.012); NUCLEATED RBC % 0.0 % (0.00-0.2); Platelet Count 191 x10^3/uL (182-369); Red Blood Count 3.53 x10^6/uL (3.93-5.22); White Blood Count 16.6 x10^3/uL (3.98-10.04)
[2025-06-08 05:35] LABS: Calcium 8.4 mg/dL (8.4-10.2); Carbon Dioxide 27.0 mmol/L (22-30); Creatinine 1 1.24 mg/dL (0.52-1.04); EST GLOMERULAR FILTRATION RATE 45.4 ML/MIN; Glucose 158.0 mg/dL (74-106); Potassium 3.3 mmol/L (3.5-5.1); SGOT/AST 22.0 U/L (14-36); SGPT/ALT 24.0 U/L (0-35); Total Protein 5.9 g/dL (6.3-8.2)
[2025-06-08] MEDS: Klor Con PO ONE (08:52)
[2025-06-08] MEDS: Ecotrin 325 MG PO SCH (09:39)
[2025-06-08] MEDS ORDERED: Ecotrin 325 MG PO SCH (14:18)
[2025-06-08] MEDS: Klor Con PO SCH (14:18)
--- NOTE | 2025-06-08 14:20 | PCM.NOTE ---
Date and Time: 06/08/25 1414 Subjective Assessment: Ms. Villarreal is a 75-year-old female with a history of prior cerebrovascular accident, hypertension, hyperlipidemia, type 2 diabetes mellitus, hypothyroidism, gastroesophageal reflux disease, and arthritis, who presented to the emergency department on 06/05/25 after experiencing two falls earlier in the day. The first occurred upon standing to use the restroom when she became lightheaded and dizzy, and the second when her walker rolled forward, causing her to lose balance. She denied loss of consciousness or head strike but reported striking her back. Since then, she has experienced intermittent left arm numbness without other focal neurological symptoms. On arrival, she was alert and oriented, hemodynamically stable aside from severe hypertension (BP 225/79 mmHg), which improved with IV hydralazine and is now well controlled with resumption of her home antihypertensive medications. Neurologic examination revealed no focal weakness or deficits. CT head showed no acute intracranial process but did demonstrate remote right temporal lobe encephalomalacia consistent with prior infarct. MRI brain revealed a small 11 7 mm focus of acute ischemia in the right thalamus without hemorrhage or mass effect, along with atrophy, chronic microvascular ischemic changes, and remote temporal lobe infarct. Carotid ultrasound demonstrated mild to minimal scattered atherosclerotic disease bilaterally with no hemodynamically significant stenosis. Laboratory studies were overall unremarkable, with total bilirubin now 1.6 mg/dL (improved from 2.0), AST and ALT within normal limits, and alkaline phosphatase 144 U/L (reduced from 162). Electrolytes and renal function remain normal, and urine culture was negative despite moderate bacteria on urinalysis. Neurology reviewed the imaging and recommended a CTA of the head and neck, for which the patient will be premedicated due to her iodine contrast allergy, and advised continuation of Plavix, aspirin, and Zetia. They also recommended an outpatient CASSI (not available at this facility) and a 30-day cardiac event monitor to be placed prior to discharge with cardiology follow-up. Occupational therapy evaluated the patient and recommended outpatient therapy, which will be arranged prior to discharge. Possible discharge tomorrow is anticipated pending CTA results and neurology follow-up. 06/06/25: Met with patient bedside. Endorses continued numbness and weakness in her LUE. PT/OT has evaluated patient with recommendations for OP PT/OT. Neurology consulted on MRI findings as stated above. Plan for potential discharge tomorrow with OP follow up with cardiology and neurology pending CTA head/neck and further recommendations from neurology. 06/07/25: Patient evaluated at bedside and continues to demonstrate persistent left upper and lower extremity weakness, resulting in impaired mobility and decreased ability to perform activities of daily living independently. She requires continued skilled therapy for strength, balance, and functional recovery following recent cerebrovascular event workup. Patient expresses preference for discharge to [facility] for skilled rehabilitation. Case management is coordinating placement and authorization. Neurology re-consulted with CTA head and neck showing mild bilateral atherosclerotic disease without significant stenosis. Recommendations include increasing aspirin to 325 mg daily (from home dose of 81 mg), continuation of clopidogrel 75 mg daily and ezetimibe, initiation of PT/OT, and completion of CASSI and 30-day cardiac event monitor post-discharge. 06/08/25: Patient seen and examined this morning with no acute overnight events. She remains hemodynamically stable and at her cognitive baseline. Neurology was re- consulted for further recommendations regarding appropriate aspirin dosing. Intravenous fluids are being continued for management of acute kidney injury, most likely secondary to IV contrast exposure during yesterdays CT scan. White blood cell count remains elevated but is suspected to be related to recent prednisone pre-medication given for contrast allergy prophylaxis, as the patient remains afebrile and clinically without signs of active infection. She continues to participate in inpatient physical and occupational therapy with good effort and ongoing need for assistance in mobility and activities of daily living. The plan is for discharge to a custodial facility for continued rehabilitation and medical management once insurance authorization is obtained. She remains an appropriate candidate for short-term rehab based on current functional limitations, medical complexity, and continued therapy needs. - Review of Systems Constitutional: No Symptoms Eyes: No Symptoms Ears, Nose, & Throat: No Symptoms Respiratory: No Symptoms Cardiac: No Symptoms Abdominal/Gastrointestinal: No Symptoms Genitourinary Symptoms: No Symptoms Musculoskeletal: No Symptoms Skin: No Symptoms Neurological: Headache Psychological: No Symptoms Endocrine: No Symptoms Hematologic/Lymphatic: No Symptoms Immunological/Allergic: No Symptoms Objective Exam General Appearance: no apparent distress Neurologic Exam: alert, oriented x 3, cooperative, motor deficits (LUE/LLE) Skin Exam: normal color Wound Assessment: Skin/Wound Assessment Wound/Incision Assessment Start: 06/07/25 11:01 Text: Status: Active Freq: Q6H Protocol: Document 06/08/25 08:50 JV (Rec: 06/08/25 12:02 CHARIS [id number]) Wound/Incision Assessment Right Knee Wound Assessment Shift Assessment Wound Type Skin Tear Wound Stage Non Pressure Wound Dressing Status Dry & Intact Primary Dressing mepilex Secondary Dressing Gauze Pads Comment mepilex in place, CDI Left Elbow Wound Assessment Shift Assessment Wound Type Skin Tear Wound Stage Non Pressure Wound Dressing Status Dry & Intact Drainage Amount Minimal Drainage Description Sanguineous Primary Dressing tegaderm Comment Tegaderm in place, CDI Wound Photo Photo Taken No Eye Exam: PERRL Ears, Nose, Throat Exam: normal ENT inspection Neck Exam: normal inspection Respiratory Exam: normal breath sounds, lungs clear Cardiovascular Exam: regular rate/rhythm, normal heart sounds Gastrointestinal/Abdomen Exam: soft, normal bowel sounds Extremity Exam: normal inspection, limited range of motion Pelvic Exam: deferred Rectal Exam: deferred Objective Data Vital Signs: Vital Signs - 24 hr Temp Pulse Resp BP BP Pulse Ox 06/08/25 11:28 98.1 F 62 16 149/68 97 06/08/25 09:40 63 178/75 06/08/25 06:48 98.0 F 63 16 178/75 97 06/08/25 04:00 98.2 F 70 16 137/64 95 06/07/25 23:49 68 18 06/07/25 20:00 98.9 F 74 18 144/63 96 06/07/25 16:00 98.6 F 74 16 146/65 95 Pain Assessment - Last Documented Pain Intensity 6 Pain Scale Used 0-10 Pain Scale Intake and Output: Intake & Output 06/06/25 06/07/25 06/08/25 06/09/25 11:59 11:59 11:59 11:59 Intake Total 045 608 9473 380 Output Total 845 Balance -65 840 2951 380 Weight 88.4 kg Lab Results: Lab Results-Last 24 Hours 06/07/25 06/07/25 06/08/25 Range/Units 16:31 22:10 04:55 WBC 16.6 H (3.98-10.04) x10^3/uL RBC 3.53 L (3.93-5.22) x10^6/uL Hgb 10.6 L (11.2-15.7) g/dL Hct 33.6 L (34.1-44.9) % MCV 95.2 H (79.4-94.8) fL MCH 30.0 (25.6-32.2) pg MCHC 31.5 L (32.2-35.5) g/dL RDW 13.7 (11.7-14.4) % Plt Count 191 (182-369) x10^3/uL MPV 10.1 (9.4-12.3) fL Gran % 74.8 H (34.0-71.1) % Immature Gran % (Auto) 0.7 H (0.001-0.429) % Nucleat RBC Rel Count 0.0 (0.00-0.2) % Eos # (Auto) 0.01 L (0.04-0.36) x10^3/uL Immature Gran # (Auto) 0.11 H (0.001-0.031) x10^3u/L Absolute Lymphs (auto) 2.66 (1.18-3.74) x10^3/uL Absolute Monos (auto) 1.37 H (0.24-0.86) x10^3/uL Absolute Nucleated RBC 0.00 (0.00-0.012) x10^3u/L Lymphocytes % 16.0 L (19.3-51.7) % Monocytes % 8.3 (4.7-12.5) % Eosinophils % 0.1 L (0.7-5.8) % Basophils % 0.1 (0.1-1.2) % Absolute Granulocytes 12.41 H (1.56-6.13) x10^3/uL Basophils # 0.02 (0.01-0.08) x10^3/uL Sodium (135-145) mmol/L Potassium (3.5-5.1) mmol/L Chloride (98-107) mmol/L Carbon Dioxide (22-30) mmol/L Anion Gap (5-15) MEQ/L BUN (7-17) mg/dL Creatinine (0.52-1.04) mg/dL Estimated GFR ML/MIN Glucose (74-106) mg/dL POC Glucometer 351 H 209 H (74 to 106) mg/dL Calcium (8.4-10.2) mg/dL Magnesium (1.6-2.3) mg/dL Total Bilirubin (0.2-1.3) mg/dL AST (14-36) U/L ALT (0-35) U/L Alkaline Phosphatase (38-126) U/L Serum Total Protein (6.3-8.2) g/dL Albumin (3.5-5.0) g/dL 06/08/25 06/08/25 06/08/25 Range/Units 04:55 04:55 07:30 WBC (3.98-10.04) x10^3/uL RBC (3.93-5.22) x10^6/uL Hgb (11.2-15.7) g/dL Hct (34.1-44.9) % MCV (79.4-94.8) fL MCH (25.6-32.2) pg MCHC (32.2-35.5) g/dL RDW (11.7-14.4) % Plt Count (182-369) x10^3/uL MPV (9.4-12.3) fL Gran % (34.0-71.1) % Immature Gran % (Auto) (0.001-0.429) % Nucleat RBC Rel Count (0.00-0.2) % Eos # (Auto) (0.04-0.36) x10^3/uL Immature Gran # (Auto) (0.001-0.031) x10^3u/L Absolute Lymphs (auto) (1.18-3.74) x10^3/uL Absolute Monos (auto) (0.24-0.86) x10^3/uL Absolute Nucleated RBC (0.00-0.012) x10^3u/L Lymphocytes % (19.3-51.7) % Monocytes % (4.7-12.5) % Eosinophils % (0.7-5.8) % Basophils % (0.1-1.2) % Absolute Granulocytes (1.56-6.13) x10^3/uL Basophils # (0.01-0.08) x10^3/uL Sodium 138 (135-145) mmol/L Potassium 3.3 L (3.5-5.1) mmol/L Chloride 105 (98-107) mmol/L Carbon Dioxide 27 (22-30) mmol/L Anion Gap 10.1 (5-15) MEQ/L BUN 28 H (7-17) mg/dL Creatinine 1.24 H (0.52-1.04) mg/dL Estimated GFR 45.4 ML/MIN Glucose 158 H (74-106) mg/dL POC Glucometer 167 H (74 to 106) mg/dL Calcium 8.4 (8.4-10.2) mg/dL Magnesium 1.9 (1.6-2.3) mg/dL Total Bilirubin 1.10 (0.2-1.3) mg/dL AST 22 (14-36) U/L ALT 24 (0-35) U/L Alkaline Phosphatase 116 (38-126) U/L Serum Total Protein 5.9 L (6.3-8.2) g/dL Albumin 3.3 L (3.5-5.0) g/dL 06/08/25 06/08/25 Range/Units 10:20 11:36 WBC (3.98-10.04) x10^3/uL RBC (3.93-5.22) x10^6/uL Hgb (11.2-15.7) g/dL Hct (34.1-44.9) % MCV (79.4-94.8) fL MCH (25.6-32.2) pg MCHC (32.2-35.5) g/dL RDW (11.7-14.4) % Plt Count (182-369) x10^3/uL MPV (9.4-12.3) fL Gran % (34.0-71.1) % Immature Gran % (Auto) (0.001-0.429) % Nucleat RBC Rel Count (0.00-0.2) % Eos # (Auto) (0.04-0.36) x10^3/uL Immature Gran # (Auto) (0.001-0.031) x10^3u/L Absolute Lymphs (auto) (1.18-3.74) x10^3/uL Absolute Monos (auto) (0.24-0.86) x10^3/uL Absolute Nucleated RBC (0.00-0.012) x10^3u/L Lymphocytes % (19.3-51.7) % Monocytes % (4.7-12.5) % Eosinophils % (0.7-5.8) % Basophils % (0.1-1.2) % Absolute Granulocytes (1.56-6.13) x10^3/uL Basophils # (0.01-0.08) x10^3/uL Sodium (135-145) mmol/L Potassium 3.1 L (3.5-5.1) mmol/L Chloride (98-107) mmol/L Carbon Dioxide (22-30) mmol/L Anion Gap (5-15) MEQ/L BUN (7-17) mg/dL Creatinine (0.52-1.04) mg/dL Estimated GFR ML/MIN Glucose (74-106) mg/dL POC Glucometer 162 H (74 to 106) mg/dL Calcium (8.4-10.2) mg/dL Magnesium (1.6-2.3) mg/dL Total Bilirubin (0.2-1.3) mg/dL AST (14-36) U/L ALT (0-35) U/L Alkaline Phosphatase (38-126) U/L Serum Total Protein (6.3-8.2) g/dL Albumin (3.5-5.0) g/dL Radiology Exams: Radiology Procedures Category Date Time Status CT ANGIOGRAPHY NECK [CT] Routine Exams 06/07/25 09:00 Completed CTA HEAD W AND/OR WO CONTRAST [CT] Routine Exams 06/07/25 09:00 Completed Medications: Medications Generic Name Dose Route Start Last Admin Trade Name Freq PRN Reason Stop Dose Admin Acetaminophen 650 mg 06/05/25 16:44 06/08/25 06:00 Acetaminophen 325 Mg Tablet PO 07/05/25 16:43 650 mg Q4H PRN PRN Administration PAIN, FEVER, HEADACHE Aspirin 325 mg 06/08/25 10:00 06/08/25 09:39 Aspirin 325 Mg Tablet.Ec PO 07/08/25 09:59 325 mg QAM MARCELA Administration Atenolol 50 mg 06/05/25 17:00 06/08/25 09:40 Atenolol 50 Mg Tablet PO 07/05/25 16:59 50 mg DAILY MARCELA Administration Clopidogrel Bisulfate 75 mg 06/05/25 17:00 06/08/25 09:39 Clopidogrel Bisulfate 75 Mg Tablet PO 07/05/25 16:59 75 mg DAILY MARCELA Administration Cyclobenzaprine HCl 5 mg 06/05/25 16:55 Cyclobenzaprine Hcl 10 Mg Tablet PO 07/05/25 16:54 HS PRN PRN INSOMNIA Ezetimibe 10 mg 06/05/25 22:00 06/07/25 22:22 Ezetimibe 10 Mg Tab PO 07/05/25 21:59 10 mg HS MARCELA Administration Hydrochlorothiazide 25 mg 06/05/25 17:00 06/06/25 09:03 Hydrochlorothiazide 25 Mg Tablet PO 07/05/25 16:59 25 mg DAILY MARCELA Administration Sodium Chloride 1,000 mls @ 100 mls/hr 06/07/25 05:30 06/08/25 05:55 Sodium Chloride 0.9% 1000 Ml IV 07/07/25 05:29 100 mls/hr .Q10H MARCELA Administration Insulin Human Lispro 0 unit 06/07/25 05:25 06/07/25 22:22 Insulin Lispro 1 Unit SQ 07/07/25 05:24 6 unit UD PRN Administration HYPERGLYCEMIA Insulin Human Lispro 8 unit 06/07/25 12:00 06/08/25 12:46 Insulin Lispro 1 Unit SQ 07/07/25 11:59 8 unit TIDWM MARCELA Administration Levothyroxine Sodium 88 mcg 06/05/25 17:00 06/08/25 09:41 Levothyroxine Sodium 88 Mcg Tablet PO 07/05/25 16:59 88 mcg DAILY MARCELA Administration Losartan Potassium 100 mg 06/05/25 17:00 06/08/25 09:39 Losartan Potassium 50 Mg Tablet PO 07/05/25 16:59 100 mg DAILY MARCELA Administration Miscellaneous Information 1 each 06/05/25 17:00 Medication Intervention 1 Each Each 07/05/25 16:59 .RN TO CHECK MARCELA Non-Formulary Medication 1 each 06/07/25 10:00 06/07/25 17:19 Hold Metformin Products For 48hrs 06/09/25 10:00 1 each Q48H MARCELA Administration Ondansetron HCl 4 mg 06/05/25 16:44 Ondansetron Hcl 4 Mg/2 Ml Vial IV 07/05/25 16:43 Q6H PRN PRN NAUSEA/VOMITING Pantoprazole Sodium 40 mg 06/05/25 17:00 06/08/25 09:39 Protonix (Pantoprazole) 40 Mg Tablet PO 07/05/25 16:59 40 mg DAILY MARCELA Administration Potassium Chloride 20 meq 06/08/25 14:00 Potassium Chloride Tab 10 Meq Tab PO 06/08/25 20:01 Q2H MARCELA Discontinued Medications Generic Name Dose Route Start Last Admin Trade Name Freq PRN Reason Stop Dose Admin Acetaminophen 1,000 mg 06/05/25 15:10 06/05/25 15:20 Acetaminophen 500 Mg Tablet PO 06/05/25 15:11 1,000 mg STAT STA Administration Acetaminophen Confirm 06/05/25 15:19 Acetaminophen 500 Mg Tablet Administered 06/05/25 15:20 Dose 1,000 mg .ROUTE .STK-MED ONE Aspirin 81 mg 06/05/25 17:00 06/07/25 11:13 Aspirin 81 Mg Tablet.Ec PO 07/05/25 16:59 81 mg DAILY MARCELA Administration Diphenhydramine HCl 50 mg 06/07/25 08:00 06/07/25 08:22 Diphenhydramine Hcl 50 Mg/Ml Vial IV 06/07/25 08:01 50 mg 0800 MARCELA Administration Hydralazine HCl 10 mg 06/05/25 14:51 06/05/25 15:04 Hydralazine Hcl 20 Mg/Ml Vial IV 06/05/25 14:52 10 mg STAT ONE Administration Hydralazine HCl Confirm 06/05/25 14:56 Hydralazine Hcl 20 Mg/Ml Vial Administered 06/05/25 14:57 Dose 20 mg .ROUTE .STK-MED ONE Hydralazine HCl 5 mg 06/05/25 16:44 Hydralazine Hcl 20 Mg/Ml Vial IV 07/05/25 16:43 Q4HPRN PRN HYPERTENSION Ceftriaxone Sodium 1 gm in 100 mls @ 200 mls/hr 06/06/25 10:00 06/05/25 15:16 Rocephin 1 Gm / 100 Ml Nacl IV 07/06/25 09:59 200 mls/hr Q24H10 MARCELA 200 mls/hr Administration Ceftriaxone Sodium Confirm 06/05/25 14:57 Rocephin 1 Gm / 100 Ml Nacl Administered 06/05/25 14:58 Dose 1 gm in 100 mls @ ud IV .STK-MED ONE Ceftriaxone Sodium 1 gm in 100 mls @ 200 mls/hr 06/06/25 10:00 Rocephin 1 Gm / 100 Ml Nacl IV 07/06/25 09:59 Q24H10 [facility] Insulin Human Lispro 0 unit 06/05/25 16:44 06/06/25 21:36 Insulin Lispro 1 Unit SQ 07/05/25 16:43 9 unit UD PRN Administration HYPERGLYCEMIA Lidocaine 1 patch 06/06/25 04:30 06/06/25 04:28 Lidocaine Hcl 1 Patch Patch TOP 06/06/25 04:31 1 patch ONCE ONE Administration Potassium Chloride 40 meq 06/08/25 08:03 06/08/25 08:52 Potassium Chloride Tab 10 Meq Tab PO 06/08/25 08:04 40 meq STAT ONE Administration Prednisone 50 mg 06/06/25 18:00 06/07/25 08:22 Prednisone 20 Mg Tablet PO 06/07/25 08:01 50 mg 0200,0800,1800 MARCELA Administration Multi-Disciplinary Progress Notes: Multi-Disciplinary Progress Notes 06/08/25 13:07 Occupational Therapy Note by Jimy (L#[id number])Bridgette OCCUPATIONAL THERAPY TXM: UPON OT ARRIVAL, PATIENT SITTING UP IN THE RECLINER WITH FAMILY PRESENT IN ROOM. PATIENT IS AGREEABLE TO OT TXM SESSION WITH FAMILY PRESENT. PATIENT ENGAGED IN ISOLATED DIGIT OPPOSITION AND DEXTERITY EXERCISES WITH LEFT HAND TO FACILITATE COORDINATION. SHE THEN ENGAGED IN PICKING UP WATER CUP WITH LEFT HAND AND BRINGING TO MIDLINE FOR 2 SET X 10 REPS; INITIALLY 2 DROPS BUT PRECISION IMPROVES WITH VERBAL CUES ON ACTIVITY PACING AND WATCHING LEFT HAND COMPLETE TASK. SHE THEN ENGAGED IN LEFT HAND COORDINATION WITH FINGER COUNTING 1-5 FORWARD AND REVERSE. MALI ENGAGED IN SELF-CARE ACTIVITY OF TOILETING TASK REQUIRING MIN ASSIST FOR SIT<>sTAND T/F (HOLDING LEFT HAND ONTO CHAIR IT KEPT SLIPPING), CGA DURING FUNCTIONAL MOBILITY AND TOILETING T/F. PATIENT COMPLETES HYGIENE AND MANAGING DEPENDS WITH CGA. VERBAL CUES REQUIRED THROUGHOUT SESSION FOR SAFETY INSIGHT. SHE COMPLETES HAND HYGIENE SITTING IN RECLINER FOLLOWED BY LUNCH TRAY SET UP. MOD VERBAL CUES PROVIDED ON SEQUENCING AND TECHNIQUES WITH LEFT UE DURING TASK WITH IMPROVED INDEPENDENCE OBSERVED. ALL NEEDS MET AT END OF SESSION WITH NO QUESTION FROM PATIENT OR FAMILY; CALL LIGHT ON PATIENT'S LAP. Initialized on 06/08/25 13:07 - END OF NOTE Assessment/Plan (1) Acute stroke due to ischemia Current Visit: Yes Status: Acute Assessment & Plan: - positional dizziness and lightheadedness upon standing, raising concern for an orthostatic component, though neurologic cause cannot be excluded given left arm paresthesia. -CT head negative for acute process, prior infarct noted. -Tele -MRI brain and CTA head/neck to evaluate for ischemia or vascular stenosis -Echocardiogram -Orthostatic vitals -Neurology consultation for evaluation of transient left arm numbness and prior stroke. -Neuro checks every 4 hours; fall precautions. -PT/OT evaluation for balance and gait safety. 06/06: -MRI findings revealed a small 11 7 mm focus of acute ischemia in the right thalamus without hemorrhage or mass effect, along with atrophy, chronic microvascular ischemic changes, and remote temporal lobe infarct. -Carotid ultrasound demonstrated mild to minimal scattered atherosclerotic disease bilaterally with no hemodynamically significant stenosis. -Neurology consulted - agree with plan- continue ASA/Plavix/Zetia- patient will need CASSI as OP and 30 day event monitor placed on discharge with cardiology/neurology follow up - Will get CTA head/neck- patient will need pre-medicated due to allergy per protocol - Prednisone 50mg at 15hours, 7hours, and 1 hour prior to exam at 9 a.m . Benadryl 50mg 1 hour prior to exams. Nursing notified and pharmacy has scheduled premedication 06/07: -CMP/CBC reviewed -Neurology documentation reviewed - agree with plan -CTA head/neck reviewed mild bilateral atherosclerotic disease without significant stenosis;Increase aspirin to 325 mg daily (from home 81 mg);Continue clopidogrel 75 mg daily and ezetimibe. -Arrange CASSI and 30-day event monitor post-discharge for further embolic source evaluation. -Arrange SNF placement for rehab at [facility]- pending authorization -Patient demonstrates persistent LUE/LLE weakness, impaired balance, and decreased functional independence in ambulation and ADLs. Requires ongoing skilled PT/OT for gait training, strengthening, and safety. SNF placement indicated for continued multidisciplinary rehabilitation and assistance with medication management, monitoring, and completion of diagnostic follow-up. 06/08: -Neurology re-consulted regarding need for ASA 325mg- will continue at 81mg for now -SNF pending -Continue plan as above (2) Tingling of left upper extremity Current Visit: Yes Status: Acute Assessment & Plan: -see near syncope for plan Code(s): R20.2 - PARESTHESIA OF SKIN (3) Hypertensive urgency Current Visit: Yes Status: Acute Assessment & Plan: -SBP peaked at 225 mmHg; improved following hydralazine 10 mg IV. No evidence of end-organ damage. -Resume home antihypertensives -PRN IV hydralazine for SBP >180 mmHg. -Avoid rapid BP reduction; gradual goal <160 systolic within 24 hours. -Monitor neurologic status during BP management. 06/06: - BP now stable with home medications Code(s): I16.0 - HYPERTENSIVE URGENCY (4) Fall Current Visit: Yes Status: Acute Assessment & Plan: -CT head showed no acute intracranial process, but did reveal remote right temporal lobe encephalomalacia consistent with prior infarct. - Chest X-ray, bilateral knee, and tibia/fibula X-rays showed no acute findings -PT/OT -See plan for near syncopal episode 06/06: -PT/OT have evaluated patient with recs for continued OP therapy 06/07: --Arrange SNF placement for rehab at [facility]- pending authorization -Patient demonstrates persistent LUE/LLE weakness, impaired balance, and decreased functional independence in ambulation and ADLs. Requires ongoing skilled PT/OT for gait training, strengthening, and safety. SNF placement indicated for continued multidisciplinary rehabilitation and assistance with medication management, monitoring, and completion of diagnostic follow-up. (2) Tingling of left upper extremity Code(s): W19.XXXA - UNSPECIFIED FALL, INITIAL ENCOUNTER (5) Transaminitis Current Visit: Yes Status: Acute Assessment & Plan: -Mild cholestatic pattern without symptoms. -CMP -trend -Review medications for hepatotoxicity. -Consider RUQ ultrasound if bilirubin or ALP rises 06/06: -Reviewed -Tbili down-trending now at 1.60 AST and ALT WNL, ALP down-trending 06/07: -Stable with TBili at 1.60 AST, ALT wnl ALP at 150 06/08: -AST/ALT/Tbili/ALP reviewed and WNL - resolved Code(s): R74.01 - ELEVATION OF LEVELS OF LIVER TRANSAMINASE LEVELS (6) DMII (diabetes mellitus, type 2) Current Visit: Yes Status: Acute Assessment & Plan: -ADA diet -SSI increased to HD- add meal time 8 units- blood glucose level up due to pre treatment with prednisone for CT scan -monitor closely -A1c 7.09 good control (7) Hypothyroid Current Visit: Yes Status: Acute Assessment & Plan: -Check TSH -Continue levothyroxine- adjust as needed Code(s): E03.9 - HYPOTHYROIDISM, UNSPECIFIED (8) Remote history of stroke Current Visit: Yes Status: Acute Assessment & Plan: -continue plavix, ASA, and Zetia Code(s): Z86.73 - PRSNL HX OF TIA (TIA), AND CEREB INFRC W/O RESID DEFICITS (9) HLD (hyperlipidemia) Current Visit: Yes Status: Acute Assessment & Plan: -continue zetia Code(s): E78.5 - HYPERLIPIDEMIA, UNSPECIFIED (10) Arthritis Current Visit: Yes Status: Acute Assessment & Plan: -continue home meds Code(s): M19.90 - UNSPECIFIED OSTEOARTHRITIS, UNSPECIFIED SITE (11) UTI (urinary tract infection) Current Visit: Yes Status: Acute Qualifiers: Urinary tract infection type: site unspecified Hematuria presence: without hematuria Qualified Code(s): N39.0 - Urinary tract infection, site not specified Assessment & Plan: -treated in ED with ceftriaxone, UA with demonstrated moderate bacteria without pyuria or nitrites. -Patient asymptomatic -Hold further antibiotics- follow culture 06/06: -Negative Ucult - no symptoms VTE: Plavix/ASA/SCD PPI: protonix Dispo: 1-2 days Code status: Full Code Plan of care time spent > 40 mins Code(s): I63.9 - CEREBRAL INFARCTION, UNSPECIFIED (2) Near syncope Current Visit: Yes Status: Acute (3) Tingling of left upper extremity Current Visit: Yes Status: Acute Code(s): R20.2 - PARESTHESIA OF SKIN (4) Hypertensive urgency Current Visit: Yes Status: Acute Code(s): I16.0 - HYPERTENSIVE URGENCY (5) Fall Current Visit: Yes Status: Acute Code(s): W19.XXXA - UNSPECIFIED FALL, INITIAL ENCOUNTER (6) Transaminitis Current Visit: Yes Status: Acute Code(s): R74.01 - ELEVATION OF LEVELS OF LIVER TRANSAMINASE LEVELS (7) DMII (diabetes mellitus, type 2) Current Visit: Yes Status: Acute (8) Hypothyroid Current Visit: Yes Status: Acute Code(s): E03.9 - HYPOTHYROIDISM, UNSPECIFIED (9) Remote history of stroke Current Visit: Yes Status: Acute Code(s): Z86.73 - PRSNL HX OF TIA (TIA), AND CEREB INFRC W/O RESID DEFICITS (10) HLD (hyperlipidemia) Current Visit: Yes Status: Acute Code(s): E78.5 - HYPERLIPIDEMIA, UNSPECIFIED (11) Arthritis Current Visit: Yes Status: Acute Code(s): M19.90 - UNSPECIFIED OSTEOARTHRITIS, UNSPECIFIED SITE (12) UTI (urinary tract infection) Current Visit: Yes Status: Acute Qualifiers: Urinary tract infection type: site unspecified Hematuria presence: without hematuria Qualified Code(s): N39.0 - Urinary tract infection, site not specified Code(s): N39.0 - URINARY TRACT INFECTION, SITE NOT SPECIFIED
[2025-06-08 16:38] LABS: Calcium 8.5 mg/dL (8.4-10.2); Carbon Dioxide 28.0 mmol/L (22-30); Creatinine 1 1.28 mg/dL (0.52-1.04); EST GLOMERULAR FILTRATION RATE 43.7 ML/MIN; Glucose 217.0 mg/dL (74-106); Potassium 3.6 mmol/L (3.5-5.1); SGOT/AST 33.0 U/L (14-36); SGPT/ALT 32.0 U/L (0-35); Total Protein 6.6 g/dL (6.3-8.2)
--- NOTE | 2025-06-09 05:37 | PCM.NOTE ---
Date and Time: 06/09/25 0536 Subjective Assessment: Ms. Villarreal is a 75-year-old female with a history of prior cerebrovascular accident, hypertension, hyperlipidemia, type 2 diabetes mellitus, hypothyroidism, gastroesophageal reflux disease, and arthritis, who presented to the emergency department on 06/05/25 after experiencing two falls earlier in the day. The first occurred upon standing to use the restroom when she became lightheaded and dizzy, and the second when her walker rolled forward, causing her to lose balance. She denied loss of consciousness or head strike but reported striking her back. Since then, she has experienced intermittent left arm numbness without other focal neurological symptoms. On arrival, she was alert and oriented, hemodynamically stable aside from severe hypertension (BP 225/79 mmHg), which improved with IV hydralazine and is now well controlled with resumption of her home antihypertensive medications. Neurologic examination revealed no focal weakness or deficits. CT head showed no acute intracranial process but did demonstrate remote right temporal lobe encephalomalacia consistent with prior infarct. MRI brain revealed a small 11 7 mm focus of acute ischemia in the right thalamus without hemorrhage or mass effect, along with atrophy, chronic microvascular ischemic changes, and remote temporal lobe infarct. Carotid ultrasound demonstrated mild to minimal scattered atherosclerotic disease bilaterally with no hemodynamically significant stenosis. Laboratory studies were overall unremarkable, with total bilirubin now 1.6 mg/dL (improved from 2.0), AST and ALT within normal limits, and alkaline phosphatase 144 U/L (reduced from 162). Electrolytes and renal function remain normal, and urine culture was negative despite moderate bacteria on urinalysis. Neurology reviewed the imaging and recommended a CTA of the head and neck, for which the patient will be premedicated due to her iodine contrast allergy, and advised continuation of Plavix, aspirin, and Zetia. They also recommended an outpatient CASSI (not available at this facility) and a 30-day cardiac event monitor to be placed prior to discharge with cardiology follow-up. Occupational therapy evaluated the patient and recommended outpatient therapy, which will be arranged prior to discharge. Possible discharge tomorrow is anticipated pending CTA results and neurology follow-up. 06/06/25: Met with patient bedside. Endorses continued numbness and weakness in her LUE. PT/OT has evaluated patient with recommendations for OP PT/OT. Neurology consulted on MRI findings as stated above. Plan for potential discharge tomorrow with OP follow up with cardiology and neurology pending CTA head/neck and further recommendations from neurology. 06/07/25: Patient evaluated at bedside and continues to demonstrate persistent left upper and lower extremity weakness, resulting in impaired mobility and decreased ability to perform activities of daily living independently. She requires continued skilled therapy for strength, balance, and functional recovery following recent cerebrovascular event workup. Patient expresses preference for discharge to [facility] for skilled rehabilitation. Case management is coordinating placement and authorization. Neurology re-consulted with CTA head and neck showing mild bilateral atherosclerotic disease without significant stenosis. Recommendations include increasing aspirin to 325 mg daily (from home dose of 81 mg), continuation of clopidogrel 75 mg daily and ezetimibe, initiation of PT/OT, and completion of CASSI and 30-day cardiac event monitor post-discharge. 06/08/25: Patient seen and examined this morning with no acute overnight events. She remains hemodynamically stable and at her cognitive baseline. Neurology was re- consulted for further recommendations regarding appropriate aspirin dosing. Intravenous fluids are being continued for management of acute kidney injury, most likely secondary to IV contrast exposure during yesterdays CT scan. White blood cell count remains elevated but is suspected to be related to recent prednisone pre-medication given for contrast allergy prophylaxis, as the patient remains afebrile and clinically without signs of active infection. She continues to participate in inpatient physical and occupational therapy with good effort and ongoing need for assistance in mobility and activities of daily living. The plan is for [facility] a [facility] facility for continued rehabilitation and medical management once insurance authorization is obtained. She remains an appropriate candidate for short-term rehab based on current functional limitations, medical complexity, and continued therapy needs. 06/09/25: Met with patient. She reports mild back pain but no other complaints this morning. SNF currently pending. She remains an appropriate candidate for short- term rehab based on current functional limitations, medical complexity, and continued therapy needs. Neurology re-consulted, with elevated kidney function - they agree for patient to remain on 81mg aspirin daily with plavix/zetia. Aspirin dosing changed to 81mg daily from 325mg daily. - Review of Systems Constitutional: No Symptoms Eyes: No Symptoms Ears, Nose, & Throat: No Symptoms Respiratory: No Symptoms Cardiac: No Symptoms Abdominal/Gastrointestinal: No Symptoms Genitourinary Symptoms: No Symptoms Musculoskeletal: Back Pain Skin: No Symptoms Neurological: No Symptoms Psychological: No Symptoms Endocrine: No Symptoms Hematologic/Lymphatic: No Symptoms Immunological/Allergic: No Symptoms Objective Exam General Appearance: no apparent distress Neurologic Exam: alert, oriented x 3, cooperative Skin Exam: normal color Wound Assessment: Skin/Wound Assessment Wound/Incision Assessment Start: 06/07/25 11:01 Text: Status: Active Freq: Q6H Protocol: Document 06/09/25 04:00 KD (Rec: 06/09/25 05:08 KD [id number]) Wound/Incision Assessment Right Knee Wound Assessment Shift Assessment Wound Type Skin Tear Wound Stage Non Pressure Wound Dressing Status Dry & Intact Primary Dressing mepilex Secondary Dressing Gauze Pads Comment mepilex in place, CDI - remains true Left Elbow Wound Assessment Shift Assessment Wound Type Skin Tear Wound Stage Non Pressure Wound Dressing Status Dry & Intact Drainage Amount Minimal Drainage Description Sanguineous Primary Dressing tegaderm Comment Tegaderm in place, CDI - remains true Wound Photo Photo Taken No Eye Exam: PERRL Ears, Nose, Throat Exam: normal ENT inspection Neck Exam: normal inspection Respiratory Exam: normal breath sounds, lungs clear Cardiovascular Exam: regular rate/rhythm, normal heart sounds Gastrointestinal/Abdomen Exam: soft, normal bowel sounds Extremity Exam: normal inspection Back Exam: normal inspection Pelvic Exam: deferred Rectal Exam: deferred Objective Data Vital Signs: Vital Signs - 24 hr Temp Pulse Resp BP BP Pulse Ox 06/09/25 04:00 97.7 F 74 21 199/77 96 06/08/25 23:30 98.1 F 73 20 128/59 95 06/08/25 19:49 98.6 F 69 20 145/65 99 06/08/25 16:00 97.8 F 60 16 140/65 98 06/08/25 11:28 98.1 F 62 16 149/68 97 06/08/25 09:40 63 178/75 06/08/25 06:48 98.0 F 63 16 178/75 97 Pain Assessment - Last Documented Pain Intensity 8 [facility] Intake and Output: Intake & Output 06/06/25 06/07/25 06/08/25 06/09/25 11:59 11:59 11:59 11:59 Intake Total 164 870 6302 4521 Output Total 845 Balance -65 840 2951 4521 Weight 88.4 kg Lab Results: Lab Results-Last 24 Hours 06/08/25 06/08/25 06/08/25 Range/Units 04:55 04:55 07:30 Sodium 138 (135-145) mmol/L Potassium 3.3 L (3.5-5.1) mmol/L Chloride 105 (98-107) mmol/L Carbon Dioxide 27 (22-30) mmol/L Anion Gap 10.1 (5-15) MEQ/L BUN 28 H (7-17) mg/dL Creatinine 1.24 H (0.52-1.04) mg/dL Estimated GFR 45.4 ML/MIN Glucose 158 H (74-106) mg/dL POC Glucometer 167 H (74 to 106) mg/dL Calcium 8.4 (8.4-10.2) mg/dL Magnesium 1.9 (1.6-2.3) mg/dL Total Bilirubin 1.10 (0.2-1.3) mg/dL AST 22 (14-36) U/L ALT 24 (0-35) U/L Alkaline Phosphatase 116 (38-126) U/L Serum Total Protein 5.9 L (6.3-8.2) g/dL Albumin 3.3 L (3.5-5.0) g/dL 06/08/25 06/08/25 06/08/25 Range/Units 10:20 11:36 16:10 Sodium 138 (135-145) mmol/L Potassium 3.1 L 3.6 (3.5-5.1) mmol/L Chloride 103 (98-107) mmol/L Carbon Dioxide 28 (22-30) mmol/L Anion Gap 10.9 (5-15) MEQ/L BUN 29 H (7-17) mg/dL Creatinine 1.28 H (0.52-1.04) mg/dL Estimated GFR 43.7 ML/MIN Glucose 217 H (74-106) mg/dL POC Glucometer 162 H (74 to 106) mg/dL Calcium 8.5 (8.4-10.2) mg/dL Magnesium (1.6-2.3) mg/dL Total Bilirubin 1.00 (0.2-1.3) mg/dL AST 33 (14-36) U/L ALT 32 (0-35) U/L Alkaline Phosphatase 116 (38-126) U/L Serum Total Protein 6.6 (6.3-8.2) g/dL Albumin 3.9 (3.5-5.0) g/dL 06/08/25 06/08/25 06/08/25 Range/Units 16:16 19:58 21:13 Sodium (135-145) mmol/L Potassium 4.0 (3.5-5.1) mmol/L Chloride (98-107) mmol/L Carbon Dioxide (22-30) mmol/L Anion Gap (5-15) MEQ/L BUN (7-17) mg/dL Creatinine (0.52-1.04) mg/dL Estimated GFR ML/MIN Glucose (74-106) mg/dL POC Glucometer 212 H 131 H (74 to 106) mg/dL Calcium (8.4-10.2) mg/dL Magnesium (1.6-2.3) mg/dL Total Bilirubin (0.2-1.3) mg/dL AST (14-36) U/L ALT (0-35) U/L Alkaline Phosphatase (38-126) U/L Serum Total Protein (6.3-8.2) g/dL Albumin (3.5-5.0) g/dL 06/09/25 Range/Units 00:35 Sodium (135-145) mmol/L Potassium 4.6 (3.5-5.1) mmol/L Chloride (98-107) mmol/L Carbon Dioxide (22-30) mmol/L Anion Gap (5-15) MEQ/L BUN (7-17) mg/dL Creatinine (0.52-1.04) mg/dL Estimated GFR ML/MIN Glucose (74-106) mg/dL POC Glucometer (74 to 106) mg/dL Calcium (8.4-10.2) mg/dL Magnesium (1.6-2.3) mg/dL Total Bilirubin (0.2-1.3) mg/dL AST (14-36) U/L ALT (0-35) U/L Alkaline Phosphatase (38-126) U/L Serum Total Protein (6.3-8.2) g/dL Albumin (3.5-5.0) g/dL Radiology Exams: Radiology Procedures Category Date Time Status CT ANGIOGRAPHY NECK [CT] Routine Exams 06/07/25 09:00 Completed CTA HEAD W AND/OR WO CONTRAST [CT] Routine Exams 06/07/25 09:00 Completed Medications: Medications Generic Name Dose Route Start Last Admin Trade Name Jonathon PRN Reason Stop Dose Admin Acetaminophen 650 mg 06/05/25 16:44 06/09/25 03:24 Acetaminophen 325 Mg Tablet PO 07/05/25 16:43 650 mg Q4H PRN PRN Administration PAIN, FEVER, HEADACHE Aspirin 81 mg 06/09/25 10:00 Aspirin 81 Mg Tablet.Ec PO 07/09/25 09:59 QAM MARCELA Atenolol 50 mg 06/05/25 17:00 06/08/25 09:40 Atenolol 50 Mg Tablet PO 07/05/25 16:59 50 mg DAILY MARCELA Administration Clopidogrel Bisulfate 75 mg 06/05/25 17:00 06/08/25 09:39 Clopidogrel Bisulfate 75 Mg Tablet PO 07/05/25 16:59 75 mg DAILY MARCELA Administration Cyclobenzaprine HCl 5 mg 06/05/25 16:55 Cyclobenzaprine Hcl 10 Mg Tablet PO 07/05/25 16:54 HS PRN PRN INSOMNIA Ezetimibe 10 mg 06/05/25 22:00 06/08/25 21:47 Ezetimibe 10 Mg Tab PO 07/05/25 21:59 10 mg HS MARCELA Administration Hydrochlorothiazide 25 mg 06/05/25 17:00 06/06/25 09:03 Hydrochlorothiazide 25 Mg Tablet PO 07/05/25 16:59 25 mg DAILY MARCELA Administration Sodium Chloride 1,000 mls @ 100 mls/hr 06/07/25 05:30 06/08/25 18:07 Sodium Chloride 0.9% 1000 Ml IV 07/07/25 05:29 100 mls/hr .Q10H MARCELA Administration Insulin Human Lispro 0 unit 06/07/25 05:25 06/08/25 17:17 Insulin Lispro 1 Unit SQ 07/07/25 05:24 6 unit UD PRN Administration HYPERGLYCEMIA Insulin Human Lispro 8 unit 06/07/25 12:00 06/08/25 17:16 Insulin Lispro 1 Unit SQ 07/07/25 11:59 8 unit TIDWM MARCELA Administration Levothyroxine Sodium 88 mcg 06/05/25 17:00 06/08/25 09:41 Levothyroxine Sodium 88 Mcg Tablet PO 07/05/25 16:59 88 mcg DAILY MARCELA Administration Losartan Potassium 100 mg 06/05/25 17:00 06/08/25 09:39 Losartan Potassium 50 Mg Tablet PO 07/05/25 16:59 100 mg DAILY MARCELA Administration Miscellaneous Information 1 each 06/05/25 17:00 Medication Intervention 1 Each Each 07/05/25 16:59 .RN TO CHECK MARCELA Non-Formulary Medication 1 each 06/07/25 10:00 06/07/25 17:19 Hold Metformin Products For 48hrs 06/09/25 10:00 1 each Q48H MARCELA Administration Ondansetron HCl 4 mg 06/05/25 16:44 Ondansetron Hcl 4 Mg/2 Ml Vial IV 07/05/25 16:43 Q6H PRN PRN NAUSEA/VOMITING Pantoprazole Sodium 40 mg 06/05/25 17:00 06/08/25 09:39 Protonix (Pantoprazole) 40 Mg Tablet PO 07/05/25 16:59 40 mg DAILY MARCELA Administration Discontinued Medications Generic Name Dose Route Start Last Admin Trade Name Freq PRN Reason Stop Dose Admin Acetaminophen 1,000 mg 06/05/25 15:10 06/05/25 15:20 Acetaminophen 500 Mg Tablet PO 06/05/25 15:11 1,000 mg STAT STA Administration Acetaminophen Confirm 06/05/25 15:19 Acetaminophen 500 Mg Tablet Administered 06/05/25 15:20 Dose 1,000 mg .ROUTE .STK-MED ONE Aspirin 81 mg 06/05/25 17:00 06/07/25 11:13 Aspirin 81 Mg Tablet.Ec PO 07/05/25 16:59 81 mg DAILY MARCELA Administration Aspirin 325 mg 06/08/25 10:00 06/08/25 09:39 Aspirin 325 Mg Tablet.Ec PO 07/08/25 09:59 325 mg QAM MARCELA Administration Aspirin 81 mg 06/08/25 14:18 Aspirin 325 Mg Tablet.Ec PO 07/08/25 09:59 QAM MARCELA Diphenhydramine HCl 50 mg 06/07/25 08:00 06/07/25 08:22 Diphenhydramine Hcl 50 Mg/Ml Vial IV 06/07/25 08:01 50 mg 0800 MARCELA Administration Hydralazine HCl 10 mg 06/05/25 14:51 06/05/25 15:04 Hydralazine Hcl 20 Mg/Ml Vial IV 06/05/25 14:52 10 mg STAT ONE Administration Hydralazine HCl Confirm 06/05/25 14:56 Hydralazine Hcl 20 Mg/Ml Vial Administered 06/05/25 14:57 Dose 20 mg .ROUTE .STK-MED ONE Hydralazine HCl 5 mg 06/05/25 16:44 Hydralazine Hcl 20 Mg/Ml Vial IV 07/05/25 16:43 Q4HPRN PRN HYPERTENSION Ceftriaxone Sodium 1 gm in 100 mls @ 200 mls/hr 06/06/25 10:00 06/05/25 15:16 Rocephin 1 Gm / 100 Ml Nacl IV 07/06/25 09:59 200 mls/hr Q24H10 MARCELA 200 mls/hr Administration Ceftriaxone Sodium Confirm 06/05/25 14:57 Rocephin 1 Gm / 100 Ml Nacl Administered 06/05/25 14:58 Dose 1 gm in 100 mls @ ud IV .STK-MED ONE Ceftriaxone Sodium 1 gm in 100 mls @ 200 mls/hr 06/06/25 10:00 Rocephin 1 Gm / 100 Ml Nacl IV 07/06/25 09:59 Q24H10 MARCELA Insulin Human Lispro 0 unit 06/05/25 16:44 06/06/25 21:36 Insulin Lispro 1 Unit SQ 07/05/25 16:43 9 unit UD PRN Administration HYPERGLYCEMIA Lidocaine 1 patch 06/06/25 04:30 06/06/25 04:28 Lidocaine Hcl 1 Patch Patch TOP 06/06/25 04:31 1 patch ONCE ONE Administration Potassium Chloride 40 meq 06/08/25 08:03 06/08/25 08:52 Potassium Chloride Tab 10 Meq Tab PO 06/08/25 08:04 40 meq STAT ONE Administration Potassium Chloride 20 meq 06/08/25 14:00 06/08/25 20:01 Potassium Chloride Tab 10 Meq Tab PO 06/08/25 20:01 20 meq Q2H MARCELA Administration Prednisone 50 mg 06/06/25 18:00 06/07/25 08:22 Prednisone 20 Mg Tablet PO 06/07/25 08:01 50 mg 0200,0800,1800 MARCELA Administration Multi-Disciplinary Progress Notes: Multi-Disciplinary Progress Notes 06/08/25 15:19 Case Management Note by Dahiana Motta S/W JESSICA-INSURANCE AUTH AT [facility] STILL PENDING AT THIS TIME Initialized on 06/08/25 15:19 - END OF NOTE 06/08/25 13:07 Occupational Therapy Note by Jimy (L#[id number])Bridgette OCCUPATIONAL THERAPY TXM: UPON OT ARRIVAL, PATIENT SITTING UP IN THE RECLINER WITH FAMILY PRESENT IN ROOM. PATIENT IS AGREEABLE TO OT TXM SESSION WITH FAMILY PRESENT. PATIENT ENGAGED IN ISOLATED DIGIT OPPOSITION AND DEXTERITY EXERCISES WITH LEFT HAND TO FACILITATE COORDINATION. SHE THEN ENGAGED IN PICKING UP WATER CUP WITH LEFT HAND AND BRINGING TO MIDLINE FOR 2 SET X 10 REPS; INITIALLY 2 DROPS BUT PRECISION IMPROVES WITH VERBAL CUES ON ACTIVITY PACING AND WATCHING LEFT HAND COMPLETE TASK. SHE THEN ENGAGED IN LEFT HAND COORDINATION WITH FINGER COUNTING 1-5 FORWARD AND REVERSE. MALI ENGAGED IN SELF-CARE ACTIVITY OF TOILETING TASK REQUIRING MIN ASSIST FOR SIT<>sTAND T/F (HOLDING LEFT HAND ONTO CHAIR IT KEPT SLIPPING), CGA DURING FUNCTIONAL MOBILITY AND TOILETING T/F. PATIENT COMPLETES HYGIENE AND MANAGING DEPENDS WITH CGA. VERBAL CUES REQUIRED THROUGHOUT SESSION FOR SAFETY INSIGHT. SHE COMPLETES HAND HYGIENE SITTING IN RECLINER FOLLOWED BY LUNCH TRAY SET UP. MOD VERBAL CUES PROVIDED ON SEQUENCING AND TECHNIQUES WITH LEFT UE DURING TASK WITH IMPROVED INDEPENDENCE OBSERVED. ALL NEEDS MET AT END OF SESSION WITH NO QUESTION FROM PATIENT OR FAMILY; CALL LIGHT ON PATIENT'S LAP. Initialized on 06/08/25 13:07 - END OF NOTE 06/08/25 12:30 (created 06/08/25 14:51) Case Management Note by Dahiana Motta S/Jn LOPEZ- AT [facility]- INSURANCE AUTHORIZATION STILL PENDING AT THIS TIME Initialized on 06/08/25 14:51 - END OF NOTE 06/08/25 10:00 (created 06/08/25 14:49) Case Management Note by Dahiana Motta [facility] HAS ACCEPTED AND AUTH IS PENDING AT THIS TIME- PATIENT STILL CONTINUES TO TRANSITION TO SNF FOR REHAB PRIOR TO RETURNING HOME. FAMILY REPORTS THEY CAN PROVIDE TRANSPORT OVER THE WEEKEND IF NEEDED. PATIENT CANNOT TRANSFER TO [facility] UNTIL THEY HAVE RECEIVED AUTHORIZATION FROM INSURANCE Initialized on 06/08/25 14:49 - END OF NOTE Assessment/Plan (1) Acute stroke due to ischemia Current Visit: Yes Status: Acute Assessment & Plan: - positional dizziness and lightheadedness upon standing, raising concern for an orthostatic component, though neurologic cause cannot be excluded given left arm paresthesia. -CT head negative for acute process, prior infarct noted. -Tele -MRI brain and CTA head/neck to evaluate for ischemia or vascular stenosis -Echocardiogram -Orthostatic vitals -Neurology consultation for evaluation of transient left arm numbness and prior stroke. -Neuro checks every 4 hours; fall precautions. -PT/OT evaluation for balance and gait safety. 06/06: -MRI findings revealed a small 11 7 mm focus of acute ischemia in the right thalamus without hemorrhage or mass effect, along with atrophy, chronic microvascular ischemic changes, and remote temporal lobe infarct. -Carotid ultrasound demonstrated mild to minimal scattered atherosclerotic disease bilaterally with no hemodynamically significant stenosis. -Neurology consulted - agree with plan- continue ASA/Plavix/Zetia- patient will need CASSI as OP and 30 day event monitor placed on discharge with car diology/neurology follow up - Will get CTA head/neck- patient will need pre- medicated due to allergy per protocol - Prednisone 50mg at 15hours, 7hours, and 1 hour prior to exam at 9 a.m . Benadryl 50mg 1 hour prior to exams. Nursing notified and pharmacy has scheduled premedication 06/07: -CMP/CBC reviewed -Neurology documentation reviewed - agree with plan -CTA head/neck reviewed mild bilateral atherosclerotic disease without significant stenosis;Increase aspirin to 325 mg daily (from home 81 mg);Continue clopidogrel 75 mg daily and ezetimibe. -Arrange CASSI and 30-day event monitor post-discharge for further embolic source evaluation. -Arrange SNF placement for rehab at [facility]- pending authorization -Patient demonstrates persistent LUE/LLE weakness, impaired balance, and decreased funct ional independence in ambulation and ADLs. Requires ongoing skilled PT/OT for gait training, strengthening, and safety. SNF placement indicated for continued multidisciplinary rehabilitation and assistance with medication management, monitoring, and completion of diagnostic follow-up. 06/08: -Neurology re-consulted regarding need for ASA 325mg- will continue at 81mg for now -SNF pending -Continue plan as above 06/09: -Neurology agrees to 81mg ASA daily kidney function -SNF pending -Requires ongoing skilled PT/OT for gait training, strengthening, and safety. (2) Tingling of left upper extremity Current Visit: Yes Status: Acute Assessment & Plan: -see near syncope for plan Code(s): R20.2 - PARESTHESIA OF SKIN FOREST -Most likely secondary to Contrast Dye- improving with IVF with creat now at 1.19 -Avoid nephrotoxic agents -Monitor renal/lytes daily Leukocytosis -WBC elevated after pre-treatment for contrast allergy prior to CT scan now improved to 10.8 from 16.6; no signs of infection (3) Hypertensive urgency Current Visit: Yes Status: Acute Assessment & Plan: -SBP peaked at 225 mmHg; improved following hydralazine 10 mg IV. No evidence of end-organ damage. -Resume home antihypertensives -PRN IV hydralazine for SBP >180 mmHg. -Avoid rapid BP reduction; gradual goal <160 systolic within 24 hours. -Monitor neurologic status during BP management. 06/06: - BP now stable with home medications Code(s): I16.0 - HYPERTENSIVE URGENCY (4) Fall Current Visit: Yes Status: Acute Assessment & Plan: -CT head showed no acute intracranial process, but did reveal remote right temporal lobe encephalomalacia consistent with prior infarct. - Chest X-ray, bilateral knee, and tibia/fibula X-rays showed no acute findings -PT/OT -See plan for near syncopal episode 06/06: -PT/OT have evaluated patient with recs for continued OP therapy 06/07: --Arrange SNF placement for rehab at [facility]- pending authorization -Patient demonstrates persistent LUE/LLE weakness, impaired balance, and decreased functional independence in ambulation and ADLs. Requires ongoing skilled PT/OT for gait training, strengthening, and safety. SNF placement indicated for continued multidisciplinary rehabilitation and assistance with medication management, monitoring, and completion of diagnostic follow-up. (2) Tingling of left upper extremity Code(s): W19.XXXA - UNSPECIFIED FALL, INITIAL ENCOUNTER (5) Transaminitis Current Visit: Yes Status: Acute Assessment & Plan: -Mild cholestatic pattern without symptoms. -CMP -trend -Review medications for hepatotoxicity. -Consider RUQ ultrasound if bilirubin or ALP rises 06/06: -Reviewed -Tbili down-trending now at 1.60 AST and ALT WNL, ALP down-trending 06/07: -Stable with TBili at 1.60 AST, ALT wnl ALP at 150 06/08: -AST/ALT/Tbili/ALP reviewed and WNL - resolved Code(s): R74.01 - ELEVATION OF LEVELS OF LIVER TRANSAMINASE LEVELS (6) DMII (diabetes mellitus, type 2) Current Visit: Yes Status: Acute Assessment & Plan: -ADA diet -SSI increased to HD- add meal time 8 units- blood glucose level up due to pre treatment with prednisone for CT scan -monitor closely -A1c 7.09 good control (7) Hypothyroid Current Visit: Yes Status: Acute Assessment & Plan: -Check TSH -Continue levothyroxine- adjust as needed Code(s): E03.9 - HYPOTHYROIDISM, UNSPECIFIED (8) Remote history of stroke Current Visit: Yes Status: Acute Assessment & Plan: -continue plavix, ASA, and Zetia Code(s): Z86.73 - PRSNL HX OF TIA (TIA), AND CEREB INFRC W/O RESID DEFICITS (9) HLD (hyperlipidemia) Current Visit: Yes Status: Acute Assessment & Plan: -continue zetia Code(s): E78.5 - HYPERLIPIDEMIA, UNSPECIFIED (10) Arthritis Current Visit: Yes Status: Acute Assessment & Plan: -continue home meds Code(s): M19.90 - UNSPECIFIED OSTEOARTHRITIS, UNSPECIFIED SITE (11) UTI (urinary tract infection) Current Visit: Yes Status: Acute Qualifiers: Urinary tract infection type: site unspecified Hematuria presence: without hematuria Qualified Code(s): N39.0 - Urinary tract infection, site not specified Assessment & Plan: -treated in ED with ceftriaxone, UA with demonstrated moderate bacteria without pyuria or nitrites. -Patient asymptomatic -Hold further antibiotics- follow culture 06/06: -Negative Ucult - no symptoms VTE: Plavix/ASA/SCD PPI: protonix Dispo: 1-2 days Code status: Full Code Plan of care time spent > 40 mins Code(s): I63.9 - CEREBRAL INFARCTION, UNSPECIFIED (2) Near syncope Current Visit: Yes Status: Acute (3) Tingling of left upper extremity Current Visit: Yes Status: Acute Code(s): R20.2 - PARESTHESIA OF SKIN (4) Hypertensive urgency Current Visit: Yes Status: Acute Code(s): I16.0 - HYPERTENSIVE URGENCY (5) Fall Current Visit: Yes Status: Acute Code(s): W19.XXXA - UNSPECIFIED FALL, INITIAL ENCOUNTER (6) Transaminitis Current Visit: Yes Status: Acute Code(s): R74.01 - ELEVATION OF LEVELS OF LIVER TRANSAMINASE LEVELS (7) DMII (diabetes mellitus, type 2) Current Visit: Yes Status: Acute (8) Hypothyroid Current Visit: Yes Status: Acute Code(s): E03.9 - HYPOTHYROIDISM, UNSPECIFIED (9) Remote history of stroke Current Visit: Yes Status: Acute Code(s): Z86.73 - PRSNL HX OF TIA (TIA), AND CEREB INFRC W/O RESID DEFICITS (10) HLD (hyperlipidemia) Current Visit: Yes Status: Acute Code(s): E78.5 - HYPERLIPIDEMIA, UNS PECIFIED (11) Arthritis Current Visit: Yes Status: Acute Code(s): M19.90 - UNSPECIFIED OSTEOARTHRITIS, UNSPECIFIED SITE (12) UTI (urinary tract infection) Current Visit: Yes Status: Acute Qualifiers: Urinary tract infection type: site unspecified Hematuria presence: without hematuria Qualified Code(s): N39.0 - Urinary tract infection, site not spe cified Code(s): N39.0 - URINARY TRACT INFECTION, SITE NOT SPECIFIED (13) Leukocytosis Current Visit: Yes Status: Acute Code(s): D72.829 - ELEVATED WHITE BLOOD CELL COUNT, UNSPECIFIED (14) FOREST (acute kidney injury) Current Visit: Yes Status: Acute Code(s): N17.9 - ACUTE KIDNEY FAILURE, UNSPECIFIED
[2025-06-09] MEDS ORDERED: MORPHINE SULFATE 2 MG INJ IV ONE (06:12)
[2025-06-09] MEDS: MORPHINE SULFATE 4 MG INJ IV ONE (06:18)
[2025-06-09 06:39] LABS: Hematocrit 35.2 % (34.1-44.9); Hemoglobin 10.8 g/dL (11.2-15.7); Mean Corpuscular Hemoglobin 29.7 pg (25.6-32.2); Mean Corpuscular Hgb Concent. 30.7 g/dL (32.2-35.5); Platelet Count 173 x10^3/uL (182-369); Red Blood Count 3.64 x10^6/uL (3.93-5.22); White Blood Count 10.8 x10^3/uL (3.98-10.04)
[2025-06-09 07:07] LABS: Calcium 8.4 mg/dL (8.4-10.2); Carbon Dioxide 25.0 mmol/L (22-30); Creatinine 1 1.19 mg/dL (0.52-1.04); EST GLOMERULAR FILTRATION RATE 47.7 ML/MIN; Glucose 187.0 mg/dL (74-106); Potassium 4.6 mmol/L (3.5-5.1); SGOT/AST 35.0 U/L (14-36); SGPT/ALT 33.0 U/L (0-35); Total Protein 6.2 g/dL (6.3-8.2)
[2025-06-09] MEDS ORDERED: NORCO 5/325 MG PO PRN (09:16)
[2025-06-09] MEDS: ECOTRIN 81 MG PO SCH (10:40)
[2025-06-10 08:36] LABS: Hematocrit 37.1 % (34.1-44.9); Hemoglobin 11.6 g/dL (11.2-15.7); Mean Corpuscular Hemoglobin 30.2 pg (25.6-32.2); Mean Corpuscular Hgb Concent. 31.3 g/dL (32.2-35.5); Platelet Count 183 x10^3/uL (182-369); Red Blood Count 3.84 x10^6/uL (3.93-5.22); White Blood Count 9.6 x10^3/uL (3.98-10.04)
[2025-06-10 08:52] LABS: Calcium 9.1 mg/dL (8.4-10.2); Carbon Dioxide 26.0 mmol/L (22-30); Creatinine 1 0.98 mg/dL (0.52-1.04); EST GLOMERULAR FILTRATION RATE 60.2 ML/MIN; Glucose 197.0 mg/dL (74-106); Potassium 4.4 mmol/L (3.5-5.1); SGOT/AST 67.0 U/L (14-36); SGPT/ALT 54.0 U/L (0-35); Total Protein 6.7 g/dL (6.3-8.2)
--- NOTE | 2025-06-10 08:59 | PCM.NOTE ---
Date and Time: 06/10/25 0855 Subjective Assessment: Ms. Villarreal is a 75-year-old female with a history of prior cerebrovascular accident, hypertension, hyperlipidemia, type 2 diabetes mellitus, hypothyroidism, gastroesophageal reflux disease, and arthritis, who presented to the emergency department on 06/05/25 after experiencing two falls earlier in the day. The first occurred upon standing to use the restroom when she became lightheaded and dizzy, and the second when her walker rolled forward, causing her to lose balance. She denied loss of consciousness or head strike but reported striking her back. Since then, she has experienced intermittent left arm numbness without other focal neurological symptoms. On arrival, she was alert and oriented, hemodynamically stable aside from severe hypertension (BP 225/79 mmHg), which improved with IV hydralazine and is now well controlled with resumption of her home antihypertensive medications. Neurologic examination revealed no focal weakness or deficits. CT head showed no acute intracranial process but did demonstrate remote right temporal lobe encephalomalacia consistent with prior infarct. MRI brain revealed a small 11 7 mm focus of acute ischemia in the right thalamus without hemorrhage or mass effect, along with atrophy, chronic microvascular ischemic changes, and remote temporal lobe infarct. Carotid ultrasound demonstrated mild to minimal scattered atherosclerotic disease bilaterally with no hemodynamically significant stenosis. Laboratory studies were overall unremarkable, with total bilirubin now 1.6 mg/dL (improved from 2.0), AST and ALT within normal limits, and alkaline phosphatase 144 U/L (reduced from 162). Electrolytes and renal function remain normal, and urine culture was negative despite moderate bacteria on urinalysis. Neurology reviewed the imaging and recommended a CTA of the head and neck, for which the patient will be premedicated due to her iodine contrast allergy, and advised continuation of Plavix, aspirin, and Zetia. They also recommended an outpatient CASSI (not available at this facility) and a 30-day cardiac event monitor to be placed prior to discharge with cardiology follow-up. Occupational therapy evaluated the patient and recommended outpatient therapy, which will be arranged prior to discharge. Possible discharge tomorrow is anticipated pending CTA results and neurology follow-up. 06/06/25: Met with patient bedside. Endorses continued numbness and weakness in her LUE. PT/OT has evaluated patient with recommendations for OP PT/OT. Neurology consulted on MRI findings as stated above. Plan for potential discharge tomorrow with OP follow up with cardiology and neurology pending CTA head/neck and further recommendations from neurology. 06/07/25: Patient evaluated at bedside and continues to demonstrate persistent left upper and lower extremity weakness, resulting in impaired mobility and decreased ability to perform activities of daily living independently. She requires continued skilled therapy for strength, balance, and functional recovery following recent cerebrovascular event workup. Patient expresses preference for discharge to [facility] for skilled rehabilitation. Case management is coordinating placement and authorization. Neurology re-consulted with CTA head and neck showing mild bilateral atherosclerotic disease without significant stenosis. Recommendations include increasing aspirin to 325 mg daily (from home dose of 81 mg), continuation of clopidogrel 75 mg daily and ezetimibe, initiation of PT/OT, and completion of CASSI and 30-day cardiac event monitor post-discharge. 06/08/25: Patient seen and examined this morning with no acute overnight events. She remains hemodynamically stable and at her cognitive baseline. Neurology was re- consulted for further recommendations regarding appropriate aspirin dosing. Intravenous fluids are being continued for management of acute kidney injury, most likely secondary to IV contrast exposure during yesterdays CT scan. White blood cell count remains elevated but is suspected to be related to recent prednisone pre-medication given for contrast allergy prophylaxis, as the patient remains afebrile and clinically without signs of active infection. She continues to participate in inpatient physical and occupational therapy with good effort and ongoing need for assistance in mobility and activities of daily living. The plan is for discharge to a [facility] facility for continued rehabilitation and medical management once insurance authorization is obtained. She remains an appropriate candidate for short-term rehab based on current functional limitations, medical complexity, and continued therapy needs. 06/09/25: Met with patient. She reports mild back pain but no other complaints this morning. SNF currently pending. She remains an appropriate candidate for short- term rehab based on current functional limitations, medical complexity, and continued therapy needs. Neurology re-consulted, with elevated kidney function - they agree for patient to remain on 81mg aspirin daily with plavix/zetia. Aspirin dosing changed to 81mg daily from 325mg daily. 06/10: Met with patient bedside. She reports mild, persistent back pain that is stable compared to yesterday. She reports mild, intermittent back pain that remains stable and well controlled with current measures. She continues to experience numbness in her left upper and lower extremities, which she understands is related to her recent right thalamic stroke. She denies new weakness, dizziness, vision changes, or speech difficulty. No chest pain, shortness of breath, or abdominal pain. Appetite remains good, and she is voiding without difficulty. She expresses motivation to continue her recovery and looks forward to transfer to a [facility] facility for rehabilitation, stating she feels she is getting a little better each day with therapy. Recent labs show normalization of white blood cell count and creatinine, consistent with resolution of prior leukocytosis and FOREST. Liver enzymes show a mild increase (Tbili 1.9 mg/dL, AST 67 U/L, ALT 54 U/L) without associated symptoms. Overall, she remains clinically stable and appropriate for ongoing rehab-focused care. - Review of Systems Constitutional: Weakness Eyes: No Symptoms Ears, Nose, & Throat: No Symptoms Respiratory: No Symptoms Cardiac: No Symptoms Abdominal/Gastrointestinal: No Symptoms Genitourinary Symptoms: No Symptoms Musculoskeletal: No Symptoms Skin: No Symptoms Neurological: Focal Weakness Psychological: No Symptoms Endocrine: No Symptoms Hematologic/Lymphatic: No Symptoms Immunological/Allergic: No Symptoms Objective Exam General Appearance: no apparent distress Neurologic Exam: alert, cooperative, nml station & gait Skin Exam: normal color Wound Assessment: Skin/Wound Assessment Wound/Incision Assessment Start: 06/07/25 11:01 Text: Status: Active Freq: Q6H Protocol: Document 06/10/25 04:00 KD (Rec: 06/10/25 05:43 KD [id number]) Wound/Incision Assessment Left Knee Wound Assessment Shift Assessment Wound Type Skin Tear Wound Stage Non Pressure Wound Dressing Status Dry & Intact Primary Dressing Mepilex Secondary Dressing Gauze Pads Comment CDI, mepilex in place - remains true Left Elbow Wound Assessment Shift Assessment Wound Type Skin Tear Wound Stage Non Pressure Wound Dressing Status Dry & Intact Drainage Amount Minimal Drainage Description Sanguineous Primary Dressing tegaderm Comment Tegaderm in place - remains true Wound Photo Photo Taken No Eye Exam: PERRL Ears, Nose, Throat Exam: normal ENT inspection Neck Exam: normal inspection Respiratory Exam: normal breath sounds, lungs clear Cardiovascular Exam: regular rate/rhythm, normal heart sounds Gastrointestinal/Abdomen Exam: soft, normal bowel sounds Extremity Exam: parasthesia (LUE/LLE) Back Exam: normal inspection Pelvic Exam: deferred Rectal Exam: deferred Objective Data Vital Signs: Vital Signs - 24 hr Temp Pulse Resp BP BP BP Pulse Ox 06/10/25 07:00 98.2 F 64 18 194/81 97 06/10/25 03:00 97.8 F 67 20 173/77 96 06/09/25 23:00 98.4 F 69 20 139/66 98 06/09/25 19:34 98.6 F 66 18 185/74 97 06/09/25 14:00 98.3 F 66 20 184/77 97 06/09/25 10:51 63 20 155/68 06/09/25 10:44 63 155/68 06/09/25 10:43 63 155/68 Pain Assessment - Last Documented Pain Intensity 5 Pain Scale Used 0-10 Pain Scale Intake and Output: Intake & Output 06/07/25 06/08/25 06/09/25 06/10/25 11:59 11:59 11:59 11:59 Intake Total 840 2951 5001 1917 Balance 840 2951 5001 1917 Lab Results: Lab Results-Last 24 Hours 06/09/25 06/09/25 06/09/25 Range/Units 11:32 16:29 21:38 WBC (3.98-10.04) x10^3/uL RBC (3.93-5.22) x10^6/uL Hgb (11.2-15.7) g/dL Hct (34.1-44.9) % MCV (79.4-94.8) fL MCH (25.6-32.2) pg MCHC (32.2-35.5) g/dL RDW (11.7-14.4) % Plt Count (182-369) x10^3/uL MPV (9.4-12.3) fL Sodium (135-145) mmol/L Potassium (3.5-5.1) mmol/L Chloride (98-107) mmol/L Carbon Dioxide (22-30) mmol/L Anion Gap (5-15) MEQ/L BUN (7-17) mg/dL Creatinine (0.52-1.04) mg/dL Estimated GFR ML/MIN Glucose (74-106) mg/dL POC Glucometer 158 H 194 H 142 H (74 to 106) mg/dL Calcium (8.4-10.2) mg/dL Total Bilirubin (0.2-1.3) mg/dL AST (14-36) U/L ALT (0-35) U/L Alkaline Phosphatase (38-126) U/L Serum Total Protein (6.3-8.2) g/dL Albumin (3.5-5.0) g/dL 06/10/25 06/10/25 06/10/25 Range/Units 08:02 08:32 08:32 WBC 9.6 (3.98-10.04) x10^3/uL RBC 3.84 L (3.93-5.22) x10^6/uL Hgb 11.6 (11.2-15.7) g/dL Hct 37.1 (34.1-44.9) % MCV 96.6 H (79.4-94.8) fL MCH 30.2 (25.6-32.2) pg MCHC 31.3 L (32.2-35.5) g/dL RDW 13.8 (11.7-14.4) % Plt Count 183 (182-369) x10^3/uL MPV 9.8 (9.4-12.3) fL Sodium 137 (135-145) mmol/L Potassium 4.4 (3.5-5.1) mmol/L Chloride 105 (98-107) mmol/L Carbon Dioxide 26 (22-30) mmol/L Anion Gap 10.3 (5-15) MEQ/L BUN 26 H (7-17) mg/dL Creatinine 0.98 (0.52-1.04) mg/dL Estimated GFR 60.2 ML/MIN Glucose 197 H (74-106) mg/dL POC Glucometer 194 H (74 to 106) mg/dL Calcium 9.1 (8.4-10.2) mg/dL Total Bilirubin 1.90 H (0.2-1.3) mg/dL AST 67 H (14-36) U/L ALT 54 H (0-35) U/L Alkaline Phosphatase 126 (38-126) U/L Serum Total Protein 6.7 (6.3-8.2) g/dL Albumin 3.9 (3.5-5.0) g/dL Medications: Medications Generic Name Dose Route Start Last Admin Trade Name Freq PRN Reason Stop Dose Admin Acetaminophen 650 mg 06/05/25 16:44 06/10/25 08:25 Acetaminophen 325 Mg Tablet PO 07/05/25 16:43 650 mg Q4H PRN PRN Administration PAIN, FEVER, HEADACHE Hydrocodone Bitart/Acetaminophen 1 tab 06/09/25 09:16 Hydrocodone/Apap 5/325 1 Tab Tablet PO 06/14/25 09:15 Q4H PRN PRN PAIN Aspirin 81 mg 06/09/25 10:00 06/09/25 10:40 Aspirin 81 Mg Tablet.Ec PO 07/09/25 09:59 81 mg QAM MARCELA Administration Atenolol 50 mg 06/05/25 17:00 06/09/25 10:44 Atenolol 50 Mg Tablet PO 07/05/25 16:59 50 mg DAILY MARCELA Administration Clopidogrel Bisulfate 75 mg 06/05/25 17:00 06/09/25 10:45 Clopidogrel Bisulfate 75 Mg Tablet PO 07/05/25 16:59 75 mg DAILY MARCELA Administration Cyclobenzaprine HCl 5 mg 06/05/25 16:55 Cyclobenzaprine Hcl 10 Mg Tablet PO 07/05/25 16:54 HS PRN PRN INSOMNIA Ezetimibe 10 mg 06/05/25 22:00 06/09/25 21:37 Ezetimibe 10 Mg Tab PO 07/05/25 21:59 10 mg HS MARCELA Administration Hydrochlorothiazide 25 mg 06/05/25 17:00 06/06/25 09:03 Hydrochlorothiazide 25 Mg Tablet PO 07/05/25 16:59 25 mg DAILY MARCELA Administration Insulin Human Lispro 0 unit 06/07/25 05:25 06/10/25 08:24 Insulin Lispro 1 Unit SQ 07/07/25 05:24 4 unit UD PRN Administration HYPERGLYCEMIA Insulin Human Lispro 8 unit 06/07/25 12:00 06/10/25 08:23 Insulin Lispro 1 Unit SQ 07/07/25 11:59 8 unit TIDWM MARCELA Administration Levothyroxine Sodium 88 mcg 06/05/25 17:00 06/09/25 10:45 Levothyroxine Sodium 88 Mcg Tablet PO 07/05/25 16:59 88 mcg DAILY MARCELA Administration Losartan Potassium 100 mg 06/05/25 17:00 06/09/25 10:44 Losartan Potassium 50 Mg Tablet PO 07/05/25 16:59 100 mg DAILY MARCELA Administration Miscellaneous Information 1 each 06/05/25 17:00 Medication Intervention 1 Each Each 07/05/25 16:59 .RN TO CHECK MARCELA Ondansetron HCl 4 mg 06/05/25 16:44 Ondansetron Hcl 4 Mg/2 Ml Vial IV 07/05/25 16:43 Q6H PRN PRN NAUSEA/VOMITING Pantoprazole Sodium 40 mg 06/05/25 17:00 06/09/25 10:44 Protonix (Pantoprazole) 40 Mg Tablet PO 07/05/25 16:59 40 mg DAILY MARCELA Administration Discontinued Medications Generic Name Dose Route Start Last Admin Trade Name Freq PRN Reason Stop Dose Admin Acetaminophen 1,000 mg 06/05/25 15:10 06/05/25 15:20 Acetaminophen 500 Mg Tablet PO 06/05/25 15:11 1,000 mg STAT STA Administration Acetaminophen Confirm 06/05/25 15:19 Acetaminophen 500 Mg Tablet Administered 06/05/25 15:20 Dose 1,000 mg .ROUTE .STK-MED ONE Aspirin 81 mg 06/05/25 17:00 06/07/25 11:13 Aspirin 81 Mg Tablet.Ec PO 07/05/25 16:59 81 mg DAILY MARCELA Administration Aspirin 325 mg 06/08/25 10:00 06/08/25 09:39 Aspirin 325 Mg Tablet.Ec PO 07/08/25 09:59 325 mg QAM MARCELA Administration Aspirin 81 mg 06/08/25 14:18 Aspirin 325 Mg Tablet.Ec PO 07/08/25 09:59 QAM MARCELA Diphenhydramine HCl 50 mg 06/07/25 08:00 06/07/25 08:22 Diphenhydramine Hcl 50 Mg/Ml Vial IV 06/07/25 08:01 50 mg 0800 MARCELA Administration Hydralazine HCl 10 mg 06/05/25 14:51 06/05/25 15:04 Hydralazine Hcl 20 Mg/Ml Vial IV 06/05/25 14:52 10 mg STAT ONE Administration Hydralazine HCl Confirm 06/05/25 14:56 Hydralazine Hcl 20 Mg/Ml Vial Administered 06/05/25 14:57 Dose 20 mg .ROUTE .STK-MED ONE Hydralazine HCl 5 mg 06/05/25 16:44 Hydralazine Hcl 20 Mg/Ml Vial IV 07/05/25 16:43 Q4HPRN PRN HYPERTENSION Ceftriaxone Sodium 1 gm in 100 mls @ 200 mls/hr 06/06/25 10:00 06/05/25 15:16 Rocephin 1 Gm / 100 Ml Nacl IV 07/06/25 09:59 200 mls/hr Q24H10 MARCELA 200 mls/hr Administration Ceftriaxone Sodium Confirm 06/05/25 14:57 Rocephin 1 Gm / 100 Ml Nacl Administered 06/05/25 14:58 Dose 1 gm in 100 mls @ ud IV .STK-MED ONE Ceftriaxone Sodium 1 gm in 100 mls @ 200 mls/hr 06/06/25 10:00 Rocephin 1 Gm / 100 Ml Nacl IV 07/06/25 09:59 Q24H10 MARCELA Sodium Chloride 1,000 mls @ 100 mls/hr 06/07/25 05:30 06/09/25 05:48 Sodium Chloride 0.9% 1000 Ml IV 07/07/25 05:29 100 mls/hr .Q10H MARCELA Administration Insulin Human Lispro 0 unit 06/05/25 16:44 06/06/25 21:36 Insulin Lispro 1 Unit SQ 07/05/25 16:43 9 unit UD PRN Administration HYPERGLYCEMIA Lidocaine 1 patch 06/06/25 04:30 06/06/25 04:28 Lidocaine Hcl 1 Patch Patch TOP 06/06/25 04:31 1 patch ONCE ONE Administration Morphine Sulfate 2 mg 06/09/25 06:12 Morphine Sulfate 2 Mg/Ml Inj IV 06/09/25 06:13 STAT ONE Morphine Sulfate 2 mg 06/09/25 06:16 06/09/25 06:18 Morphine Sulfate 4 Mg/Ml Injection IV 06/09/25 06:17 2 mg STAT ONE Administration Non-Formulary Medication 1 each 06/07/25 10:00 06/09/25 10:44 Hold Metformin Products For 48hrs MC 06/09/25 10:00 Not Given Q48H MARCELA Potassium Chloride 40 meq 06/08/25 08:03 06/08/25 08:52 Potassium Chloride Tab 10 Meq Tab PO 06/08/25 08:04 40 meq STAT ONE Administration Potassium Chloride 20 meq 06/08/25 14:00 06/08/25 20:01 Potassium Chloride Tab 10 Meq Tab PO 06/08/25 20:01 20 meq Q2H MARCELA Administration Prednisone 50 mg 06/06/25 18:00 10/16/25 08:22 Prednisone 20 Mg Tablet PO 06/07/25 08:01 50 mg 0200,0800,1800 MARCELA Administration Assessment/Plan (1) Acute stroke due to ischemia Current Visit: Yes Status: Acute Assessment & Plan: - positional dizziness and lightheadedness upon standing, raising concern for an orthostatic component, though neurologic cause cannot be excluded given left arm paresthesia. -CT head negative for acute process, prior infarct noted. -Tele -MRI brain and CTA head/neck to evaluate for ischemia or vascular stenosis -Echocardiogram -Orthostatic vitals -Neurology consultation for evaluation of transient left arm numbness and prior stroke. -Neuro checks every 4 hours; fall precautions. -PT/OT evaluation for balance and gait safety. 06/06: -MRI findings revealed a small 11 7 mm focus of acute ischemia in the right thalamus without hemorrhage or mass effect, along with atrophy, chronic microvascular ischemic changes, and remote temporal lobe infarct. -Carotid ultrasound demonstrated mild to minimal scattered atherosclerotic disease bilaterally with no hemodynamically significant stenosis. -Neurology consulted - agree with plan- continue ASA/Plavix/Zetia- patient will need CASSI as OP and 30 day event monitor placed on discharge with cardiology/neurology follow up - Will get CTA head/neck- patient will need pre- medicated due to allergy per protocol - Prednisone 50mg at 15hours, 7hours, and 1 hour prior to exam at 9 a.m . Benadryl 50mg 1 hour prior to exams. Nursing notified and pharmacy has scheduled premedication 06/07: -CMP/CBC reviewed -Neurology documentation reviewed - agree with plan -CTA head/neck reviewed mild bilateral atherosclerotic disease without significant stenosis;Increase aspirin to 325 mg daily (from home 81 mg);Continue clopidogrel 75 mg daily and ezetimibe. -Arrange CASSI and 30-day event monitor post-discharge for further embolic source evaluation. -Arrange SNF placement for rehab at [facility]- pending authorization -Patient demonstrates persistent LUE/LLE weakness, impaired balance, and decreased functional independence in ambulation and ADLs. Requires ongoing skilled PT/OT for gait training, strengthening, and safety. SNF placement indicated for continued multidisciplinary rehabilitation and assistance with medication management, monitoring, and completion of diagnostic follow-up. 06/08: -Neurology re-consulted regarding need for ASA 325mg- will continue at 81mg for now -SNF pending -Continue plan as above 06/09: -Neurology agrees to 81mg ASA daily kidney function -SNF pending -Requires ongoing skilled PT/OT for gait training, strengthening, and safety. 06/10: -Continue dual antiplatelet therapy: aspirin 81 mg daily and clopidogrel 75 mg daily. -Maintain ezetimibe 10 mg daily for secondary prevention. -Continue PT/OT for strength, balance, and mobility recovery; remains an appropriate SNF candidate. -Neuro checks q4h; fall precautions in place. -Outpatient CASSI and 30-day cardiac event monitor to be arranged post-discharge. (2) Tingling of left upper extremity Current Visit: Yes Status: Acute Assessment & Plan: -see near syncope for plan Code(s): R20.2 - PARESTHESIA OF SKIN FOREST -Most likely secondary to Contrast Dye- improving with IVF with creat now at 1.19 -Avoid nephrotoxic agents -Monitor renal/lytes daily 06/10: -Creatinine normalized (0.9 mg/dL). Maintain hydration and avoid nephrotoxic agents. Leukocytosis -WBC elevated after pre-treatment for contrast allergy prior to CT scan now improved to 10.8 from 16.6; no signs of infection 06/10: -WBC normalized at 9.6, consistent with resolution after prior prednisone pre- treatment. (3) Hypertensive urgency Current Visit: Yes Status: Acute Assessment & Plan: -SBP peaked at 225 mmHg; improved following hydralazine 10 mg IV. No evidence of end-organ damage. -Resume home antihypertensives -PRN IV hydralazine for SBP >180 mmHg. -Avoid rapid BP reduction; gradual goal <160 systolic within 24 hours. -Monitor neurologic status during BP management. 06/06: - BP now stable with home medications Code(s): I16.0 - HYPERTENSIVE URGENCY (4) Fall Current Visit: Yes Status: Acute Assessment & Plan: -CT head showed no acute intracranial process, but did reveal remote right temporal lobe encephalomalacia consistent with prior infarct. - Chest X-ray, bilateral knee, and tibia/fibula X-rays showed no acute findings -PT/OT -See plan for near syncopal episode 06/06: -PT/OT have evaluated patient with recs for continued OP therapy 06/07: --Arrange SNF placement for rehab at [facility]- pending authorization -Patient demonstrates persistent LUE/LLE weakness, impaired balance, and decreased functional independence in ambulation and ADLs. Requires ongoing skilled PT/OT for gait training, strengthening, and safety. SNF placement indicated for continued multidisciplinary rehabilitation and assistance with medication management, monitoring, and completion of diagnostic follow-up. (2) Tingling of left upper extremity Code(s): W19.XXXA - UNSPECIFIED FALL, INITIAL ENCOUNTER (5) Transaminitis Current Visit: Yes Status: Acute Assessment & Plan: -Mild cholestatic pattern without symptoms. -CMP -trend -Review medications for hepatotoxicity. -Consider RUQ ultrasound if bilirubin or ALP rises 06/06: -Reviewed -Tbili down-trending now at 1.60 AST and ALT WNL, ALP down-trending 06/07: -Stable with TBili at 1.60 AST, ALT wnl ALP at 150 06/08: -AST/ALT/Tbili/ALP reviewed and WNL - resolved 06/10: -Labs: Tbili 1.9 AST 67, ALT 54, ALP stable at 126 -Pattern suggests mild hepatocellular injury, possibly related to ezetimibe, acetaminophen, or transient hepatic stress -Lipid and A1c pending -trend -add hepatitis panel -Review medications for hepatotoxicity; limit acetaminophen < 2 g/day. -Encourage hydration and adequate oral intake. -If LFTs continue to rise or symptoms develop, obtain RUQ ultrasound and consider holding ezetimibe. Code(s): R74.01 - ELEVATION OF LEVELS OF LIVER TRANSAMINASE LEVELS (6) DMII (diabetes mellitus, type 2) Current Visit: Yes Status: Acute Assessment & Plan: -ADA diet -SSI increased to HD- add meal time 8 units- blood glucose level up due to pre treatment with prednisone for CT scan -monitor closely -A1c 7.09 good control (7) Hypothyroid Current Visit: Yes Status: Acute Assessment & Plan: -Check TSH -Continue levothyroxine- adjust as needed Code(s): E03.9 - HYPOTHYROIDISM, UNSPECIFIED (8) Remote history of stroke Current Visit: Yes Status: Acute Assessment & Plan: -continue plavix, ASA, and Zetia Code(s): Z86.73 - PRSNL HX OF TIA (TIA), AND CEREB INFRC W/O RESID DEFICITS (9) HLD (hyperlipidemia) Current Visit: Yes Status: Acute Assessment & Plan: -continue zetia Code(s): E78.5 - HYPERLIPIDEMIA, UNSPECIFIED (10) Arthritis Current Visit: Yes Status: Acute Assessment & Plan: -continue home meds Code(s): M19.90 - UNSPECIFIED OSTEOARTHRITIS, UNSPECIFIED SITE (11) UTI (urinary tract infection) Current Visit: Yes Status: Acute Qualifiers: Urinary tract infection type: site unspecified Hematuria presence: without hematuria Qualified Code(s): N39.0 - Urinary tract infection, site not specified Assessment & Plan: -treated in ED with ceftriaxone, UA with demonstrated moderate bacteria without pyuria or nitrites. -Patient asymptomatic -Hold further antibiotics- follow culture 06/06: -Negative Ucult - no symptoms VTE: Plavix/ASA/SCD PPI: protonix Dispo: 1-2 days Code status: Full Code Plan of care time spent > 40 mins Code(s): I63.9 - CEREBRAL INFARCTION, UNSPECIFIED (2) Near syncope Current Visit: Yes Status: Acute (3) Tingling of left upper extremity Current Visit: Yes Status: Acute Code(s): R20.2 - PARESTHESIA OF SKIN (4) Hypertensive urgency Current Visit: Yes Status: Acute Code(s): I16.0 - HYPERTENSIVE URGENCY (5) Fall Current Visit: Yes Status: Acute Code(s): W19.XXXA - UNSPECIFIED FALL, INITIAL ENCOUNTER (6) Transaminitis Current Visit: Yes Status: Acute Code(s): R74.01 - ELEVATION OF LEVELS OF LIVER TRANSAMINASE LEVELS (7) DMII (diabetes mellitus, type 2) Current Visit: Yes Status: Acute (8) Hypothyroid Current Visit: Yes Status: Acute Code(s): E03.9 - HYPOTHYROIDISM, UNSPECIFIED (9) Remote history of stroke Current Visit: Yes Status: Acute Code(s): Z86.73 - PRSNL HX OF TIA (TIA), AND CEREB INFRC W/O RESID DEFICITS (10) HLD (hyperlipidemia) Current Visit: Yes Status: Acute Code(s): E78.5 - HYPERLIPIDEMIA, UNSPECIFIED (11) Arthritis Current Visit: Yes Status: Acute Code(s): M19.90 - UNSPECIFIED OSTEOARTHRITIS, UNSPECIFIED SITE (12) UTI (urinary tract infection) Current Visit: Yes Status: Acute Qualifiers: Urinary tract infection type: site unspecified Hematuria presence: without hematuria Qualified Code(s): N39.0 - Urinary tract infection, site not specified Code(s): N39.0 - URINARY TRACT INFECTION, SITE NOT SPECIFIED (13) Leukocytosis Current Visit: Yes Status: Acute Code(s): D72.829 - ELEVATED WHITE BLOOD CELL COUNT, UNSPECIFIED (14) FOREST (acute kidney injury) Current Visit: Yes Status: Acute Code(s): N17.9 - ACUTE KIDNEY FAILURE, UNSPECIFIED
[2025-06-10 09:50] LABS: Cholesterol 174.0 mg/dL (50-200); LDL, DIRECT 85.0 mg/dL (30-100); TRIGLYCERIDE 173.0 mg/dL (30-150)
[2025-06-10] MEDS: NORVASC 5 MG PO ONE (13:42)
[2025-06-11 03:26] VITALS: RESP 18
[2025-06-11 04:58] LABS: BASOPHIL % 0.2 % (0.1-1.2); Basophil (Absolute #) 0.02 x10^3/uL (0.01-0.08); Eosinophil (Absolute #) 0.49 x10^3/uL (0.04-0.36); Hematocrit 34.7 % (34.1-44.9); Hemoglobin 10.8 g/dL (11.2-15.7); IMMATURE GRAN # 0.07 x10^3u/L (0.001-0.031); IMMATURE GRAN % 0.7 % (0.001-0.429); Lymphocyte (Absolute #) 2.39 x10^3/uL (1.18-3.74); Mean Corpuscular Hemoglobin 29.9 pg (25.6-32.2); Mean Corpuscular Hgb Concent. 31.1 g/dL (32.2-35.5); Monocyte (Absolute #) 0.96 x10^3/uL (0.24-0.86); NUCLEATED RBC # 0.00 x10^3u/L (0.00-0.012); NUCLEATED RBC % 0.0 % (0.00-0.2); Platelet Count 171 x10^3/uL (182-369); Red Blood Count 3.61 x10^6/uL (3.93-5.22); White Blood Count 10.3 x10^3/uL (3.98-10.04)
[2025-06-11 05:34] LABS: Calcium 8.7 mg/dL (8.4-10.2); Carbon Dioxide 26.0 mmol/L (22-30); Creatinine 1 1.07 mg/dL (0.52-1.04); EST GLOMERULAR FILTRATION RATE 54.2 ML/MIN; Glucose 202.0 mg/dL (74-106); Potassium 3.9 mmol/L (3.5-5.1); SGOT/AST 43.0 U/L (14-36); SGPT/ALT 48.0 U/L (0-35); Total Protein 6.0 g/dL (6.3-8.2)
[2025-06-11 07:32] VITALS: TEMP 98.3; O2SAT 99
[2025-06-11] MEDS: NORVASC 5 MG PO SCH (09:39)
[2025-06-11 09:40] VITALS: BP 150/60; PULSE 60
--- NOTE | 2025-06-11 09:46 | PCM.DS ---
Discharge Summary Date of Admission: 06/05/25 15:32 Date of Discharge: 06/11/25 Admitting Physician: SHIVA SENIOR MD Consults: Consults on Case 06/05/25 16:44 Consult Neurology ROUTINE Primary Care Provider: Darshana VELIZ Allergies Allergies erythromycin base Allergy (Verified 06/05/25 11:37) Anaphylactic Reaction iodine Allergy (Verified 06/05/25 11:37) Anaphylactic Reaction procaine [From Novocain] Allergy (Verified 06/05/25 11:37) Anaphylactic Reaction azithromycin [From Zithromax] Adverse Reaction (Verified 06/05/25 11:37) Rash Penicillins Adverse Reaction (Verified 06/05/25 11:37) Rash Rjatyvy-TEI-[id number] Reductase Inhibitor Adverse Reaction (Verified 06/10/25 10:34) Muscle Aches Sulfa (Sulfonamide Antibiotics) Adverse Reaction (Verified 06/05/25 11:37) Rash Hospital Summary - Hospital Course Hospital Course: Ms. Villarreal is a 75-year-old female with a history of prior cerebrovascular accident, hypertension, hyperlipidemia, type 2 diabetes mellitus, hypothyroidism, GERD, and arthritis who presented on 06/05/25 after two falls earlier that day, the first associated with lightheadedness and the second due to loss of balance with her walker. She denied loss of consciousness or head trauma but noted intermittent left arm numbness thereafter. On admission, she was hypertensive (BP 225/79 mmHg), which improved with IV hydralazine and resumption of home medications. Neurologic exam was nonfocal, though MRI revealed an acute right thalamic infarct (11 7 mm), with chronic microvascular changes and prior right temporal encephalomalacia. Carotid ultrasound and subsequent CTA head/neck showed mild bilateral atherosclerosis without significant stenosis. Neurology recommended dual antiplatelet therapy (aspirin 81 mg daily, clopidogrel 75 mg), continuation of ezetimibe (as the patient is statin-intolerant), outpatient CASSI, and a 30-day cardiac event monitor, both of which have been arranged. During her stay, the patient developed persistent left upper and lower extremity weakness, limiting mobility and ADLs, and necessitating skilled rehabilitation. OT and PT evaluations support the need for continued therapy, and she has expressed interest in rehab to aid recovery. Labs during admission were notable for transient leukocytosis and AKIboth resolvedand a mild rise in liver enzymes without clinical symptoms. She remains hemodynamically stable, cognitively at baseline, and clinically appropriate for discharge. On 06/11/25, [facility] and ongoing recovery, with outpatient follow-up arranged with cardiology, neurology, and primary care. - Vitals & Intake/Output Vital Signs: Vital Signs Temperature 98.3 F 06/11/25 07:00 Pulse Rate 60 06/11/25 09:39 Respiratory Rate 18 06/11/25 07:00 Blood Pressure 150/60 06/11/25 09:39 O2 Sat by Pulse Oximetry 99 06/11/25 07:00 Intake & Output: Intake & Output 06/08/25 06/09/25 06/10/25 06/11/25 11:59 11:59 11:59 11:59 Intake Total 2951 5001 2157 1400 Balance 2951 5001 2157 1400 - Lab Result Diagrams: 06/11/25 04:52 06/11/25 04:52 Lab Results-Last 24 Hrs: Lab Results-Last 24 Hours 06/10/25 06/10/25 06/10/25 Range/Units 08:30 11:24 16:25 WBC (3.98-10.04) x10^3/uL RBC (3.93-5.22) x10^6/uL Hgb (11.2-15.7) g/dL Hct (34.1-44.9) % MCV (79.4-94.8) fL MCH (25.6-32.2) pg MCHC (32.2-35.5) g/dL RDW (11.7-14.4) % Plt Count (182-369) x10^3/uL MPV (9.4-12.3) fL Gran % (34.0-71.1) % Immature Gran % (Auto) (0.001-0.429) % Nucleat RBC Rel Count (0.00-0.2) % Eos # (Auto) (0.04-0.36) x10^3/uL Immature Gran # (Auto) (0.001-0.031) x10^3u/L Absolute Lymphs (auto) (1.18-3.74) x10^3/uL Absolute Monos (auto) (0.24-0.86) x10^3/uL Absolute Nucleated RBC (0.00-0.012) x10^3u/L Lymphocytes % (19.3-51.7) % Monocytes % (4.7-12.5) % Eosinophils % (0.7-5.8) % Basophils % (0.1-1.2) % Absolute Granulocytes (1.56-6.13) x10^3/uL Basophils # (0.01-0.08) x10^3/uL Sodium (135-145) mmol/L Potassium (3.5-5.1) mmol/L Chloride (98-107) mmol/L Carbon Dioxide (22-30) mmol/L Anion Gap (5-15) MEQ/L BUN (7-17) mg/dL Creatinine (0.52-1.04) mg/dL Estimated GFR ML/MIN Glucose (74-106) mg/dL POC Glucometer 201 H 200 H (74 to 106) mg/dL Hemoglobin A1c (4.5-6.0) % Calcium (8.4-10.2) mg/dL Total Bilirubin (0.2-1.3) mg/dL AST (14-36) U/L ALT (0-35) U/L Alkaline Phosphatase (38-126) U/L Serum Total Protein (6.3-8.2) g/dL Albumin (3.5-5.0) g/dL Triglycerides 173 H (30-150) mg/dL Cholesterol 174 (50-200) mg/dL LDL Cholesterol 85 (30-100) mg/dL HDL Cholesterol 51 (40-60) mg/dL Heart Disease Risk Ratio 3.0 06/10/25 06/10/25 06/11/25 Range/Units 21:31 Unknown 04:52 WBC 10.3 H (3.98-10.04) x10^3/uL RBC 3.61 L (3.93-5.22) x10^6/uL Hgb 10.8 L (11.2-15.7) g/dL Hct 34.7 (34.1-44.9) % MCV 96.1 H (79.4-94.8) fL MCH 29.9 (25.6-32.2) pg MCHC 31.1 L (32.2-35.5) g/dL RDW 13.8 (11.7-14.4) % Plt Count 171 L (182-369) x10^3/uL MPV 10.0 (9.4-12.3) fL Gran % 61.9 (34.0-71.1) % Immature Gran % (Auto) 0.7 H (0.001-0.429) % Nucleat RBC Rel Count 0.0 (0.00-0.2) % Eos # (Auto) 0.49 H (0.04-0.36) x10^3/uL Immature Gran # (Auto) 0.07 H (0.001-0.031) x10^3u/L Absolute Lymphs (auto) 2.39 (1.18-3.74) x10^3/uL Absolute Monos (auto) 0.96 H (0.24-0.86) x10^3/uL Absolute Nucleated RBC 0.00 (0.00-0.012) x10^3u/L Lymphocytes % 23.2 (19.3-51.7) % Monocytes % 9.3 (4.7-12.5) % Eosinophils % 4.7 (0.7-5.8) % Basophils % 0.2 (0.1-1.2) % Absolute Granulocytes 6.39 H (1.56-6.13) x10^3/uL Basophils # 0.02 (0.01-0.08) x10^3/uL Sodium (135-145) mmol/L Potassium (3.5-5.1) mmol/L Chloride (98-107) mmol/L Carbon Dioxide (22-30) mmol/L Anion Gap (5-15) MEQ/L BUN (7-17) mg/dL Creatinine (0.52-1.04) mg/dL Estimated GFR ML/MIN Glucose (74-106) mg/dL POC Glucometer 131 H (74 to 106) mg/dL Hemoglobin A1c 7.19 H (4.5-6.0) % Calcium (8.4-10.2) mg/dL Total Bilirubin (0.2-1.3) mg/dL AST (14-36) U/L ALT (0-35) U/L Alkaline Phosphatase (38-126) U/L Serum Total Protein (6.3-8.2) g/dL Albumin (3.5-5.0) g/dL Triglycerides (30-150) mg/dL Cholesterol (50-200) mg/dL LDL Cholesterol (30-100) mg/dL HDL Cholesterol (40-60) mg/dL Heart Disease Risk Ratio 06/11/25 06/11/25 Range/Units 04:52 07:16 WBC (3.98-10.04) x10^3/uL RBC (3.93-5.22) x10^6/uL Hgb (11.2-15.7) g/dL Hct (34.1-44.9) % MCV (79.4-94.8) fL MCH (25.6-32.2) pg MCHC (32.2-35.5) g/dL RDW (11.7-14.4) % Plt Count (182-369) x10^3/uL MPV (9.4-12.3) fL Gran % (34.0-71.1) % Immature Gran % (Auto) (0.001-0.429) % Nucleat RBC Rel Count (0.00-0.2) % Eos # (Auto) (0.04-0.36) x10^3/uL Immature Gran # (Auto) (0.001-0.031) x10^3u/L Absolute Lymphs (auto) (1.18-3.74) x10^3/uL Absolute Monos (auto) (0.24-0.86) x10^3/uL Absolute Nucleated RBC (0.00-0.012) x10^3u/L Lymphocytes % (19.3-51.7) % Monocytes % (4.7-12.5) % Eosinophils % (0.7-5.8) % Basophils % (0.1-1.2) % Absolute Granulocytes (1.56-6.13) x10^3/uL Basophils # (0.01-0.08) x10^3/uL Sodium 136 (135-145) mmol/L Potassium 3.9 (3.5-5.1) mmol/L Chloride 105 (98-107) mmol/L Carbon Dioxide 26 (22-30) mmol/L Anion Gap 9.5 (5-15) MEQ/L BUN 25 H (7-17) mg/dL Creatinine 1.07 H (0.52-1.04) mg/dL Estimated GFR 54.2 ML/MIN Glucose 202 H (74-106) mg/dL POC Glucometer 211 H (74 to 106) mg/dL Hemoglobin A1c (4.5-6.0) % Calcium 8.7 (8.4-10.2) mg/dL Total Bilirubin 1.70 H (0.2-1.3) mg/dL AST 43 H (14-36) U/L ALT 48 H (0-35) U/L Alkaline Phosphatase 122 (38-126) U/L Serum Total Protein 6.0 L (6.3-8.2) g/dL Albumin 3.5 (3.5-5.0) g/dL Triglycerides (30-150) mg/dL Cholesterol (50-200) mg/dL LDL Cholesterol (30-100) mg/dL HDL Cholesterol (40-60) mg/dL Heart Disease Risk Ratio Micro Results-Entire Visit: Microbiology 06/05/25 11:43 Urine Culture - Final Catherized NO GROWTH Accuchecks Date 06/11/25 Date 06/10/25 Date 06/10/25 Time 07:31 Time 16:35 Time 11:27 - Procedures and Test Procedures and Tests throughout Hospitalization: Therapy Orders & Screens 06/05/25 16:44 PT Eval & Treat (MD Order) ONCE Reason for Eval:: falls Diagnosis: multipule falls/Left arm numbness, dizziness EKG REPEAT IN AM Comment: Diagnosis: multipule falls/Left arm numbness, dizziness OT Eval and Treat (MD Order) ONCE Comment: Physician Instructions: Reason For Exam: Diagnosis: multipule falls/Left arm numbness, dizziness Discharge Exam General Appearance: no apparent distress, alert Neurologic Exam: alert, oriented x 3, cooperative, normal mood/affect, nml cerebellar function, sensation nml, motor weakness (left hand), No motor deficits Eye Exam: PERRL, EOMI, eyes nml inspection Ears, Nose, Throat Exam: normal ENT inspection, pharynx normal, moist mucous membranes Neck Exam: normal inspection, non-tender, supple, full range of motion Respiratory Exam: normal breath sounds, lungs clear, No respiratory distress Cardiovascular Exam: regular rate/rhythm, normal heart sounds Gastrointestinal/Abdomen Exam: soft, No tenderness, No mass Pelvic Exam: deferred Rectal Exam: deferred Back Exam: normal inspection, normal range of motion, No CVA tenderness, No vertebral tenderness Extremity Exam: normal inspection, normal range of motion Skin Exam: normal color, warm, dry Wound Assessment: Skin/Wound Assessment Wound/Incision Assessment Start: 06/07/25 11:01 Text: Status: Active Freq: Q6H Protocol: Document 06/11/25 04:00 KD (Rec: 06/11/25 04:51 KD [id number]) Wound/Incision Assessment Left Knee Wound Assessment Shift Assessment Wound Type Skin Tear Wound Stage Non Pressure Wound Dressing Status Dry & Intact Drainage Amount None Primary Dressing Mepilex Comment mepilex in place, CDI - remains true Left Elbow Wound Assessment Shift Assessment Wound Type Skin Tear Wound Stage Non Pressure Wound Dressing Status Dry & Intact Primary Dressing Mepilex Comment mepilex in place, CDI Wound Photo Photo Taken No Final Diagnosis/Problem List - Final Discharge Diagnosis/Problem (1) Acute stroke due to ischemia Current Visit: Yes Status: Acute Assessment & Plan: -CT head negative for acute process, prior infarct noted. -Tele - PT/OT/ST - Echo -Neuro checks every 4 hours; fall precautions. -MRI findings revealed a small 11 7 mm focus of acute ischemia in the right thalamus without hemorrhage or mass effect, along with atrophy, chronic microvascular ischemic changes, and remote temporal lobe infarct. -Carotid ultrasound demonstrated mild to minimal scattered atherosclerotic disease bilaterally with no hemodynamically significant stenosis. -Neurology consulted - agree with plan- continue ASA/Plavix/Zetia- patient will need CASSI as OP and 30 day event monitor placed on discharge with cardiology/neurology follow up - Appointments made for f/u OP - SNF placement for rehab at [facility]-going today - Pt unable to tolerate high dose statins per family Code(s): I63.9 - CEREBRAL INFARCTION, UNSPECIFIED (2) Tingling of left upper extremity Current Visit: Yes Status: Acute Assessment & Plan: - 2:2 stoke - PT/OT Code(s): R20.2 - PARESTHESIA OF SKIN (3) Transaminitis Current Visit: Yes Status: Acute Assessment & Plan: - ASt 43, ALT 48 - Will need OP F/U with repeat labs with PCP Code(s): R74.01 - ELEVATION OF LEVELS OF LIVER TRANSAMINASE LEVELS (4) FOREST (acute kidney injury) Current Visit: Yes Status: Acute Assessment & Plan: - Kidney function near baseline today - CMP reviewed Code(s): N17.9 - ACUTE KIDNEY FAILURE, UNSPECIFIED (5) Fall Current Visit: Yes Status: Acute Assessment & Plan: - SNF placement for rehab at [facility] for PT/OT post stroke Code(s): W19.XXXA - UNSPECIFIED FALL, INITIAL ENCOUNTER (6) Leukocytosis Current Visit: Yes Status: Acute Assessment & Plan: - WBC 10.3- slightly elevated- trend and f/u with PCP OP Code(s): D72.829 - ELEVATED WHITE BLOOD CELL COUNT, UNSPECIFIED (7) Hypothyroid Current Visit: Yes Status: Chronic Assessment & Plan: - Continue synthroid Code(s): E03.9 - HYPOTHYROIDISM, UNSPECIFIED (8) Remote history of stroke Current Visit: Yes Status: Chronic Assessment & Plan: -Continue plavix, ASA, and Zetia - Per family pt unable to tolerate high dose statins and will not take as it caused muscle pain in the past Code(s): Z86.73 - PRSNL HX OF TIA (TIA), AND CEREB INFRC W/O RESID DEFICITS (9) Arthritis Current Visit: Yes Status: Chronic Assessment & Plan: - Continue home meds Code(s): M19.90 - UNSPECIFIED OSTEOARTHRITIS, UNSPECIFIED SITE (10) DMII (diabetes mellitus, type 2) Current Visit: Yes Status: Chronic Assessment & Plan: -ADA diet -SSI HD and meal time 8 units humalog- blood glucose level up due to pre treatment with prednisone for CT scan -monitor closely -A1c 7.09 good control (11) UTI (urinary tract infection) Current Visit: Yes Status: Ruled-out Assessment & Plan: - UC negative - Antibiotic stopped Code(s): N39.0 - URINARY TRACT INFECTION, SITE NOT SPECIFIED (12) Hypertensive urgency Current Visit: Yes Status: Resolved Assessment & Plan: - Resolved and stable with home meds Code(s): I16.0 - HYPERTENSIVE URGENCY - Discharge Discharge Date: 06/11/25 ([facility]) Disposition: XFER OTHER Condition: Stable Prescriptions: Continue Atenolol 50 mg [Tenormin 50 mg] 50 mg PO DAILY Metformin HCl 500 mg [Glucophage 500 MG] 500 mg PO BID Naproxen Sodium 550 mg PO BID Losartan Potassium 50 mg [Cozaar 50 MG] 100 mg PO DAILY Glimepiride 1.5 mg PO DAILY Clopidogrel Bisulfate [PLAVIX Tablet] 75 mg PO DAILY Azelastine HCl 1 drop DROPS BID PRN Aspirin 81 mg PO DAILY Levothyroxine Sodium 88 Mcg [Synthroid 88 Mcg] 88 mcg PO DAILY Hydrochlorothiazide 25 mg [hydroDIURIL 25 MG] 25 mg PO DAILY Ezetimibe 10 mg [Zetia 10 MG] 10 mg PO HS Cholecalciferol (Vitamin D3) [Vitamin D3] 50 mcg PO DAILY Cyclobenzaprine HCl 5 mg PO HS PRN PRN Reason: Insomnia Additional Instructions: [facility]DC ORDERS: ADMIT TO [facility] 1800 REJI ADA DIET ACHS ACCU CHECKS PT/OT EVAL AND TREAT SEE ATTACHED MED LIST PATIENT HAS WALKER ORDER WITH [facility]- WAITING FOR DELIVERY WHEN READY Follow up with: EDREK MEJIAS [CONSULTING PHYSICIAN, CARDIOLOGY] - 06/18/25 3:15 pm MANAN JAMISON MD [CONSULTING PHYSICIAN, CARDIOLOGY] - 06/15/25 10:30 am BRUCE ROJAS NP [NON-STAFF PHY W/O PRIVILEGES, UNKNOWN] - 06/18/25 9:00 am NICOLASA GIBBS DO [NON-STAFF PHY W/O PRIVILEGES, NEUROLOGY] - 10/05/25 1:45 pm Referral Note:
== END 2025-06-11 10:48 ==
LOC: ED 11:34 → MED SURG 15:32
PROVIDERS: ADMIT Internal Medicine; ATTEND Internal Medicine
DX: I63.9 Cerebral infarction, unspecified (principal); R20.2 Paresthesia of skin; R74.01 Elevation of levels of liver transaminase levels; N17.9 Acute kidney failure, unspecified; W19.XXXA Unspecified fall, initial encounter; D72.829 Elevated white blood cell count, unspecified; E03.9 Hypothyroidism, unspecified; Z86.73 Personal history of transient ischemic attack (TIA), and cerebral infarction without residual deficits; M19.90 Unspecified osteoarthritis, unspecified site; E11.9 Type 2 diabetes mellitus without complications; N39.0 Urinary tract infection, site not specified; I16.0 Hypertensive urgency; I10 Essential (primary) hypertension; K21.9 Gastro-esophageal reflux disease without esophagitis; E78.5 Hyperlipidemia, unspecified; Z79.01 Long term (current) use of anticoagulants; Z79.899 Other long term (current) drug therapy